=== PATIENT | female | born 1990 | race Caucasian/White ===

== ENCOUNTER → 2018-06-25 09:37 | Outpatient (CLI) | payer OTHER, SELFPAY ==
[2018-06-25 10:31] LABS: Bilirubin Urine UA NEGATIVE (NEGATIVE); Color Urine UA YELLOW; Glucose Urine UA NEGATIVE (Normal); Ketones Urine UA NEGATIVE (NEGATIVE); Leukocyte Esterase Urine UA TRACE (NEGATIVE); Nitrite Urine UA Negative (Negative); Occult Blood Urine UA 2+ (Negative); Protein Urine UA NEGATIVE (Negative); Specific Gravity Urine UA 1.015 (1.000-1.035); Urobilinogen Urine UA 0.2 E.U./dL (0.2)
[2018-06-25 10:55] LABS: Appearance Urine UA Slightly Cloudy; RBC Urine 30-100/HPF (0-5/HPF); WBC Urine 30-100/HPF (0-5/HPF)
[2018-06-25 10:56] LABS: Bacteria Urine Few (2-10); Culture Indicated Urine Specimen Cultured; Mucus Urine 1+ (Negative); Squamous Epithelial Cell Urine 0-1 /HPF
== END ==
PROVIDERS: PCP Family Medicine; Visit Provider Specialist
DX: R31.9 Hematuria, unspecified (principal)
CPT/HCPCS: 81001; 87077; 87086; 87186

== ENCOUNTER → 2019-10-26 13:15 | Outpatient (CLI) | payer OTHER, SELFPAY ==
[2019-10-26 14:48] LABS: HCG Quantitative /Beta subunit 20639 mIU/mL
== END ==
PROVIDERS: PCP Family Medicine; Visit Provider Specialist
DX: O20.9 Hemorrhage in early pregnancy, unspecified (principal)
CPT/HCPCS: 36415; 84702

== ENCOUNTER → 2019-10-28 08:21 | Outpatient (CLI) | payer OTHER, SELFPAY ==
[2019-10-28 10:00] LABS: HCG Quantitative /Beta subunit 29881 mIU/mL
== END ==
PROVIDERS: PCP Family Medicine; Visit Provider Specialist
DX: O20.9 Hemorrhage in early pregnancy, unspecified (principal)
CPT/HCPCS: 36415; 84702

== ENCOUNTER → 2019-11-16 10:44 | Outpatient (CLI) | payer OTHER, SELFPAY ==
[2019-11-16 11:40] LABS: Add Manual Diff / Slide Review NO; Basophils Absolute Auto 0 /uL (0-100); Basophils Percent Auto 0.4 % (0-2); Eosinophils Absolute Auto 100 /uL (0-450); Hematocrit 37.3 % (36-46); Hemoglobin 12.9 g/dL (12.0-16.0); Lymphocytes Absolute Auto 1600 /uL (1100-4500); Lymphocytes Percent Auto 27.6 % (25-40); Mean Corpuscular HGB Conc 34.5 % (30-36); Mean Corpuscular Hemoglobin 31.5 PG (26-34); Mean Corpuscular Volume 91.4 fL (80-100); Monocytes Absolute Auto 400 /uL (0-900); Monocytes Percent Auto 7.1 % (3-14); Neutrophils Absolute Auto 3700 /uL (1500-7000); Neutrophils Percent Auto 63.9 % (50-75); Platelet Count 186 X10^3/uL (150-400); Red Blood Cell Count 4.08 X10^6/uL (4.0-5.2); Red Cell Distribution Width 12.3 % (11.6-14.8); White Blood Cell Count 5.9 X10^3/uL (4.5-11.0)
[2019-11-16 11:45] LABS: Appearance Urine UA CLEAR; Bilirubin Urine UA NEGATIVE (NEGATIVE); Color Urine UA YELLOW; Glucose Urine UA NEGATIVE (Negative); Ketones Urine UA NEGATIVE (NEGATIVE); Leukocyte Esterase Urine UA NEGATIVE (NEGATIVE); Nitrite Urine UA NEGATIVE (Negative); Occult Blood Urine UA NEGATIVE (Negative); Protein Urine UA NEGATIVE (Negative); Urobilinogen Urine UA 0.2 E.U./dL (0.2)
[2019-11-16 16:52] LABS: Hepatitis B Surface Antigen NEGATIVE s/c (NEGATIVE); Rubella Antibody IgG 60.8 IU/mL (>15)
[2019-11-16 17:02] LABS: HIV 1 & 2 Ab/Ag 4th Gen Combo NEGATIVE (NEGATIVE); Hep C Virus Ab w/Reflex Quant NEGATIVE s/c (NEGATIVE)
[2019-11-18 08:02] LABS: Varicella IgG Antibody < 135.00 Index (< 135.00)
[2019-11-18 20:38] LABS: RPR Screen Nonreactive (Nonreactive)
== END ==
PROVIDERS: PCP Family Medicine; Referring Provider Specialist; Visit Provider Specialist
DX: Z34.01 Encounter for supervision of normal first pregnancy, first trimester (principal)
CPT/HCPCS: 36415; 80055; 81003; 86787; 86803; 86850; 86900; 86901; 87086; 87389

== ENCOUNTER → 2020-01-11 15:19 | Outpatient (CLI) | payer OTHER, SELFPAY ==
[2020-01-13 22:13] LABS: AFP, Serum 28.4 ng/mL (.); Calc Gestational Age Ultrasound (.); Estriol, Free 0.69 ng/mL (.); Inhibin A, Dimeric 118.47 pg/mL (.); Inhibin A, MoM 0.68 (.); Maternal Ethnicity Caucasian (.); Maternal Weight 136 lbs (.); Number of Fetuses No (.); OSBR Risk 1 IN 10000 (.); Results Report (.); Test Results *Screen Negative* (.); hCG, MoM 0.55 (.); hCG, Serum 20810 mIU/mL (.)
== END ==
PROVIDERS: PCP Family Medicine; Referring Provider Specialist; Visit Provider Specialist
DX: Z34.82 Encounter for supervision of other normal pregnancy, second trimester (principal)
CPT/HCPCS: 36415; 82105; 82677; 84702; 86336

== ENCOUNTER → 2020-02-07 12:47 | Outpatient (CLI) | payer OTHER, SELFPAY ==
--- NOTE | 2020-02-07 12:48 | DI.US.S_ITS ---
PROCEDURE: US OB >= 14 WEEKS FETUS INDICATIONS: 20 WEEK ANATOMY SCAN OUTSIDE/PRIOR DATING DATA: Last menstrual period (LMP): 09/11/19. LMP-based estimated date of delivery (CARLOS ENRIQUE): 06/17/20. First dating scan (date and location): 11/16/19, Dr. Blackman's office. Estimated date of delivery (CARLOS ENRIQUE) from first dating scan: 06/22/20. TECHNIQUE: Real-time scanning was performed of the fetus, with image documentation and biometric measurements. COMPARISON: [facility], , OB >= 14 WEEKS FETUS, 01/11/2020, 14:58. [facility], , OB <= 14 WEEKS FETUS, 11/16/2019, 9:53. FINDINGS: General: A single live intrauterine gestation is present. Presentation: Vertex. Placenta: Placental position is anterior, without previa. Amniotic fluid index: 18.6 cm, normal range is 5-24 cm. heart rate: 145 beats per minute. Maternal cervical canal: 4 cm long. Normal lower limit is 2.5 cm. biometrics: Biparietal diameter: 4.9 cm equals 20 weeks 6 days Head circumference: 18.5 cm equals 20 weeks 6 days Abdominal circumference: 17.8 cm equals 20 weeks 6 days Femur length: 3.4 cm equals 20 weeks 5 days Estimated gestational age from initial scan: 20 weeks 4 days Composite gestational age from present scan: 20 weeks 6 days Estimated weight and percentile: 377 g, 57th percentile Measurement variability for biometric dating: +/- 7 days from 14 weeks to 15 weeks 6 days gestation, +/- 10 days from 16 weeks to 21 weeks 6 days gestation, +/- 2 weeks from 22 weeks to 27 weeks 6 days gestation, +/- 3 weeks for 28 weeks gestation or later. weight reference: 4500 g or EFW >90/95% is considered macrosomia or large for gestational age. EFW <10% is small for gestational age. EFW 5% or less is considered intra-uterine growth restriction. Anatomic survey: Neuro: Ventricles are non-dilated at less than 10 mm. Cisterna magna is normal at 3-11 mm. Cerebellum is normal in size and morphology. Nuchal skin fold: Normal at less than 6 mm between 14-21 weeks gestational age. Face: Nose and lips, facial profile are normal. Spine: No evidence for spina bifida. Heart: 4-chambered heart is present, with normal ventricular outflow tracts. Diaphragm: Diaphragm is intact. Stomach: Left-sided stomach is present. Kidneys: No hydronephrosis. Normal is less than 5 mm in 2nd trimester, less than 7 mm in 3rd trimester. Cord: 3-vessel cord has orthotopic insertion. Bladder: Normal in size. Extremities: All 4 extremities identified. IMPRESSION: A single live intrauterine is seen. No anatomic abnormalities are identified. No significant discrepancy is found between the estimated gestational age based on these images and the estimated gestational age based upon the given outside dating. Dictated by: Giancarlo Dc M.D. on 02/07/2020 at 14:33 Approved by: Giancarlo Dc M.D. on 02/07/2020 at 14:35
== END ==
PROVIDERS: PCP Family Medicine; Referring Provider Family Medicine; Visit Provider Specialist
DX: Z34.02 Encounter for supervision of normal first pregnancy, second trimester (principal); Z3A.20 20 weeks gestation of pregnancy
CPT/HCPCS: 76811

== ENCOUNTER → 2020-03-15 09:32 | Outpatient (CLI) | payer OTHER, SELFPAY ==
[2020-03-15 11:22] LABS: Hematocrit 32.8 % (36-46); Hemoglobin 11.5 g/dL (12.0-16.0)
[2020-03-15 11:46] LABS: GTT (PREG) 1 Hour PP 50gm Dose 127 mg/dL (76-139)
== END ==
PROVIDERS: PCP Family Medicine; Referring Provider Specialist; Visit Provider Specialist
DX: Z34.82 Encounter for supervision of other normal pregnancy, second trimester (principal)
CPT/HCPCS: 36415; 82950; 85014; 85018

== ENCOUNTER 2020-04-09 20:08 | Outpatient (CLI) | payer OTHER, SELFPAY ==
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
== END 2020-04-09 20:45 | disposition home or self-care (01) ==
LOC: OB 04-11 14:46
PROVIDERS: PCP Family Medicine; Referring Provider Specialist; Visit Provider Specialist
DX: O26.893 Other specified pregnancy related conditions, third trimester (principal); V49.60XA Unspecified car occupant injured in collision with unspecified motor vehicles in traffic accident, initial encounter; Z3A.29 29 weeks gestation of pregnancy
CPT/HCPCS: 59025; G0378; G0379

== ENCOUNTER → 2020-05-28 09:08 | Outpatient (CLI) | payer OTHER, SELFPAY ==
[2020-05-29 08:19] LABS: Strep Grp B PCR NEG for Grp B Strep
== END ==
PROVIDERS: PCP Specialist; Visit Provider Specialist
DX: Z34.03 Encounter for supervision of normal first pregnancy, third trimester (principal); Z3A.36 36 weeks gestation of pregnancy
CPT/HCPCS: 87653

== ENCOUNTER 2020-06-25 09:16 | Outpatient (CLI) | payer OTHER, SELFPAY ==
--- NOTE | 2020-06-25 10:21 | P.TNLD_ITS ---
Visit Information Visit Information Date of evaluation: 06/25/20 Primary OB Provider: Gloria Blackman Reason for Evaluation: Yes non-stress test non-stress test reason: other (Postdates) [facility] Medical History (Updated 06/25/20 @ 10:22 by Gloria Blackman MD) Abnormal Pap smear of cervix (Chronic ~2017) Acne (Acute) Anxiety (Acute) Hayfever (Acute) Irregular heartbeat (Acute) UTI (urinary tract infection) (Acute) Surgical History (Updated 11/10/19 @ 09:53 by Kelsey Topete, RN) Anesthesia (Resolved) History of hernia surgery (Resolved ~1997) [place] teeth extracted (Acute) Family History (Updated 11/10/19 @ 09:40 by Kelsey Topete, RONDA) Grandfather Cardiac failure Grandfather Rheumatoid arthritis Mother Anxiety Father No problems noted. 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 Follow-up in 4 days. OB Disposition: home
== END 2020-06-25 10:26 | disposition home or self-care (01) ==
LOC: LABOR 10:03 → OB 06-26 15:03
PROVIDERS: PCP Specialist; Referring Provider Obstetrics & Gynecology; Visit Provider Obstetrics & Gynecology
DX: O48.0 Post-term pregnancy (principal)
CPT/HCPCS: 59025; G0378; G0379

== ENCOUNTER 2020-06-28 07:19 | Inpatient (IN) | payer OTHER, SELFPAY ==
[2020-06-28] MEDS: LACTATED RINGERS 1,000 ML 100 ML IV (08:35)
[2020-06-28] MEDS: OXYTOCIN PREMIX 30 UNIT/500 ML PLAST..BAG IV (09:10)
[2020-06-28 09:16] VITALS: BP 116/70
[2020-06-28 09:42] LABS: Add Manual Diff / Slide Review NO; Basophils Absolute Auto 0 /uL (0-100); Basophils Percent Auto 0.3 % (0-2); Eosinophils Absolute Auto 100 /uL (0-450); Eosinophils Percent Auto 0.8 % (2-4); Hemoglobin 12.6 g/dL (12.0-16.0); Lymphocytes Absolute Auto 1800 /uL (1100-4500); Lymphocytes Percent Auto 19.3 % (25-40); Mean Corpuscular HGB Conc 34.9 % (30-36); Mean Corpuscular Hemoglobin 32.9 PG (26-34); Mean Corpuscular Volume 94.3 fL (80-100); Monocytes Absolute Auto 900 /uL (0-900); Monocytes Percent Auto 9.9 % (3-14); Neutrophils Absolute Auto 6500 /uL (1500-7000); Neutrophils Percent Auto 69.7 % (50-75); Platelet Count 157 X10^3/uL (150-400); Red Blood Cell Count 3.82 X10^6/uL (4.0-5.2); Red Cell Distribution Width 13.4 % (11.6-14.8); White Blood Cell Count 9.4 X10^3/uL (4.5-11.0)
[2020-06-28 10:30] LABS: COVID19 -Nasal RAPID Negative (Negative)
--- NOTE | 2020-06-28 17:01 | P.HPOB_ITS ---
OB HPI Date/Time Date of admission: 06/28/20 Date Patient Seen: 06/28/20 Time Patient Seen: 09:00 History of Present Condition Chief complaint: Induction : 1 Para: 0 Estimated Date of Delivery: 06/22/20 Estimated Gestational Age (weeks): 40 Narrative: Natalee Cuello is a 30 year old female admitted for postdates induction Indications Indication for induction OB: post dates History of Present care: good care, initiated at week # (8), number of visits (13) and pounds weight gain (48) Dating criteria: based on 1st trimester US only Ultrasounds: normal mid trimester US Obstetrical complications: none Medical complications: none Preadmission Labs Blood type: A (+) positive -: Antibody screen: negative, GBS status: negative, HBsAG: negative, HIV: negative and RPR/VDLR: negative -: Chlamydia screen: not detected and Gonorrhea screen: not detected -: Rubella: immune and Varicella: immune HCAB: negative Quad screen: Normal 1 hr GTT: 127 Evaluation Evaluation Baseline heart rate: 140 Variability: Moderate (11-25) monitor accelerations: Present monitor decelerations: Absent Contraction Frequency (minutes): 5 Uterine Contraction Intensity: Mild Category of Tracing: Reactive Cervical dilation (cm): 1 Cervical effacement (%): 80 station: -1 Laboratory results: Laboratory Tests 06/28/20 06/28/20 06/28/20 07:34 09:00 09:00 WBC 9.4 RBC 3.82 L Hgb 12.6 Hct 36.0 MCV 94.3 MCH 32.9 MCHC 34.9 RDW 13.4 Plt Count 157 Neut % (Auto) 69.7 Lymph % (Auto) 19.3 L [place] % (Auto) 9.9 Eos % (Auto) 0.8 L Baso % (Auto) 0.3 Neut # (Auto) 6500 Lymph # (Auto) 1800 [place] # (Auto) 900 Eos # (Auto) 100 Baso # (Auto) 0 COVID-19 PCR Negative Blood Type A Positive Antibody Screen Negative [facility] Medical History (Updated 06/25/20 @ 10:22 by Gloria Blackman MD) Abnormal Pap smear of cervix (Chronic ~2018) Acne (Acute) Anxiety (Acute) Hayfever (Acute) Irregular heartbeat (Acute) UTI (urinary tract infection) (Acute) Surgical History (Updated 11/10/19 @ 09:53 by Kelsey Topete, RONDA) Anesthesia (Resolved) History of hernia surgery (Resolved ~1997) [place] teeth extracted (Acute) Family History (Updated 11/10/19 @ 09:40 by Kelsey Toepte, RONDA) Grandfather Cardiac failure Grandfather Rheumatoid arthritis Mother Anxiety Father No problems noted. 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) current occupational exposures/hazards: No special melita needs: No Smoking Status: Never smoker alcohol intake: former (pre- : social) substance use type: does not use Meds Home Medications and Allergies Home Medications Medication Instructions Recorded Confirmed Type ipratropium bromide 42 mcg (0.06 2 spray NASAL TID #15 ml 05/10/19 06/28/20 Rx %) nasal spray prenat.vits,nicolas,[id number] 1 tab PO DAILY 10/28/19 06/28/20 History ferrous gluconate 324 mg (38 mg 324 mg PO DAILY 05/02/20 06/28/20 History iron) tablet Double Electric Breast Pump and #1 each 06/14/20 06/18/20 Rx Supplies Allergies Allergy/AdvReac Type Severity Reaction Status Date / Time No Known Drug Allergies Allergy Verified 06/18/20 10:16 Review of Systems Review of Systems Narrative: Patient denies headaches, scotomata, epigastric pain. Good movement. No leakage of fluid. No contractions ROS: Yes All systems reviewed with the patient and are negative except as otherwise documented Exam Vital Signs (past 8 hours): - 06/28/20 09:16 Blood Pressure 116/70 Narrative Exam Narrative: HEENT exam within normal limits. Lungs are clear to auscultation percussion. Heart is regular rate and rhythm no S3-S4 or murmurs. Abdomen is gravid. Fetus is vertex. Extremities without edema and nontender. Objective Labs Result Diagrams: 06/28/20 09:00 Labs: Laboratory Results - last 24 hr 06/28/20 06/28/20 06/28/20 07:34 09:00 09:00 WBC 9.4 RBC 3.82 L Hgb 12.6 Hct 36.0 MCV 94.3 MCH 32.9 MCHC 34.9 RDW 13.4 Plt Count 157 Neut % (Auto) 69.7 Lymph % (Auto) 19.3 L [place] % (Auto) 9.9 Eos % (Auto) 0.8 L Baso % (Auto) 0.3 Neut # (Auto) 6500 Lymph # (Auto) 1800 [place] # (Auto) 900 Eos # (Auto) 100 Baso # (Auto) 0 COVID-19 PCR Negative Blood Type A Positive Antibody Screen Negative Assessment and Plan Assessment and Plan Assessment and Plan narrative: Primigravida at 40 and 6 7 weeks by dates admitted for induction for postdates. Pitocin was started. Anticipated vaginal delivery.
[2020-06-29] MEDS: LACTATED RINGERS 1,000 ML 100 ML IV (07:24)
--- NOTE | 2020-06-29 08:36 | PM.OBPRVD ---
Events: Labor Induction (Postdates) Labor & Delivery Delivery date: 06/29/20 Cervical ripening method: per Rodriguez bulb protocol Induction method: per pitocin protocol Delivery monitor: external FHT and external uterine Route of delivery: L&D Laceration Description: Perineal - 3rd Degree Delivery repair: vicryl (2 0) and chromic (3 0) Estimated blood loss (mL): 450 Anesthesia type: Epidural Narrative: Patient arrived on Labor and delivery for induction. She has region started on Pitocin but had no change in her cervix so was switched to a Rodriguez bulb induction. The Rodriguez was extruded from the cervix and she was restarted on Pitocin. Patient received an epidural catheter for pain control. She had spontaneous rupture membranes clear fluid. heart tones category 1 to category 2 throughout labor. She did have a slight rise in heart rate to the 170s with pushing. She had no fevers. She had a spontaneous vaginal delivery over an intact perineum. The viable male infant was placed on the maternal abdomen. After the cord stopped pulsating the cord was clamped, cut, and cord bloods obtained. The placenta delivered spontaneously, intact, with 3 vessels. There were no cervical or vaginal tears. Patient had a partial third-degree perineal tear. The rectal sphincter was repaired with 2 0 Vicryl suture reattaching the capsule on 3 sides. The perineum was built up with deep 2 0 Vicryl sutures. The rest of the tear was repaired with 3 0 chromic suture in the usual 2 layer fashion. Estimated blood loss 450 cc. Both mother doing well. Baby 1: gender: Male Presentation: vertex position: Right Occiput Anterior Placenta delivery description: Spontaneous cord vessel description: 3 Vessels score (1 min): 8 score (5 min): 9
[2020-06-29] MEDS: IBUPROFEN 600 MG TABLET PO ×2 (12:07→18:28)
[2020-06-30] MEDS: LANOLIN OINT 7 GM 1 APPLIC TOP (03:03)
[2020-06-30] MEDS: IBUPROFEN 600 MG TABLET PO ×2 (03:03→08:45)
[2020-06-30 06:09] LABS: Add Manual Diff / Slide Review NO; Basophils Absolute Auto 100 /uL (0-100); Basophils Percent Auto 0.4 % (0-2); Eosinophils Absolute Auto 200 /uL (0-450); Eosinophils Percent Auto 1.2 % (2-4); Hematocrit 32.1 % (36-46); Hemoglobin 10.7 g/dL (12.0-16.0); Lymphocytes Absolute Auto 2100 /uL (1100-4500); Lymphocytes Percent Auto 15.3 % (25-40); Mean Corpuscular HGB Conc 33.5 % (30-36); Mean Corpuscular Volume 95.6 fL (80-100); Monocytes Absolute Auto 1000 /uL (0-900); Monocytes Percent Auto 7.7 % (3-14); Neutrophils Absolute Auto 10200 /uL (1500-7000); Neutrophils Percent Auto 75.4 % (50-75); Platelet Count 131 X10^3/uL (150-400); Red Blood Cell Count 3.36 X10^6/uL (4.0-5.2); Red Cell Distribution Width 13.3 % (11.6-14.8); White Blood Cell Count 13.5 X10^3/uL (4.5-11.0)
[2020-06-30] MEDS: DOCUSATE 100 MG CAPSULE PO (08:45)
--- NOTE | 2020-06-30 10:30 | P.DS_ITS ---
Discharge Providers Provider Date of admission: 06/28/20 07:19 Discharge Date: 06/30/20 Primary care physician: Gloria Blackman MD Consults: 06/28/20 07:28 Consult to Anesthesiology Urgent Comment: Consulting Provider: Anesthesiologist Reason for consultation: epidural Has provider been notified: No 06/30/20 08:34 Consult to Manager Secondary Routine Comment: Discharge provider: Gloria Blackman MD Summary Hospital Course Date Patient Seen: 06/30/20 Time Patient Seen: 10:30 Procedures: induction, epidural catheter, vaginal delivery, repair third degree repair Hospital Course: pt was induced with leyva bulb and pitocin. She had an epidural for pain control. She had a spontaneous vaginal delivery with a repair of a third degree tear. She is ambulatory, tolerating a regular diet, minimal pain, passing gas. She is breast feeding without difficulty. Peripartum Data Delivery Method: Natural Vaginal Laceration Description: Perineal - 3rd Degree complications: none 1: Gender: Male Disposition of : home Discharge Diagnosis (1) Vaginal delivery: Status: Acute Status at Discharge Cognitive/behavioral status at discharge: oriented Functional status at discharge: independent ambulation Overall status at discharge: patient is progressing back to baseline Time Spent with Patient Time attestation: Total time spent providing and/or coordinating discharge services: Time spent: Less than 30 minutes Objective Labs Result Diagrams: 06/30/20 05:40 Labs: Laboratory Results - last 24 hr 06/30/20 05:40 WBC 13.5 H RBC 3.36 L Hgb 10.7 L Hct 32.1 L MCV 95.6 MCH 32.0 MCHC 33.5 RDW 13.3 Plt Count 131 L Neut % (Auto) 75.4 H Lymph % (Auto) 15.[address] [facility] % (Auto) 7.7 Eos % (Auto) 1.2 L Baso % (Auto) 0.4 Neut # (Auto) 60328 H Lymph # (Auto) 2100 [facility] # (Auto) 1000 H Eos # (Auto) 200 Baso # (Auto) 100 Exam Vital Signs (past 8 hours): BP 115/67, P 110, T 97.4 Narrative Exam Narrative: Abdomen is soft, non tender. Uterus is firm, at U, non tender. Mild lochia. Third degree repair intact. Extremities without edema, NT. Pt is Rh +, Rubella Immune, she received the Tdap in the third trimester Discharge Plan Discharge Plan Patient Disposition: Home Discharge orders & Medications Prescriptions: Continued ipratropium bromide 42 mcg (0.06 %) spray,non-aerosol 2 spray NASAL TID Qty: 15 RF: 0 (DME) Double Electric Breast Pump and Supplies See Rx Instructions .ROUTE .MEDSUPPLY Qty: 1 RF: 0 prenat.vits,nicolas,[id number] Tablet 1 tab PO DAILY RF: 0 ferrous gluconate 324 mg (38 mg iron) tablet 324 mg PO DAILY RF: 0 Follow up/Referrals: Gloria Blackman MD [Primary Care Provider] - (please follow up w/ Dr. Blackman on Thursday, @ 3pm) Diet/Activity/Treatments Diet: Regular Activity: nothing in vagina for 6 weeks Skin/Wound/Dressing Care Report to your healthcare provider any signs of infection, such as:: chills, fever and increased pain Visit Report/Discharge Packet Stand Alone Forms: Discharge: Care Visit Report Forms: Patient Portal/API, Stroke Signs & Symptoms Discharge Data Primary Care Provider: Gloria Blackman Attending Provider: Rajni Grey Admrody Date/Time: 06/28/20 07:19
[2020-06-30 12:31] VITALS: BP 112/65; PULSE 98; RESP 15; TEMP 36.7
== END 2020-06-30 14:15 | disposition home or self-care (01) | DRG 768 ==
PROVIDERS: Admitting Provider Obstetrics & Gynecology; PCP Specialist; Referring Provider Obstetrics & Gynecology; Visit Provider Obstetrics & Gynecology
DX: O48.0 Post-term pregnancy (principal); Z37.0 Single live birth; O70.20 Third degree perineal laceration during delivery, unspecified; Z3A.40 40 weeks gestation of pregnancy
CPT/HCPCS: 01967; 36415; 59050; 59400; 85025; 86850; 86900; 86901; 87635; G0378; G0379; J2590

== ENCOUNTER → 2020-12-19 09:33 | Outpatient (CLI) | payer OTHER, SELFPAY ==
[2020-12-19] MEDS: COVID-19 VACC #1, MRNA(MOD) 100 MCG/0.5 ML VIAL IM (09:49)
== END ==
PROVIDERS: PCP Specialist; Visit Provider Internal Medicine
DX: Z23 Encounter for immunization (principal)
CPT/HCPCS: 0011A; 91301

== ENCOUNTER → 2021-01-10 16:07 | Outpatient (CLI) | payer OTHER, SELFPAY ==
[2021-01-10 16:34] LABS: Add Manual Diff / Slide Review NO; Basophils Absolute Auto 0 /uL (0-100); Basophils Percent Auto 0.4 % (0-2); Eosinophils Absolute Auto 100 /uL (0-450); Eosinophils Percent Auto 1.4 % (2-4); Hematocrit 38.7 % (36-46); Hemoglobin 12.9 g/dL (12.0-16.0); Lymphocytes Absolute Auto 2700 /uL (1100-4500); Lymphocytes Percent Auto 37.9 % (25-40); Mean Corpuscular HGB Conc 33.3 % (30-36); Mean Corpuscular Hemoglobin 29.9 PG (26-34); Mean Corpuscular Volume 89.6 fL (80-100); Monocytes Absolute Auto 500 /uL (0-900); Monocytes Percent Auto 7.6 % (3-14); Neutrophils Absolute Auto 3800 /uL (1500-7000); Neutrophils Percent Auto 52.7 % (50-75); Platelet Count 194 X10^3/uL (150-400); Red Blood Cell Count 4.32 X10^6/uL (4.0-5.2); Red Cell Distribution Width 12.7 % (11.6-14.8); White Blood Cell Count 7.1 X10^3/uL (4.5-11.0)
[2021-01-10 17:21] LABS: Alanine Aminotransferase 13 IU/L (<35); Albumin 4.4 g/dL (3.5-5.0); Albumin Globulin Ratio 1.4 (1.0-2.8); Alkaline Phosphatase 62 U/L (38-126); Aspartate Aminotransferase 26 IU/L (14-36); BUN Creatinine Ratio 23.1 (6-22); Bilirubin Total 0.2 mg/dL (0.2-1.3); Blood Urea Nitrogen 12 mg/dL (7-17); Calcium 9.3 mg/dL (8.4-10.2); Carbon Dioxide 28 mmol/L (22-32); Chloride 104 mmol/L (98-107); Estimated Glomerular Filt Rate > 60.0 mL/min (>60); Globulin 3.2 g/dL (1.7-4.1); Glucose 83 mg/dL (70-100); HEMOLYSIS < 15 (0-50); Sodium 139 mmol/L (137-145); Total Protein 7.6 g/dL (6.3-8.2)
[2021-01-10 17:51] LABS: TSH w/ Reflex to FT4 0.32 uIU/mL (0.47-4.68)
[2021-01-10 18:50] LABS: Free T4, Direct Thyroxine 1.01 ng/dL (0.78-2.19)
== END ==
PROVIDERS: PCP Family Medicine; Referring Provider Family Medicine; Visit Provider Family Medicine
DX: F41.9 Anxiety disorder, unspecified (principal); R00.2 Palpitations
CPT/HCPCS: 36415; 80053; 84439; 84443; 85025

== ENCOUNTER → 2021-01-17 07:42 | Outpatient (CLI) | payer OTHER, SELFPAY ==
[2021-01-17] MEDS: COVID-19 VACC #2, MRNA(MOD) 100 MCG/0.5 ML VIAL IM (07:49)
== END ==
PROVIDERS: PCP Family Medicine; Visit Provider Internal Medicine
DX: Z23 Encounter for immunization (principal)
CPT/HCPCS: 0012A; 91301

== ENCOUNTER → 2021-01-29 14:12 | Outpatient (CLI) | payer OTHER, SELFPAY ==
[2021-01-29 17:39] LABS: Free T3, Triiodothyronine Free 3.32 pg/mL (2.77-5.27)
[2021-01-29 17:53] LABS: TSH w/ Reflex to FT4 0.65 uIU/mL (0.47-4.68)
[2021-01-30 19:11] LABS: Anti Thyroglobulin Antibody <1.0 IU/mL (0.0-0.9); Thyroid Peroxidase Antibodies <9 IU/mL (0-34)
== END ==
PROVIDERS: PCP Family Medicine; Referring Provider Family Medicine; Visit Provider Family Medicine
DX: F41.9 Anxiety disorder, unspecified (principal); R00.2 Palpitations; R79.89 Other specified abnormal findings of blood chemistry
CPT/HCPCS: 36415; 84443; 84481; 86376; 86800

== ENCOUNTER → 2021-01-30 14:56 | Outpatient (CLI) | payer OTHER, SELFPAY ==
--- NOTE | 2021-02-27 08:47 | PM.CARDMON.1 ---
Family Law Specialist Report Referral & Results Date Patient Seen: 01/30/21 Requesting provider: Sushant Jones Indication: Palpitations Duration of monitoring (days): 7 Diary information: There are no patient triggered events or diary entries to review Data: Minimum heart rate was 47 beats per minute at 22:03 on 02/03/2021 Maximum heart rate was 157 beats per minute at 10:34 on 02/04/2021 Less than 1% of identified beats were ventricular or supraventricular ectopic in origin, which would classify them as rare. 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 No etiology for sense of palpitations identified on this study
== END ==
PROVIDERS: PCP Family Medicine; Referring Provider Family Medicine; Visit Provider Family Medicine
DX: R00.2 Palpitations (principal)
CPT/HCPCS: 93242; 93244

== ENCOUNTER → 2021-07-01 14:02 | Outpatient (CLI) | payer OTHER, SELFPAY ==
[2021-07-01 18:32] LABS: COVID19 -Nasal RAPID Negative (Negative)
== END ==
PROVIDERS: PCP Family Medicine; Visit Provider Nurse Practitioner Family
DX: Z20.822 Contact with and (suspected) exposure to COVID-19 (principal)
CPT/HCPCS: 87635

== ENCOUNTER → 2021-08-09 17:03 | Outpatient (CLI) | payer OTHER, SELFPAY ==
[2021-08-09 17:52] LABS: Add Manual Diff / Slide Review NO; Basophils Absolute Auto 0 /uL (0-100); Basophils Percent Auto 0.4 % (0-2); Eosinophils Absolute Auto 100 /uL (0-450); Eosinophils Percent Auto 1.6 % (2-4); Hematocrit 36.4 % (36-46); Hemoglobin 12.5 g/dL (12.0-16.0); Lymphocytes Absolute Auto 2400 /uL (1100-4500); Lymphocytes Percent Auto 31.3 % (25-40); Mean Corpuscular HGB Conc 34.4 % (30-36); Mean Corpuscular Hemoglobin 30.4 PG (26-34); Mean Corpuscular Volume 88.6 fL (80-100); Monocytes Absolute Auto 500 /uL (0-900); Monocytes Percent Auto 6.9 % (3-14); Neutrophils Absolute Auto 4600 /uL (1500-7000); Neutrophils Percent Auto 59.8 % (50-75); Platelet Count 218 X10^3/uL (150-400); Red Blood Cell Count 4.12 X10^6/uL (4.0-5.2); Red Cell Distribution Width 12.5 % (11.6-14.8); White Blood Cell Count 7.6 X10^3/uL (4.5-11.0)
[2021-08-09 18:00] LABS: Appearance Urine UA CLEAR; Bilirubin Urine UA NEGATIVE (NEGATIVE); Color Urine UA YELLOW; Glucose Urine UA NEGATIVE (Negative); Ketones Urine UA NEGATIVE (NEGATIVE); Leukocyte Esterase Urine UA NEGATIVE (NEGATIVE); Nitrite Urine UA NEGATIVE (Negative); Occult Blood Urine UA NEGATIVE (Negative); Protein Urine UA NEGATIVE (Negative); Specific Gravity Urine UA <=1.005 (1.000-1.035); Urobilinogen Urine UA 0.2 E.U./dL (0.2)
[2021-08-09 18:35] LABS: pH Urine UA 5.5 (4.5-8.0)
[2021-08-10 03:45] LABS: Hepatitis B Surface Antigen NEGATIVE s/c (NEGATIVE)
[2021-08-10 03:51] LABS: HIV 1 & 2 Ab/Ag 4th Gen Combo NEGATIVE (NEGATIVE); Hep C Virus Ab w/Reflex Quant NEGATIVE s/c (NEGATIVE)
[2021-08-10 08:13] LABS: RPR Screen Non Reactive (Non Reactive); Varicella IgG Antibody <135 index (Immune >165)
[2021-08-17 13:42] LABS: Rubella Antibody IgG 34.4 IU/mL (>15)
== END ==
PROVIDERS: PCP Family Medicine; Referring Provider Specialist; Visit Provider Specialist
DX: Z36.89 Encounter for other specified antenatal screening (principal); O98.311 Other infections with a predominantly sexual mode of transmission complicating pregnancy, first trimester; Z3A.10 10 weeks gestation of pregnancy
CPT/HCPCS: 36415; 80055; 81003; 86787; 86803; 86850; 86900; 86901; 87086; 87389; 87491; 87591

== ENCOUNTER → 2021-08-09 17:04 | Outpatient (CLI) | payer OTHER, SELFPAY ==
[2021-08-09 20:44] LABS: Urine N gonorrhoeae NOT DETECTED
[2021-08-09 20:45] LABS: Urine Chlamydia NOT DETECTED
== END ==
PROVIDERS: PCP Family Medicine; Visit Provider Specialist
DX: Z36.89 Encounter for other specified antenatal screening (principal); O98.311 Other infections with a predominantly sexual mode of transmission complicating pregnancy, first trimester; Z3A.10 10 weeks gestation of pregnancy
CPT/HCPCS: 87491; 87591

== ENCOUNTER → 2021-10-01 08:22 | Outpatient (CLI) | payer OTHER, SELFPAY ==
[2021-10-05 20:22] LABS: AFP, Serum 27.6 ng/mL (.); Calc Gestational Age Ultrasound (.); Inhibin A, Dimeric 93.32 pg/mL (.); Inhibin A, MoM 0.59 (.); Maternal Ethnicity Caucasian (.); Maternal Weight 148 lbs (.); Number of Fetuses No (.); OSBR Risk 1 IN 10000 (.); Results Report (.); Test Results *Screen Negative* (.); hCG, MoM 0.68 (.); hCG, Serum 20449 mIU/mL (.)
== END ==
PROVIDERS: PCP Family Medicine; Referring Provider Specialist; Visit Provider Specialist
DX: Z34.82 Encounter for supervision of other normal pregnancy, second trimester (principal); Z3A.17 17 weeks gestation of pregnancy
CPT/HCPCS: 36415; 82105; 82677; 84702; 86336

== ENCOUNTER → 2021-10-16 07:06 | Outpatient (CLI) | payer OTHER, SELFPAY ==
--- NOTE | 2021-10-16 07:06 | DI.US.S_ITS ---
PROCEDURE: US OB >= 14 WEEKS FETUS INDICATIONS: ANATOMY OUTSIDE/PRIOR DATING DATA: Last menstrual period (LMP): 05/29/2021 LMP-based estimated date of delivery (CARLOS ENRIQUE): 03/05/2022 First dating scan (date and location): 08/19/2021. Estimated date of delivery (CARLOS ENRIQUE) from first dating scan: 03/17/2022. TECHNIQUE: Real-time scanning was performed of the fetus, with image documentation and biometric measurements. COMPARISON: [facility], , OB >= 14 WEEKS FETUS, 10/01/2021, 8:20. FINDINGS: General: A single living intrauterine gestation is present. Presentation: Breech to transverse. Placenta: Placental position is anterior, without previa. Amniotic fluid index: 13.4 cm, normal range is 5-24 cm. Single deepest vertical pocket is 4.6 cm. heart rate: 140 beats per minute. Maternal cervical canal: 4.8 cm long. Normal lower limit is 2.5 cm. biometrics: Biparietal diameter: 4.5 cm, 19 weeks, 4 days Head circumference: 16.9 cm, 19 weeks, 4 days Abdominal circumference: 14.7 cm, 20 weeks, 0 day Femur length: 3.1 cm, 19 weeks, 4 days Clinically estimated gestational age: 19 weeks, 5 days Composite gestational age from present scan: 19 weeks, 5 days. Estimated weight and percentile: 312 grams, 49 percent Anatomic survey: Neuro: Ventricles are non-dilated at less than 10 mm. Cisterna magna is normal at 3-11 mm. Cerebellum is normal in size and morphology. Nuchal skin fold: Normal at less than 6 mm between 14-21 weeks gestational age. Face: Nose and lips, facial profile are normal. Spine: No evidence for spina bifida. Heart: 4-chambered heart is present, with normal ventricular outflow tracts. Diaphragm: Diaphragm is intact. Stomach: Left-sided stomach is present. Kidneys: No hydronephrosis. Normal is less than 5 mm in 2nd trimester, less than 7 mm in 3rd trimester. Cord: 3-vessel cord has orthotopic insertion. Bladder: Normal in size. Extremities: All 4 extremities identified. IMPRESSION: 1. Single live intrauterine with fetus in breech to transverse lie. heart rate is 140 beats per minute. Normal amount of amniotic fluid. Normal growth. Estimated weight is at 49th percentile. 2. Normal anatomic survey. We strive to produce accurate, complete, and clear reports of imaging services. To assist us in improving patient care, this report was composed using standard report templates and voice recognition software. Therefore, it may contain abnormal punctuation, insertions and/or omissions. Occasional wrong-word or sound-alike substitutions may occur. Though we review the report and make efforts to correct it, we do recommend that the report be read carefully in proper context to recognize any text inaccuracies. Dictated by: Gage Schmid M.D. on 10/16/2021 at 9:02 Approved by: Gage Schmid M.D. on 10/16/2021 at 9:05
== END ==
PROVIDERS: PCP Family Medicine; Referring Provider Specialist; Visit Provider Specialist
DX: Z34.82 Encounter for supervision of other normal pregnancy, second trimester (principal); Z3A.19 19 weeks gestation of pregnancy
CPT/HCPCS: 76811

== ENCOUNTER → 2021-11-28 07:16 | Outpatient (CLI) | payer OTHER, SELFPAY ==
[2021-11-28 09:26] LABS: Hematocrit 34.4 % (36-46); Hemoglobin 11.5 g/dL (12.0-16.0)
[2021-11-28 09:51] LABS: GTT (PREG) 1 Hour PP 50gm Dose 154 mg/dL (76-139)
== END ==
PROVIDERS: PCP Family Medicine; Referring Provider Specialist; Visit Provider Specialist
DX: Z34.82 Encounter for supervision of other normal pregnancy, second trimester (principal); Z3A.25 25 weeks gestation of pregnancy
CPT/HCPCS: 36415; 82950; 85014; 85018

== ENCOUNTER → 2021-12-11 07:14 | Outpatient (CLI) | payer OTHER, SELFPAY ==
[2021-12-11 08:39] LABS: Glucose Fasting Gestational 85 mg/dL (76-95)
[2021-12-11 09:52] LABS: Glucose 2 Hour Gest 126 mg/dL (76-155)
[2021-12-11 09:54] LABS: Glucose 1 Hour Gest 141 mg/dL (76-180)
[2021-12-11 10:28] LABS: Glucose Tol Interp,Gestational INTERPRETATION
[2021-12-11 10:54] LABS: Glucose 3 Hour Gest 93 mg/dL (76-140)
== END ==
PROVIDERS: PCP Family Medicine; Referring Provider Specialist; Visit Provider Specialist
DX: O99.810 Abnormal glucose complicating pregnancy (principal)
CPT/HCPCS: 36415; 82951; 82952

== ENCOUNTER → 2022-02-10 08:49 | Outpatient (CLI) | payer OTHER, SELFPAY ==
[2022-02-11 13:42] LABS: Strep Grp B PCR NEG for Grp B Strep
== END ==
PROVIDERS: PCP Family Medicine; Visit Provider Obstetrics & Gynecology
DX: Z34.83 Encounter for supervision of other normal pregnancy, third trimester (principal); Z3A.36 36 weeks gestation of pregnancy
CPT/HCPCS: 87653

== ENCOUNTER 2022-03-05 11:01 | Observation (INO) | payer OTHER, SELFPAY ==
--- NOTE | 2022-03-05 11:53 | PM.OBTRLD ---
Visit Information Visit Information Date of evaluation: 03/05/22 Primary OB Provider: Gloria Blackman Reason for Evaluation: Yes non-stress test non-stress test reason: other (LGA, post dates) [facility] Medical History (Updated 03/05/22 @ 11:54 by Gloria Blackman MD) 40 weeks gestation of Abnormal Pap smear of cervix (~2017) Acne Anemia affecting first (~2019) Anxiety (~2014) Diastasis recti (~01/2020) Hayfever (~1997) Irregular heartbeat Palpitations (~01/2021) anxiety (~07/2020) Umbilical hernia (~12/2019) UTI (urinary tract infection) Vaginal delivery (~06/29/20) Surgical History Anesthesia History of hernia surgery (~1997) [place] teeth extracted Family History (Updated 08/07/21 @ 10:41 by Marissa Smith RN) Grandfather Cardiac failure CAD (coronary artery disease) Hypertension Alcoholic Grandfather Rheumatoid arthritis Cardiac failure CAD (coronary artery disease) Mother Anxiety Father Hyperlipidemia Grandmother No known health problems Grandmother Parkinson disease Depression Lupus Family/Other Pancreatic cancer Cancer Social History marital status: number of children: 1 household members: spouse and children lives independently: Yes caregiver/support person: No housing: house pets and animals: Yes (1 dog: safe. 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 ) current occupational exposures/hazards: No melita/protestant: [employer] special melita needs: No seatbelt use: always do you feel safe at home: Yes Smoking Status: Never smoker second hand exposure: No alcohol intake: former (Pre- : socially.) substance use type: does not use during the past year weight has: remained stable well-balanced diet: daily or most days daily servings fruits/ve-4 caffeine: Yes (1 cup/day. ) Type(s) of exercise: walking and normal ROM and activity frequency: does not exercise (in last month, not feeling well. ) Evaluation Evaluation Baseline heart rate: 130 Variability: Moderate (11-25) monitor accelerations: Present Monitor Decelerations: Absent Contraction Frequency (minutes): 2 Uterine Contraction Intensity: Mild Status: Category l Diagnosis, Plan/Disposition Final Diagnosis (1) 40 weeks gestation of : Status: Acute Plan/Disposition Plan: Patient is waiting for slot for induction she has an appointment in 2 days if not induced prior OB Disposition: home
== END 2022-03-05 12:00 | disposition home or self-care (01) ==
PROVIDERS: Admitting Provider Specialist; PCP Family Medicine; Referring Provider Specialist; Visit Provider Specialist
DX: O36.63X0 Maternal care for excessive fetal growth, third trimester, not applicable or unspecified (principal); O48.0 Post-term pregnancy; Z3A.40 40 weeks gestation of pregnancy
CPT/HCPCS: 59025; G0378; G0379

== ENCOUNTER 2022-03-05 19:10 | Observation (INO) | payer OTHER, SELFPAY | END 2022-03-05 20:55 | disposition home or self-care (01) | PROVIDERS: Admitting Provider Specialist; PCP Family Medicine; Referring Provider Specialist; Visit Provider Specialist | DX: O48.0 Post-term pregnancy (principal); Z3A.40 40 weeks gestation of pregnancy | CPT/HCPCS: 59025; G0378; G0379 ==

== ENCOUNTER 2022-03-06 08:56 | Inpatient (IN) | payer OTHER, SELFPAY ==
[2022-03-06] MEDS: LACTATED RINGERS 1,000 ML 100 ML IV (10:13)
[2022-03-06] MEDS: OXYTOCIN PREMIX 30 UNIT/500 ML PLAST..BAG IV (10:13)
[2022-03-06 10:36] LABS: Add Manual Diff / Slide Review NO; Basophils Absolute Auto 0 /uL (0-100); Basophils Percent Auto 0.5 % (0-2); Eosinophils Absolute Auto 100 /uL (0-450); Eosinophils Percent Auto 0.6 % (2-4); Hematocrit 33.8 % (36-46); Hemoglobin 11.8 g/dL (12.0-16.0); Lymphocytes Absolute Auto 1600 /uL (1100-4500); Lymphocytes Percent Auto 20.4 % (25-40); Mean Corpuscular HGB Conc 34.8 % (30-36); Mean Corpuscular Hemoglobin 31.7 PG (26-34); Monocytes Absolute Auto 600 /uL (0-900); Monocytes Percent Auto 7.8 % (3-14); Neutrophils Absolute Auto 5600 /uL (1500-7000); Neutrophils Percent Auto 70.7 % (50-75); Platelet Count 167 X10^3/uL (150-400); Red Blood Cell Count 3.72 X10^6/uL (4.0-5.2); Red Cell Distribution Width 13.3 % (11.6-14.8)
[2022-03-06 11:19] LABS: COVID19 -Nasal RAPID Negative (Negative)
--- NOTE | 2022-03-06 11:46 | PM.OBHP.1 ---
OB HPI Date/Time Date of admission: 03/06/22 Date Patient Seen: 03/06/22 Time Patient Seen: 09:00 History of Present Condition Chief complaint: : 2 Para: 1 Estimated Date of Delivery: 03/05/22 Estimated Gestational Age (weeks): 40 Narrative: Natalee Cuello is a 31 year old female admitted for induction at term with LGA infant Indications Indication for induction OB: other (LGA) History of Present care: good care, initiated at week # (10), number of visits (13) and pounds weight gain (61) Dating criteria: LMP confirmed by 1st trimester US Ultrasounds: normal mid trimester US Obstetrical complications: none Medical complications: none Preadmission Labs Blood type: A (+) positive -: Antibody screen: negative, GBS status: negative, HBsAG: negative, HIV: negative and RPR/VDLR: negative -: Chlamydia screen: not detected and Gonorrhea screen: not detected -: Rubella: immune and Varicella: not immune HCAB: negative Quad screen: Normal 1 hr GTT: 154 3 hr GTT: 1 hr (141), 2 hr (126) and 3 hr (93) Fasting blood glucose: 85 Prior (ies) History: 06/29/2020 41 week gestation induction with Rodriguez bulb and Pitocin vaginal delivery with epidural 8 lb 11 oz Evaluation Evaluation Baseline heart rate: 130 Variability: Moderate (11-25) monitor accelerations: Present Monitor Decelerations: Absent Contraction Frequency (minutes): 7 Uterine Contraction Intensity: Mild Category of Tracing: Reactive Status: Category l Dilation (cm): 3 Effacement (%): 60 station: -3 Position of cervix: mid [facility] Medical History (Updated 03/05/22 @ 11:54 by Gloria Blackman MD) 40 weeks gestation of Abnormal Pap smear of cervix (~2017) Acne Anemia affecting first (~2019) Anxiety (~2014) Diastasis recti (~01/2020) Hayfever (~1997) Irregular heartbeat Palpitations (~01/2021) anxiety (~07/2020) Umbilical hernia (~12/2019) UTI (urinary tract infection) Vaginal delivery (~06/29/20) Surgical History Anesthesia History of hernia surgery (~1997) [place] teeth extracted Family History (Updated 08/07/21 @ 10:41 by Marissa Smith RN) Grandfather Cardiac failure CAD (coronary artery disease) Hypertension Alcoholic Grandfather Rheumatoid arthritis Cardiac failure CAD (coronary artery disease) Mother Anxiety Father Hyperlipidemia Grandmother No known health problems Grandmother Parkinson disease Depression Lupus Family/Other Pancreatic cancer Cancer Social History marital status: number of children: 1 household members: spouse and children lives independently: Yes caregiver/support person: No housing: house pets and animals: Yes (1 dog: safe. 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 ) current occupational exposures/hazards: No melita/presybeterian: Mandaeism special melita needs: No seatbelt use: always do you feel safe at home: Yes Smoking Status: Never smoker second hand exposure: No alcohol intake: former (Pre- : socially.) substance use type: does not use during the past year weight has: remained stable well-balanced diet: daily or most days daily servings fruits/ve-4 caffeine: Yes (1 cup/day. ) Type(s) of exercise: walking and normal ROM and activity frequency: does not exercise (in last month, not feeling well. ) Meds Home Medications and Allergies Home Medications Medication Instructions Recorded Confirmed Type prenat.vits,nicolas,[id number] 1 tab PO DAILY 10/28/19 02/17/22 History Allergies Allergy/AdvReac Type Severity Reaction Status Date / Time No Known Drug Allergies Allergy Verified 02/17/22 09:39 Review of Systems Review of Systems Narrative: Good movement. No leakage of fluid. No headaches, scotomata, epigastric pain. No regular contractions. OB Exam Narrative Exam Narrative: HEENT exam within normal limits. Lungs are clear to auscultation percussion. Heart is regular rate and rhythm no S3-S4 murmurs. Abdomen is gravid. Fetus is vertex. Extremities without edema and nontender Objective Labs Result Diagrams: 03/06/22 09:53 Labs: Laboratory Results - last 24 hr 03/06/22 03/06/22 03/06/22 09:53 09:53 10:35 WBC 8.0 RBC 3.72 L Hgb 11.8 L Hct 33.8 L MCV 91.0 MCH 31.7 MCHC 34.8 RDW 13.3 Plt Count 167 Neut % (Auto) 70.7 Lymph % (Auto) 20.4 L [place] % (Auto) 7.8 Eos % (Auto) 0.6 L Baso % (Auto) 0.5 Neut # (Auto) 5600 Lymph # (Auto) 1600 [place] # (Auto) 600 Eos # (Auto) 100 Baso # (Auto) 0 SARS-CoV-2 (PCR) Negative Blood Type A Positive Antibody Screen Negative Assessment and Plan Assessment and Plan Assessment and Plan narrative: 40 week gestation with earlier ultrasound measurements of fetus 9 lb 11 oz for induction at term for LGA . Will start Pitocin. Time Spent with Patient Total time spent with greater than 50% in coordination of care (as documented) at patient's floor/unit and/or counseling patient:: less than 15 minutes
--- NOTE | 2022-03-06 13:27 | PM.OBPNLAB ---
Date/Time Date Patient Seen: 03/06/22 Time Patient Seen: 13:26 Pain Control Pain control: tolerating well Pelvic Exam Dilation (cm): 3 Effacement (%): 60 station: -3 Amniotic membrane status: Ruptured (AROM) Contractions Contractions on admission: regular Monitor mode: External Pitocin rate (mU/min): 7 Contraction frequency (min): 4 Contraction duration (min): 1 Contraction pattern: Regular Contraction intensity: Moderate Status status: Category l Heart Rate Baseline: 130 Monitor Accelerations: Present Monitor Decelerations: Absent Monitor Variability: Moderate Assessment and Plan Assessment: induction ongoing Plan: continuous present management
--- NOTE | 2022-03-06 18:24 | PM.AN.REGBLK ---
Regional Block Pre-procedure Procedure: Continuous Lumbar Epidural for L&D Attending OB provider: Gloria Blackman PMH/ROS narrative: term uncomplicated gestation, elective induction, FHT reassuring. s/p AROM now very uncomfortable ASA Class: II Labs: Hct 33.8 % (36-46) L 03/06/22 09:53 Plt Count 167 X10^3/uL (150-400) 03/06/22 09:53 Medications: Current Medications Generic Name Dose Route Start Last Admin Trade Name Freq PRN Reason Stop Dose Admin Acetaminophen 650 mg 03/06/22 09:53 Acetaminophen 325 Mg Tablet PO Q4HR PRN Fever/Mild Pain (1-3) Calcium Carbonate 1,000 mg 03/06/22 09:53 Calcium Carbonate 500 Mg Tab PO Q2H PRN Dyspepsia Carboprost Tromethamine 250 mcg 03/06/22 09:53 Carboprost 250 Mcg/Ml Ampul IM Q90M PRN Bleeding Diphenhydramine HCl 25 mg 03/06/22 17:00 Diphenhydramine 50 Mg/Ml Vial IV Q10M PRN Pruritis Lactated Ringer's 1,000 mls @ 100 mls/hr 03/06/22 10:00 03/06/22 10:13 Lactated Ringers IV 100 mls/hr CONT PERLITA Administration Lactated Ringer's 1,000 mls @ 100 mls/hr 03/06/22 10:00 Lactated Ringers IV CONT PERLITA Oxytocin/Lactated Ringer's 30 unit in 500 mls @ 200 mls/hr 03/06/22 09:53 Oxytocin Premix IV CONT PRN Bleeding Protocol Tranexamic Acid 1,000 mg/ 100 mls @ 200 mls/hr 03/06/22 09:53 Sodium Chloride IV NOW PRN Bleeding Oxytocin/Lactated Ringer's 30 unit in 500 mls @ 3 mls/hr 03/06/22 10:00 03/06/22 10:13 Oxytocin Premix IV 3 milliunit/min TITRATE PERLITA 3 mls/hr Administration Protocol 3 MILLIUNIT/MIN FENT 2MCG/ML BUPIV 0.125% EPI 200 mcg in 100 mls @ 6 mls/hr 03/06/22 17:00 Fentanyl/Bupiv/Ns 2mcg/Ml - 0.125% EPIDURAL CONT PERLITA Methylergonovine Maleate 0.2 mg 03/06/22 09:53 Methylergonovine 0.2 Mg/Ml Vial IM NOW PRN Bleeding Methylergonovine Maleate 0.2 mg 03/06/22 09:53 Methylergonovine 0.2 Mg Tablet PO Q6HR PRN Heavy Bleeding Misoprostol 1,000 mcg 03/06/22 09:53 Misoprostol 200 Mcg Tablet [place] NOW PRN Bleeding Misoprostol 400 mcg 03/06/22 09:53 Misoprostol 200 Mcg Tablet SL NOW PRN Bleeding Misoprostol 800 mcg 03/06/22 09:53 Misoprostol 200 Mcg Tablet [place] NOW PRN Bleeding Misoprostol 25 mcg 03/06/22 09:53 Misoprostol 25 Mcg Tablet VAG Q4HR PRN Cervical Ripening Morphine Sulfate 2 mg 03/06/22 09:53 Morphine 2 Mg/Ml Inj IV Q4HR PRN Pain, Moderate (4-6) Nalbuphine HCl 2.5 mg 03/06/22 17:00 Nalbuphine 20 Mg/Ml Ampul IV Q10M PRN Pruritis Ondansetron HCl 4 mg 03/06/22 09:53 Ondansetron 4 Mg/2 Ml Inj IV Q4HR PRN Nausea And Vomiting Oxytocin 10 unit 03/06/22 09:53 Oxytocin 10 Unit/Ml Vial IM NOW PRN Bleeding Zolpidem Tartrate 5 mg 03/06/22 09:53 Zolpidem 5 Mg Tablet PO BEDTIME PRN Sleep Allergies: Allergies Allergy/AdvReac Type Severity Reaction Status Date / Time No Known Drug Allergies Allergy Verified 02/17/22 09:39 Procedure Insertion date: 03/06/22 Insertion time: 17:15 Prep/Local: betadine x3 and 1% lidocaine Interspace: l 3-4 Patient position: sitting Needle: 18 gauge John Loss of resistance with: saline MICHI at (cm): 6 Catheter placed at SKIN (cm): 11 Insertion: No CSF, No Blood, No Paresthesia with insertion, No Paresthesia with injection and No Test dose reaction Initial Medications TEST DOSE time: 17:35 BOLUS DOSE time: 18:29 BOLUS DOSE med: other (fentanyl 100 mcg) Infusion INFUSION: with fentanyl 2 mcg/mL Initial rate (mL/hr): 10 Post-procedure Anesthesia time START: 17:15 Anesthesia time END: 22:31 Post-procedure Anesthesia Assessment: Yes CV function: HR/BP stable, Yes Resp function: RR/sat/airway adequate, Yes Post-op hydration adequate, Yes Pain control adequate, Yes Nausea & vomiting absent, Yes Temperature > 36 C and Yes Mental status appropriate
--- NOTE | 2022-03-06 23:19 | PM.OBPRVD ---
Labor & Delivery Delivery date: 03/06/22 Intrapartal Events: None Induction method: per pitocin protocol Delivery augmentation: rupture of membranes Delivery monitor: external FHT and external uterine Route of delivery: L&D Laceration Description: Perineal - 2nd Degree Delivery repair: chromic (3 0) Estimated blood loss (mL): 450 Anesthesia Type: Epidural Narrative: Patient arrived on Labor and delivery for induction for term with LGA . She was started on Pitocin. She was AROM for clear fluid. She received an epidural catheter for pain control. heart tones category 1 to category 2 throughout labor. The patient had good progress with pushing. There were variables and slow return to heart rate baseline at the very end of pushing. She delivered spontaneously, over an intact perineum. She had a 2 minute shoulder dystocia that was resolved with corkscrew maneuver. A tight nuchal cord was released. Viable male infant was placed on maternal abdomen but due to the slow response to resuscitation the cord was clamped and cut and baby taken to the warmer. The baby responded fairly quickly to resuscitation. Placenta delivered spontaneously, intact, with 3 vessels. There were no cervical or vaginal tears. A second-degree perineal tear was repaired with 3 0 chromic suture in the usual 2 layer fashion. Both and mother doing well. [place] Baby 1: gender: Male Presentation: vertex Position: Right Occiput Anterior Placenta delivery description: Spontaneous Cord Vessel Description: 3 Vessels and Nuchal Cord score (1 min): 6 score (5 min): 8 Plan for aftercare: Routine care
[2022-03-07 02:06] VITALS: TEMP 36.2
[2022-03-07] MEDS: IBUPROFEN 600 MG TABLET PO ×3 (02:06→15:00)
[2022-03-07] MEDS: DERMOPLAST SPRAY 20% 60 ML 1 SPRAY TOP (02:18)
[2022-03-07 06:35] LABS: Add Manual Diff / Slide Review NO; Basophils Absolute Auto 0 /uL (0-100); Basophils Percent Auto 0.3 % (0-2); Eosinophils Absolute Auto 0 /uL (0-450); Eosinophils Percent Auto 0.4 % (2-4); Hematocrit 32.2 % (36-46); Hemoglobin 11.3 g/dL (12.0-16.0); Lymphocytes Absolute Auto 1400 /uL (1100-4500); Lymphocytes Percent Auto 10.6 % (25-40); Mean Corpuscular Hemoglobin 31.8 PG (26-34); Mean Corpuscular Volume 90.8 fL (80-100); Monocytes Absolute Auto 1000 /uL (0-900); Monocytes Percent Auto 7.2 % (3-14); Neutrophils Absolute Auto 11000 /uL (1500-7000); Neutrophils Percent Auto 81.5 % (50-75); Platelet Count 141 X10^3/uL (150-400); Red Blood Cell Count 3.54 X10^6/uL (4.0-5.2); Red Cell Distribution Width 13.7 % (11.6-14.8); White Blood Cell Count 13.4 X10^3/uL (4.5-11.0)
--- NOTE | 2022-03-07 18:09 | PM.OBDS.1 ---
Discharge Providers Provider Date of admission: 03/06/22 08:56 Discharge Date: 03/07/22 Primary care physician: Sushant Jones MD Consults: 03/06/22 09:53 Consult to Anesthesiology Urgent Comment: Consulting Provider: Anesthesiologist Reason for consultation: Epidural Has provider been notified: No 03/07/22 23:17 Consult to Fire And Explosion Investigator Routine Comment: Discharge provider: Gloria Blackman MD Summary Hospital Course Date Patient Seen: 03/07/22 Time Patient Seen: 18:09 Diagnoses: 40 week gestation with vaginal delivery and repair of second-degree tear Hospital Course: Patient was admitted for induction for term with LGA . She was started on Pitocin and had an epidural for pain control. She had a spontaneous vaginal delivery with a 2 minute shoulder dystocia for a 10 lb 11 oz male . Patient is well. Her bleeding is appropriate. She denies any problems with headaches, scotomata, epigastric pain. She is urinating and ambulating well. She is requesting early discharge. Peripartum Data Delivery Method: Natural Vaginal Laceration Description: Perineal - 2nd Degree Procedures: Pitocin induction, epidural catheter, spontaneous vaginal delivery, repair of second-degree tear. complications: none 1: Gender: Male Disposition of : home Discharge Diagnosis (1) Vaginal delivery: Status: Acute Status at Discharge Cognitive/behavioral status at discharge: oriented Functional status at discharge: independent ambulation Time Spent with Patient Time attestation: Total time spent providing and/or coordinating discharge services: Time spent: Less than 30 minutes Objective Labs Result Diagrams: 03/07/22 06:14 Labs: Laboratory Results - last 24 hr 03/07/22 06:14 WBC 13.4 H D RBC 3.54 L Hgb 11.3 L Hct 32.2 L MCV 90.8 MCH 31.8 MCHC 35.0 RDW 13.7 Plt Count 141 L Neut % (Auto) 81.5 H Lymph % (Auto) 10.6 L [place] % (Auto) 7.2 Eos % (Auto) 0.4 L Baso % (Auto) 0.3 Neut # (Auto) 33951 H Lymph # (Auto) 1400 [place] # (Auto) 1000 H Eos # (Auto) 0 Baso # (Auto) 0 Exam Vital Signs (past 8 hours): Blood pressure 115/70, pulse of 80, temperature 36? Narrative Exam Narrative: Abdomen is soft, Nontender. Uterus is firm, at U, minimally tender. Mild lochia. Extremities without edema and nontender. Patient is Rh positive, rubella immune, she received Tdap in the 3rd trimester. Discharge Plan Discharge Plan Patient Disposition: Home Discharge orders & Medications Prescriptions: Continued prenat.vits,nicolas,[id number] Tablet 1 tab PO DAILY 0RF Follow up/Referrals: Gloria Blackman MD [Physician] - (please call the office on Thursday am for your 4 week appt.) Diet/Activity/Treatments Diet: Regular Activity: nothing in vagina for 6 weeks. No other restrictions Skin/Wound/Dressing Care Report to your healthcare provider any signs of infection, such as:: chills, fever and increased pain Visit Report/Discharge Packet Instructions: DI for Labor and Delivery, Vaginal Stand Alone Forms: Discharge: Care Discharge Data Primary Care Provider: Sushant Jones
== END 2022-03-07 18:40 | disposition home or self-care (01) | DRG 807 ==
PROVIDERS: Admitting Provider Specialist; PCP Family Medicine; Referring Provider Specialist; Visit Provider Specialist
DX: O48.0 Post-term pregnancy (principal); Z37.0 Single live birth; Z3A.40 40 weeks gestation of pregnancy; O36.63X0 Maternal care for excessive fetal growth, third trimester, not applicable or unspecified; O70.1 Second degree perineal laceration during delivery; O76 Abnormality in fetal heart rate and rhythm complicating labor and delivery; O66.0 Obstructed labor due to shoulder dystocia; O69.81X0 Labor and delivery complicated by cord around neck, without compression, not applicable or unspecified; Z20.822 Contact with and (suspected) exposure to COVID-19
CPT/HCPCS: 01967; 36415; 59025; 59050; 59400; 85025; 86850; 86900; 86901; 87635; C9803; G0378; G0379; J2590

== ENCOUNTER 2023-01-26 08:15 | Outpatient (RCR) | payer OTHER, SELFPAY ==
--- NOTE | 2022-05-26 18:29 | PT.OIE ---
Current Diagnoses Separation of muscle (nontraumatic), other site (05/26/22) Past Medical History (Last Updated 04/03/22 @ 09:26 by Gloria Blackman MD) Abnormal Pap smear of cervix (~2017) Acne Anemia affecting first (~2019) Anxiety (~2014) Diastasis recti (~01/2020) Hayfever (~1997) Irregular heartbeat Palpitations (~01/2021) anxiety (~07/2020) Umbilical hernia (~12/2019) UTI (urinary tract infection) Vaginal delivery (~06/29/20) Past Surgical History (Last Reviewed 01/10/21 @ 16:07 by Sushant Jones MD) Anesthesia History of hernia surgery (~1997) [place] teeth extracted Visit Care Team Role Provider Type Sushant Jones MD Family Provider Physician Primary Care Provider Specialty: Family Practice Address: [address] [place] [address] Email: [email or web address] Gloria Blackman MD Attending Provider Physician Referring Provider Specialty: POINTER HELPER Address: [address] [place] [address] Email: [email or web address] Physical Therapy Initial Evaluation PT-OP-A Visit Information Start: 05/23/22 17:25 Freq: Status: Active Protocol: Document 05/26/22 14:42 LRN (Rec: 05/26/22 18:23 LRN [id number]) Out-Patient Physical Therapy Visit Information Visit Information Visit Type Initial Evaluation Visit Start Time 14:42 Visit Stop Time 15:35 Total Visit Minutes 53 Visit Number 1 Evaluation Information Evaluation Date 05/26/22 Precautions Precautions Umbilical hernia, hx of inguinal hernia repairs bilateral 1997 (age 8) PT-OP-B Current Condition Start: 05/23/22 17:25 Freq: Status: Active Protocol: Document 05/26/22 14:42 LRN (Rec: 05/26/22 18:23 LRN [id number]) Current Condition History of Current Condition Onset Date 03/06/22 Current Complaints Concern Diastasis Rectus worsening, umbilical hernia pain, R MB>LB pain. History of Current Condition States after the 1st baby had coning of abdomen, and with 2nd baby has had more coning. Baby was 10#20oz, and his shoulder caught with childbearing and had to manipulate baby inside to get baby delivered. Baby in distress with cord around neck . Since childbirth, the pt is having core instability with abdominal weakness. She has had numbness in the R mid/low back that appears situational in nature, frequently, when getting up/down from sitting and with movement. She is experiencing a bolt of numbness/tingling in the R mid >low back that goes away within a few seconds. Prior Treatments and Tests None Developmental History Developmental History 2, Parity 2. Births on 03/06/22 and 06/29/20. Children ages 23 months and 2. 5 months old. No dx of DR with 1st baby. Generalized LBP Treatment Goals Patient/Caregiver Goals Find out the severity of her DR. Pt education on protecting DR/umbilical hernia. Resolution of R back tingling/ numbness with positional changes (ex-sit<>stand and getting out of bed) and with lifting. Prior Functional Status Baseline Function- ADL's Independent Baseline Function- Mobility Independent Baseline Function- Recreation/Hobbies Exercises: Boxing, swimming weekly, and video cardio workouts daily. Current Functional Impairments (Reported) Functional Limitations- ADL's Not exercising. Personal Factors Other Personal Factors That May Effect Pt is mother of a 23 month yr Therapy/Recovery old and 2.5 month old. She is on maternity leave until 09/04/22. 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 PT-OP-C Subjective Start: 05/23/22 17:25 Freq: Status: Active Protocol: Document 05/26/22 14:42 LRN (Rec: 05/26/22 18:23 LRN [id number]) OP-PT Pain Assessment Pain Assessment Grid Paper Pain Assessment Grid Completed Yes Location Lower thoracic>Upper lumbar region Pain Location Details Mid back Intensity 3 Scale Used Numeric (0 - 10) Description Tingling Frequency Intermittent Pain Duration 1-2 seconds Pain Aggravating Factors Changing Position Lower Abdomen Pain Location Details Umbilicus Intensity 0 Scale Used Numeric (0 - 10) Description Tender Description- Other Hot. Frequency Intermittent Abdomen Pain Location Details R mid upper quad, L umbilicus upper Quad, Intensity 0 Scale Used Numeric (0 - 10) Description Tender Description- Other Feels like organs ar moving around. Frequency Intermittent PT-OP-F Manual Assessment Start: 05/23/22 17:25 Freq: Status: Active Protocol: Document 05/26/22 14:42 LRN (Rec: 05/26/22 18:23 LR [id number]) Manual Assessments Soft Tissue Assessment Soft Tissue Mobility Assessment Pubic symphysis increased separation at caudal half of joint. Finger widths: 3 Above umbilicus Shallow 2. 25 finger widths 2 Above umbilicus shallow 2. 5 finger widths 1 Above umbilicus 2.5 finger widths 1 Below umbilicus 3.0 finger widths 2 Below umbilicus 2.5 finger widths 3 Below umbilicus shallow 2. 5 finger widths 4 Below umbilicus shallow 2. 5 finger widths 5 Below umbilicus shallow 2. 5 finger widths PT-OP-J Posture/Palpation/Skin Start: 05/26/22 18:23 Freq: Status: Active Protocol: Document 05/26/22 14:42 LRN (Rec: 05/26/22 18:27 LR [id number]) Posture Evaluation Position Standing Head/C-Spine Posture Forward Head T-Spine Posture Flattened L-Spine Posture Increased Lordosis Shoulder Posture (L) Rounded,(R) Rounded,(L) Forward,(R) Forward,(L) Elevated Pelvis Posture Anteriorly Tilted,(L) Iliac Crest Inferior,(R) PSIS Posterior,(L) PSIS Inferior Weight Distribution Weight Shifted Right PT-OP-K Range of Motion Start: 05/23/22 17:25 Freq: Status: Active Protocol: Document 05/26/22 14:42 LRN (Rec: 05/26/22 18:23 LR [id number]) Lumbar Spine Range of Motion Lumbar Spine Active Degrees Testing Position Standing Flexion 85 Extension 15 Rotation Left 20 Rotation Right 25 Lateral Flexion Left 10 Lateral Flexion Right 15 Comments FB 85 with 38 deg's hip flexion BB 5 with 15 deg's hip extension (sacral position to start is with 20 deg's flexion ) Hip Goniometric Range of Motion Hip Right Passive Testing Position Supine Internal Rotation 60 External Rotation 75 Left Passive Internal Rotation 45 External Rotation 75 PT-OP-M Strength Start: 05/23/22 17:25 Freq: Status: Active Protocol: Document 05/26/22 14:42 LRN (Rec: 05/26/22 18:23 LRN [id number]) Trunk Strength Trunk Manual Muscle Testing Core Stabilization Pt is not able to tolerate resistance of leg lifting due to onset of LE ms spasms. Obvious doming of abdomen is present. Hip Strength Hip Manual Muscle Testing Right Flexion (L2) 3- Fair- Extension (S1) 5 Normal Abduction 5 Normal Adduction 2+ Poor+ External Rotation 3- Fair- Internal Rotation 3+ Fair+ Comments Ms cramp in Quads with leg lift Left Flexion (L2) 3- Fair- Extension (S1) 4 Good External Rotation 3- Fair- Internal Rotation 3+ Fair+ Comments Ms cramp in Quads with leg lift PT-OP-Q Treatments Start: 05/23/22 17:25 Freq: Status: Active Protocol: Document 05/26/22 14:42 LRN (Rec: 05/26/22 18:23 [facility] [id number]) Therapeutic Exercises Supine Exercises TA tightening Supine Exercise Name TA tightening and with head lift Reps/Minutes 2' Comments Pt is able to perform a proper TA but not able to hold with a head lift. Therapeutic Activity Therapeutic Activity Sit<>Supine training Name Transfer training with sheet to protect DR Reps/Minutes 3' Comments Pt needed phys and v cuing to perform correctly. Self-Care/Home Management Treatment Education Patient Education Body Mechanics,Home Exercise Program Other Education Discussed results of evaluation, DR implications, specifics of plan of care, and goals. Activities Self-Care/Home Management Activities Educated pt in sit<>supine transfer using a sheet for protection of her DR. I/S pt to perform TA with positional changes and throughout her day. PT-OP-T Assessment and Plan Start: 05/23/22 17:25 Freq: Status: Active Protocol: Document 05/26/22 14:42 LRN (Rec: 05/26/22 18:23 [facility] [id number]) Physical Therapy Assessment Rehab Potential Rehabilitation Potential Excellent Evaluation Complexity Number of Personal Factors/Comorbidities 1-2 Number of Body Systems Impaired 4 or More Clinical Presentation at Evaluation Evolving Impairments Impairments Activity Tolerance,Pain, Posture,ROM,Soft Tissue Mobility,Strength,Transfers Goals Four Impairment Poor posture with umbilical hernia Short Term Goal (STG) Pt will be educated in proper standing/sitting posture. STG Duration 06/06/22 Intermediate Goal (LTG) Pt will be able to perform a head lift in supine without doming of abdomen and decreased discomfort at umbilicus. LTG Duration 08/24/22 Three Impairment R mid to low back tingling/ numbness Impairment Pt has R tingling/numbness with positional changes, pain rated 3/10. Short Term Goal (STG) Pt will demonstrate improved posture and awareness in sitting and with changes of positions. STG Duration 07/12/22 Derrick Follower Goal (LTG) Resolution of R back tingling/ numbness with positional changes (ex-sit<>stand and getting out of bed) and with lifting. 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 25 finger widths 2 Above umbilicus shallow 2. 5 finger widths 1 Above umbilicus 2.5 finger widths 1 Below umbilicus 3.0 finger widths 2 Below umbilicus 2.5 finger widths 3 Below umbilicus shallow 2. 5 finger widths 4 Below umbilicus shallow 2. 5 finger widths 5 Below umbilicus shallow 2. 5 finger widths Pubic symphysis increased separation at caudal half of joint Short Term Goal (STG) Pt will be educated in the severity and education of her DR/umbilical hernia. STG Duration 06/06/22 Intermediate Goal (LTG) Pt will be educated in self K- tape and a TA strengthening program to minimize her DR/ symphysis pubic separation, and pelvic stabilization for symphysis pubic dysfunction. LTG Duration 08/24/22 One Impairment Lacks appropriate self care HEP Impairment Poor body mechanics with transfer sit<>supine, sit<> stand. Short Term Goal (STG) Pt will be educated in proper body mechanics appropriate for post- DR. STG Duration 06/06/22 Intermediate Goal (LTG) Pt will be educated in a self care HEP to include core/ pelvic/hip strengthening. LTG Duration 08/24/22 Assessment Summary Assessment Pt is 2.5 months post- with a 2.5 and less finger width diastasis rectus extending from sternum to pubic bone. She is currently and is obviously experiencing hormonal changes to her soft tissue. 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 Her core and hip strength is decreased due to DR and pubic symphysis discomfort and dysfunction. The pt will benefit from skilled physical therapy to achieve the above stated goals . Rehab time might be extended due to her and having a busy lifestyle at home with a 23 month old child and 2.5 month old . Physical Therapy Plan Frequency and Duration Frequency of Treatment 2x/Week Plan of Care Start Date 05/26/22 Plan of Care End Date 08/24/22 Therapeutic Interventions Therapeutic Interventions Home Exercise Program,Joint Mobilizations,Manual Therapy, Neuromuscular Re-education, Patient/Caregiver Education, Self-Care/Home Management,Soft Tissue Mobilization,Taping, Therapeutic Activities, Therapeutic Exercises Modalities Cold Pack/Ice Massage,Electric Stimulation,Hot Packs Next Visit Focus/Plan Next Note Type Treatment Note Next Visit Plan Check hip AB PROM. Pt education: proper body mechanics appropriate for post - DR & ADL's. Pt will be educated in proper standing/sitting posture and transfers and bed mobiity. Pt will be educated in self K- tape for DR. Pt education in bowel management. Manual for DR, umbilical hernia, pelvic balancing, HEP: Deep breathing, self K- tape and a TA strengthening program, and pelvic stabilization for symphysis pubic dysfunction, & hip strengthening.
--- NOTE | 2022-05-26 18:29 | PT.OPPOC ---
Physical, Occupational & Speech Therapy At [facility] Current Diagnoses Separation of muscle (nontraumatic), other site (05/26/22) Visit Care Team Role Provider Type Sushant Jones MD Family Provider Physician Primary Care Provider Specialty: Family Practice Address: [address] [place] [address] Email: [email or web address] Gloria Blackman MD Attending Provider Physician Referring Provider Specialty: OREMAN Address: [address] [place] [address], [id number] Email: [email or web address] Plan Of Care PT-OP-T Assessment and Plan Start: 05/23/22 17:25 Freq: Status: Active Protocol: Document 05/26/22 14:42 LRN (Rec: 05/26/22 18:23 LRN [id number]) Physical Therapy Assessment Rehab Potential Rehabilitation Potential Excellent Evaluation Complexity Number of Personal Factors/Comorbidities 1-2 Number of Body Systems Impaired 4 or More Clinical Presentation at Evaluation Evolving Impairments Impairments Activity Tolerance,Pain, Posture,ROM,Soft Tissue Mobility,Strength,Transfers Goals Four Impairment Poor posture with umbilical hernia Short Term Goal (STG) Pt will be educated in proper standing/sitting posture. STG Duration 06/06/22 Shelter Goal (LTG) Pt will be able to perform a head lift in supine without doming of abdomen and decreased discomfort at umbilicus. LTG Duration 08/24/22 Three Impairment R mid to low back tingling/ numbness Impairment Pt has R tingling/numbness with positional changes, pain rated 3/10. Short Term Goal (STG) Pt will demonstrate improved posture and awareness in sitting and with changes of positions. STG Duration 07/12/22 Sales Forecast Analyst Goal (LTG) Resolution of R back tingling/ numbness with positional changes (ex-sit<>stand and getting out of bed) and with lifting. 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 25 finger widths 2 Above umbilicus shallow 2. 5 finger widths 1 Above umbilicus 2.5 finger widths 1 Below umbilicus 3.0 finger widths 2 Below umbilicus 2.5 finger widths 3 Below umbilicus shallow 2. 5 finger widths 4 Below umbilicus shallow 2. 5 finger widths 5 Below umbilicus shallow 2. 5 finger widths Pubic symphysis increased separation at caudal half of joint Short Term Goal (STG) Pt will be educated in the severity and education of her DR/umbilical hernia. STG Duration 06/06/22 Sales Forecast Analyst Goal (LTG) Pt will be educated in self K- tape and a TA strengthening program to minimize her DR/ symphysis pubic separation, and pelvic stabilization for symphysis pubic dysfunction. LTG Duration 08/24/22 One Impairment Lacks appropriate self care HEP Impairment Poor body mechanics with transfer sit<>supine, sit<> stand. Short Term Goal (STG) Pt will be educated in proper body mechanics appropriate for post- DR. STG Duration 06/06/22 Shelter Goal (LTG) Pt will be educated in a self care HEP to include core/ pelvic/hip strengthening. LTG Duration 08/24/22 Assessment Summary Assessment Pt is 2.5 months post- with a 2.5 and less finger width diastasis rectus extending from sternum to pubic bone. She is currently and is obviously experiencing hormonal changes to her soft tissue. 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 Her core and hip strength is decreased due to DR and pubic symphysis discomfort and dysfunction. The pt will benefit from skilled physical therapy to achieve the above stated goals . Rehab time might be extended due to her and having a busy lifestyle at home with a 23 month old child and 2.5 month old infant. Physical Therapy Plan Frequency and Duration Frequency of Treatment 2x/Week Plan of Care Start Date 05/26/22 Plan of Care End Date 08/24/22 Therapeutic Interventions Therapeutic Interventions Home Exercise Program,Joint Mobilizations,Manual Therapy, Neuromuscular Re-education, Patient/Caregiver Education, Self-Care/Home Management,Soft Tissue Mobilization,Taping, Therapeutic Activities, Therapeutic Exercises Modalities Cold Pack/Ice Massage,Electric Stimulation,Hot Packs Next Visit Focus/Plan Next Note Type Treatment Note Next Visit Plan Check hip AB PROM. Pt education: proper body mechanics appropriate for post - DR & ADL's. Pt will be educated in proper standing/sitting posture and transfers and bed mobiity. Pt will be educated in self K- tape for DR. Pt education in bowel management. Manual for DR, umbilical hernia, pelvic balancing, HEP: Deep breathing, self K- tape and a TA strengthening program, and pelvic stabilization for symphysis pubic dysfunction, & hip strengthening. Plan of Care Dates Plan of Care Start Date 05/26/22 Plan of Care End Date 08/24/22 Electronically Signed by: Jessi Villatoro, PT 05/26/22 3325 If you are in agreement with this Plan of Care, please return a signed and dated copy. I have reviewed this Plan of Care and certify that the skilled therapy services above are required to meet the patient?s needs. Physician Signature Date Printed Name and Credentials Clinical Instructor Signature Printed Name and Credentials
--- NOTE | 2022-06-10 17:24 | PT.OTN ---
Current Diagnoses Separation of muscle (nontraumatic), other site (06/10/22) Physical Therapy Treatment Note PT-OP-A Visit Information Start: 05/23/22 17:25 Freq: Status: Active Protocol: Document 06/10/22 08:17 LRN (Rec: 06/10/22 09:06 LRN [id number]) Out-Patient Physical Therapy Visit Information Visit Information Visit Type Treatment Note Visit Start Time 08:17 Visit Stop Time 08:57 Total Visit Minutes 40 Visit Number 2 Evaluation Information Evaluation Date 05/26/22 Precautions Precautions Umbilical hernia, hx of inguinal hernia repairs bilateral 1997 (age 8) PT-OP-B Current Condition Start: 05/23/22 17:25 Freq: Status: Active Protocol: Document 05/26/22 14:42 LRN (Rec: 05/26/22 18:23 LRN [id number]) Current Condition History of Current Condition Onset Date 03/06/22 Current Complaints Concern Diastasis Rectus worsening, umbilical hernia pain, R MB>LB pain. History of Current Condition States after the 1st baby had coning of abdomen, and with 2nd baby has had more coning. Baby was 10#20oz, and his shoulder caught with childbearing and had to manipulate baby inside to get baby delivered. Baby in distress with cord around neck . Since childbirth, the pt is having core instability with abdominal weakness. She has had numbness in the R mid/low back that appears situational in nature, frequently, when getting up/down from sitting and with movement. She is experiencing a bolt of numbness/tingling in the R mid >low back that goes away within a few seconds. Prior Treatments and Tests None Developmental History Developmental History 2, Parity 2. Births on 03/06/22 and 06/29/20. Children ages 23 months and 2. 5 months old. No dx of DR with 1st baby. Generalized LBP Treatment Goals Patient/Caregiver Goals Find out the severity of her DR. Pt education on protecting DR/umbilical hernia. Resolution of R back tingling/ numbness with positional changes (ex-sit<>stand and getting out of bed) and with lifting. Prior Functional Status Baseline Function- ADL's Independent Baseline Function- Mobility Independent Baseline Function- Recreation/Hobbies Exercises: Boxing, swimming weekly, and video cardio workouts daily. Current Functional Impairments (Reported) Functional Limitations- ADL's Not exercising. Personal Factors Other Personal Factors That May Effect Pt is mother of a 23 month yr Therapy/Recovery old and 2.5 month old. She is on maternity leave until 09/04/22. 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 PT-OP-C Subjective Start: 05/23/22 17:25 Freq: Status: Active Protocol: Document 06/10/22 08:17 LRN (Rec: 06/10/22 09:06 LRN [id number]) OP-PT Subjective Patient Comments Patient Comments Wgt is 150#. Didn't track fluids with bladder diary. PT-OP-F Manual Assessment Start: 05/23/22 17:25 Freq: Status: Active Protocol: Document 05/26/22 14:42 LRN (Rec: 05/26/22 18:23 LRN [id number]) Manual Assessments Soft Tissue Assessment Soft Tissue Mobility Assessment Pubic symphysis increased separation at caudal half of joint. Finger widths: 3 Above umbilicus Shallow 2. 25 finger widths 2 Above umbilicus shallow 2. 5 finger widths 1 Above umbilicus 2.5 finger widths 1 Below umbilicus 3.0 finger widths 2 Below umbilicus 2.5 finger widths 3 Below umbilicus shallow 2. 5 finger widths 4 Below umbilicus shallow 2. 5 finger widths 5 Below umbilicus shallow 2. 5 finger widths PT-OP-J Posture/Palpation/Skin Start: 05/26/22 18:23 Freq: Status: Active Protocol: Document 05/26/22 14:42 LRN (Rec: 05/26/22 18:27 LRN [id number]) Posture Evaluation Position Standing Head/C-Spine Posture Forward Head T-Spine Posture Flattened L-Spine Posture Increased Lordosis Shoulder Posture (L) Rounded,(R) Rounded,(L) Forward,(R) Forward,(L) Elevated Pelvis Posture Anteriorly Tilted,(L) Iliac Crest Inferior,(R) PSIS Posterior,(L) PSIS Inferior Weight Distribution Weight Shifted Right PT-OP-K Range of Motion Start: 05/23/22 17:25 Freq: Status: Active Protocol: Document 05/26/22 14:42 LRN (Rec: 05/26/22 18:23 LRN [id number]) Lumbar Spine Range of Motion Lumbar Spine Active Degrees Testing Position Standing Flexion 85 Extension 15 Rotation Left 20 Rotation Right 25 Lateral Flexion Left 10 Lateral Flexion Right 15 Comments FB 85 with 38 deg's hip flexion BB 5 with 15 deg's hip extension (sacral position to start is with 20 deg's flexion ) Hip Goniometric Range of Motion Hip Right Passive Testing Position Supine Internal Rotation 60 External Rotation 75 Left Passive Internal Rotation 45 External Rotation 75 PT-OP-M Strength Start: 05/23/22 17:25 Freq: Status: Active Protocol: Document 05/26/22 14:42 LRN (Rec: 05/26/22 18:23 LRN [id number]) Trunk Strength Trunk Manual Muscle Testing Core Stabilization Pt is not able to tolerate resistance of leg lifting due to onset of LE ms spasms. Obvious doming of abdomen is present. Hip Strength Hip Manual Muscle Testing Right Flexion (L2) 3- Fair- Extension (S1) 5 Normal Abduction 5 Normal Adduction 2+ Poor+ External Rotation 3- Fair- Internal Rotation 3+ Fair+ Comments Ms cramp in Quads with leg lift Left Flexion (L2) 3- Fair- Extension (S1) 4 Good External Rotation 3- Fair- Internal Rotation 3+ Fair+ Comments Ms cramp in Quads with leg lift PT-OP-Q Treatments Start: 05/23/22 17:25 Freq: Status: Active Protocol: Document 06/10/22 08:17 LRN (Rec: 06/10/22 09:06 LRN [id number]) Therapeutic Exercises Supine Exercises ILU massage Supine Exercise Name ILU massage w/discussion Reps/Minutes 3' TA tightening Supine Exercise Name TA tightening Side bilateral Reps/Minutes 5' Comments Pt needed cuing to exhale as tightening to engage lower TA Sidelying Exercises TA tightening Sidelying Exercise Name TA tightening Side bilateral Reps/Minutes 6' Comments Cuing to exhale on tightening to engage lower TA Sitting Exercises Posture training Sitting Exercise Name Posture training w/review of proper posturing Reps/Minutes 5' Comments Cuing to low back and upper chest. Standing Exercises Posture training Standing Exercise Name Proper posture training w/ review of handout and discussion Reps/Minutes 3' Self-Care/Home Management Treatment Education Patient Education Posture Other Education Pt education in proper Transfer training for protecting DR with sit<> suopine using towel for support. Discussed & educated pt in bowel management. Activities Self-Care/Home Management Activities Issued & reviewed handouts for proper sitting posture, bowel massage & bowel program. PT-OP-T Assessment and Plan Start: 05/23/22 17:25 Freq: Status: Active Protocol: Document 06/10/22 08:17 LRN (Rec: 06/10/22 09:06 LRN [id number]) Physical Therapy Assessment Goals Four Impairment Poor posture with umbilical hernia Short Term Goal (STG) Pt will be educated in proper standing/sitting posture. STG Duration 06/06/22 (06/06/22: MET GOAL) Care Home Goal (LTG) Pt will be able to perform a head lift in supine without doming of abdomen and decreased discomfort at umbilicus. LTG Duration 08/24/22 Three Impairment R mid to low back tingling/ numbness Impairment Pt has R tingling/numbness with positional changes, pain rated 3/10. Short Term Goal (STG) Pt will demonstrate improved posture and awareness in sitting and with changes of positions. STG Duration 07/12/22 Care Home Goal (LTG) Resolution of R back tingling/ numbness with positional changes (ex-sit<>stand and getting out of bed) and with lifting. 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 25 finger widths 2 Above umbilicus shallow 2. 5 finger widths 1 Above umbilicus 2.5 finger widths 1 Below umbilicus 3.0 finger widths 2 Below umbilicus 2.5 finger widths 3 Below umbilicus shallow 2. 5 finger widths 4 Below umbilicus shallow 2. 5 finger widths 5 Below umbilicus shallow 2. 5 finger widths Pubic symphysis increased separation at caudal half of joint Short Term Goal (STG) Pt will be educated in the severity and education of her DR/umbilical hernia. STG Duration 06/06/22 Care Home Goal (LTG) Pt will be educated in self K- tape and a TA strengthening program to minimize her DR/ symphysis pubic separation, and pelvic stabilization for symphysis pubic dysfunction. LTG Duration 08/24/22 One Impairment Lacks appropriate self care HEP Impairment Poor body mechanics with transfer sit<>supine, sit<> stand. Short Term Goal (STG) Pt will be educated in proper body mechanics appropriate for post- DRKarl (06/06/22: Pt educated in sit<> sup transfer with use of support to abdomen/DR). STG Duration 06/06/22 (06/06/22: Partially met goal) Care Home Goal (LTG) Pt will be educated in a self care HEP to include core/ pelvic/hip strengthening. (06/06/22: Pt I/S in TA tightening in sup, and sidelie ). LTG Duration 08/24/22 (06/06/22: Progressed ) Assessment Summary Assessment Pt receptive to education on posture, bowel program and bowel massage. She is aware of bowel massage as she was taught to do for baby. Pt appears to have poor posture sitting habits, she needs cuing for proper posturing in sitting. Physical Therapy Plan Frequency and Duration Frequency of Treatment 2x/Week Plan of Care Start Date 05/26/22 Plan of Care End Date 08/24/22 Next Visit Focus/Plan Next Note Type Treatment Note Next Visit Plan Check hip AB PROM. Pt education: bed mobility (DR protection). Pt will be educated in proper body mechanics appropriate for post- DR & ADL's. Pt will be educated in self K- tape for DR. Manual for DR (QL rotators), umbilical hernia, pelvic balancing, HEP: Deep breathing, self K- tape and a TA strengthening program, and pelvic stabilization for symphysis pubic dysfunction, & hip strengthening.
--- NOTE | 2022-06-24 16:01 | PT.OTN ---
Current Diagnoses Separation of muscle (nontraumatic), other site (06/24/22) Physical Therapy Treatment Note PT-OP-A Visit Information Start: 05/23/22 17:25 Freq: Status: Active Protocol: Document 06/24/22 08:20 LRN (Rec: 06/24/22 09:03 LRN [id number]) Out-Patient Physical Therapy Visit Information Visit Information Visit Type Treatment Note Visit Start Time 08:20 Visit Stop Time 09:00 Total Visit Minutes 40 Visit Number 3 Evaluation Information Evaluation Date 05/26/22 Precautions Precautions Umbilical hernia, hx of inguinal hernia repairs bilateral 1997 (age 8) PT-OP-B Current Condition Start: 05/23/22 17:25 Freq: Status: Active Protocol: Document 05/26/22 14:42 LRN (Rec: 05/26/22 18:23 LRN [id number]) Current Condition History of Current Condition Onset Date 03/06/22 Current Complaints Concern Diastasis Rectus worsening, umbilical hernia pain, R MB>LB pain. History of Current Condition States after the 1st baby had coning of abdomen, and with 2nd baby has had more coning. Baby was 10#20oz, and his shoulder caught with childbearing and had to manipulate baby inside to get baby delivered. Baby in distress with cord around neck . Since childbirth, the pt is having core instability with abdominal weakness. She has had numbness in the R mid/low back that appears situational in nature, frequently, when getting up/down from sitting and with movement. She is experiencing a bolt of numbness/tingling in the R mid >low back that goes away within a few seconds. Prior Treatments and Tests None Developmental History Developmental History 2, Parity 2. Births on 03/06/[birth year] and 06/29/20. Children ages 23 months and 2. 5 months old. No dx of DR with 1st baby. Generalized LBP Treatment Goals Patient/Caregiver Goals Find out the severity of her DR. Pt education on protecting DR/umbilical hernia. Resolution of R back tingling/ numbness with positional changes (ex-sit<>stand and getting out of bed) and with lifting. Prior Functional Status Baseline Function- ADL's Independent Baseline Function- Mobility Independent Baseline Function- Recreation/Hobbies Exercises: Boxing, swimming weekly, and video cardio workouts daily. Current Functional Impairments (Reported) Functional Limitations- ADL's Not exercising. Personal Factors Other Personal Factors That May Effect Pt is mother of a 23 month yr Therapy/Recovery old and 2.5 month old. She is on maternity leave until 09/04/22. 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 PT-OP-C Subjective Start: 05/23/22 17:25 Freq: Status: Active Protocol: Document 06/24/22 08:20 LRN (Rec: 06/24/22 09:03 LRN [id number]) OP-PT Subjective Patient Comments Patient Comments Did bladder diary. Having less constipation due to more fiber intake. PT-OP-F Manual Assessment Start: 05/23/22 17:25 Freq: Status: Active Protocol: Document 05/26/22 14:42 LRN (Rec: 05/26/22 18:23 LRN [id number]) Manual Assessments Soft Tissue Assessment Soft Tissue Mobility Assessment Pubic symphysis increased separation at caudal half of joint. Finger widths: 3 Above umbilicus Shallow 2. 25 finger widths 2 Above umbilicus shallow 2. 5 finger widths 1 Above umbilicus 2.5 finger widths 1 Below umbilicus 3.0 finger widths 2 Below umbilicus 2.5 finger widths 3 Below umbilicus shallow 2. 5 finger widths 4 Below umbilicus shallow 2. 5 finger widths 5 Below umbilicus shallow 2. 5 finger widths PT-OP-J Posture/Palpation/Skin Start: 05/26/22 18:23 Freq: Status: Active Protocol: Document 05/26/22 14:42 LRN (Rec: 05/26/22 18:27 LRN [id number]) Posture Evaluation Position Standing Head/C-Spine Posture Forward Head T-Spine Posture Flattened L-Spine Posture Increased Lordosis Shoulder Posture (L) Rounded,(R) Rounded,(L) Forward,(R) Forward,(L) Elevated Pelvis Posture Anteriorly Tilted,(L) Iliac Crest Inferior,(R) PSIS Posterior,(L) PSIS Inferior Weight Distribution Weight Shifted Right PT-OP-K Range of Motion Start: 05/23/22 17:25 Freq: Status: Active Protocol: Document 06/24/22 08:20 LRN (Rec: 06/24/22 09:03 LRN [id number]) Hip Goniometric Range of Motion Hip Right Passive Testing Position Supine Abduction 40 Internal Rotation 60 External Rotation 75 Left Passive Testing Position Supine Abduction 33 Internal Rotation 45 External Rotation 75 PT-OP-M Strength Start: 05/23/22 17:25 Freq: Status: Active Protocol: Document 05/26/22 14:42 LRN (Rec: 05/26/22 18:23 LRN [id number]) Trunk Strength Trunk Manual Muscle Testing Core Stabilization Pt is not able to tolerate resistance of leg lifting due to onset of LE ms spasms. Obvious doming of abdomen is present. Hip Strength Hip Manual Muscle Testing Right Flexion (L2) 3- Fair- Extension (S1) 5 Normal Abduction 5 Normal Adduction 2+ Poor+ External Rotation 3- Fair- Internal Rotation 3+ Fair+ Comments Ms cramp in Quads with leg lift Left Flexion (L2) 3- Fair- Extension (S1) 4 Good External Rotation 3- Fair- Internal Rotation 3+ Fair+ Comments Ms cramp in Quads with leg lift PT-OP-Q Treatments Start: 05/23/22 17:25 Freq: Status: Active Protocol: Document 06/24/22 08:20 LRN (Rec: 06/24/22 09:03 LRN [id number]) Therapeutic Exercises Supine Exercises Hip AB stretch Supine Exercise Name Passive Stretch into Hip AB Side bilateral Reps/Minutes 2' Sidelying Exercises TA tightening Sidelying Exercise Name TA tightening Side bilateral Reps/Minutes 10 SH x 10 each Comments Cuing to exhale on tightening to engage lower TA Manual Therapy Treatment Taping K-tape abdomen Body Location ABdomen Treatment Focus DR support Type of Tape Kinesio Tape Skin Inspection Good Comments Pt educated in safe and proper removal of K-tape within 5 days. Self-Care/Home Management Treatment Education Patient Education Posture Other Education Discussed bladder/bowel diary and recommended fiber at every meal and to monitor fluid intake, along with different fiber sources to consider. Discussed and educated pt in DR/umbilical hernia relation. Discussed and educated pt in proper sitting. Educated pt at length in proper standing posturing, using negative heel concept to adjust body posture. Educated pt in bed mobility movement, side to side scooting, discussed up/down. Discussed soft tissue changes with and bumpiness of adipose tissue of the abdomen. PT-OP-T Assessment and Plan Start: 05/23/22 17:25 Freq: Status: Active Protocol: Document 06/24/22 08:20 LRN (Rec: 06/24/22 09:03 [facility] [id number]) Physical Therapy Assessment Goals Four Impairment Poor posture with umbilical hernia Short Term Goal (STG) Pt will be educated in proper standing/sitting posture. 06/24/22: Educated pt in proper sitting and standing posture. Used lift under toes for standing correction. STG Duration 06/06/22 (06/06/22: MET GOAL) Caregiver Services Home Goal (LTG) Pt will be able to perform a head lift in supine without doming of abdomen and decreased discomfort at umbilicus. LTG Duration 08/24/22 Three Impairment R mid to low back tingling/ numbness Impairment Pt has R mid to LB tingling/ numbness with positional changes, pain rated 3/10. Short Term Goal (STG) Pt will demonstrate improved posture and awareness in sitting and with changes of positions. STG Duration 07/12/22 Caregiver Services Home Goal (LTG) Resolution of R back tingling/ numbness with positional changes (ex-sit<>stand and getting out of bed) and with lifting. 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 25 finger widths 2 Above umbilicus shallow 2. 5 finger widths 1 Above umbilicus 2.5 finger widths 1 Below umbilicus 3.0 finger widths 2 Below umbilicus 2.5 finger widths 3 Below umbilicus shallow 2. 5 finger widths 4 Below umbilicus shallow 2. 5 finger widths 5 Below umbilicus shallow 2. 5 finger widths Pubic symphysis increased separation at caudal half of joint Short Term Goal (STG) Pt will be educated in the severity and education of her DR/umbilical hernia. 06/24/22: DR/Umbilical Hernia education. STG Duration 06/06/22 (06/24/22: Partially met goal) Prison Goal (LTG) Pt will be educated in self K- tape and a TA strengthening program to minimize her DR/ symphysis pubic separation, and pelvic stabilization for symphysis pubic dysfunction. 06/24/22: Pt introduced to K- taping. LTG Duration 08/24/22 (06/24/22: Progressed) One Impairment Lacks appropriate self care HEP Impairment Poor body mechanics with transfer sit<>supine, sit<> stand. Short Term Goal (STG) Pt will be educated in proper body mechanics appropriate for post- DR. (06/06/22: Pt educated in sit<> sup transfer with use of support to abdomen/DR). STG Duration 06/06/22 (06/06/22: Partially met goal) Prison Goal (LTG) Pt will be educated in a self care HEP to include core/ pelvic/hip strengthening. (06/06/22: Pt I/S in TA tightening in sup, and sidelie ). LTG Duration 08/24/22 (06/06/22: Progressed ) Assessment Summary Assessment Pt is 2.5 months post- with a 2.5 and less finger width diastasis rectus extending from sternum to pubic bone and pubic symphysis dysfunction along with her DR . Her BM's are becoming more regular and consistent in bowel type with an increase in dietary fiber. Pt demonstrates improved control of her abdomen with ability to contract her TA in supine/ sidelie, and less in standing. L hip AB & IR mobility is decreased. Pt has poor postural awareness; therefore further training is needed. She does not have K-tape at home but may be interested if beneficial to keeping TA tight for home use. Pt more aware of protective DR transfers after training. Her sacrum is in R rotation. Physical Therapy Plan Frequency and Duration Frequency of Treatment 2x/Week Plan of Care Start Date 05/26/22 Plan of Care End Date 08/24/22 Next Visit Focus/Plan Next Note Type Treatment Note Next Visit Plan Pt will be educated in proper body mechanics appropriate for post- DR (sit<>stand/ breathing coordination) & ADL' s. Educate pt in norm for DR, and prevention of abd doming with head lift, and self K-tape for DR. Manual for DR (QL rotators), umbilical hernia, pelvic balancing. Core & hip strengthening. HEP: Deep breathing, self K- tape and a TA strengthening program, Hip AB & IR stretches , and pelvic stabilization for symphysis pubic dysfunction, & hip strengthening.
--- NOTE | 2022-07-03 17:00 | PT.OTN ---
Current Diagnoses Separation of muscle (nontraumatic), other site (07/03/22) Physical Therapy Treatment Note PT-OP-A Visit Information Start: 05/23/22 17:25 Freq: Status: Active Protocol: Document 07/03/22 08:08 LRN (Rec: 07/03/22 09:03 LRN [id number]) Out-Patient Physical Therapy Visit Information Visit Information Visit Type Treatment Note Visit Start Time 08:08 Visit Stop Time 08:54 Total Visit Minutes 46 Visit Number 4 Evaluation Information Evaluation Date 05/26/22 Precautions Precautions Umbilical hernia, hx of inguinal hernia repairs bilateral 1997 (age 8) PT-OP-B Current Condition Start: 05/23/22 17:25 Freq: Status: Active Protocol: Document 05/26/22 14:42 LRN (Rec: 05/26/22 18:23 LRN [id number]) Current Condition History of Current Condition Onset Date 03/06/22 Current Complaints Concern Diastasis Rectus worsening, umbilical hernia pain, R MB>LB pain. History of Current Condition States after the 1st baby had coning of abdomen, and with 2nd baby has had more coning. Baby was 10#20oz, and his shoulder caught with childbearing and had to manipulate baby inside to get baby delivered. Baby in distress with cord around neck . Since childbirth, the pt is having core instability with abdominal weakness. She has had numbness in the R mid/low back that appears situational in nature, frequently, when getting up/down from sitting and with movement. She is experiencing a bolt of numbness/tingling in the R mid >low back that goes away within a few seconds. Prior Treatments and Tests None Developmental History Developmental History 2, Parity 2. Births on 03/06/22 and 06/29/20. Children ages 23 months and 2. 5 months old. No dx of DR with 1st baby. Generalized LBP Treatment Goals Patient/Caregiver Goals Find out the severity of her DR. Pt education on protecting DR/umbilical hernia. Resolution of R back tingling/ numbness with positional changes (ex-sit<>stand and getting out of bed) and with lifting. Prior Functional Status Baseline Function- ADL's Independent Baseline Function- Mobility Independent Baseline Function- Recreation/Hobbies Exercises: Boxing, swimming weekly, and video cardio workouts daily. Current Functional Impairments (Reported) Functional Limitations- ADL's Not exercising. Personal Factors Other Personal Factors That May Effect Pt is mother of a 23 month yr Therapy/Recovery old and 2.5 month old. She is on maternity leave until 09/04/22. 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 PT-OP-C Subjective Start: 05/23/22 17:25 Freq: Status: Active Protocol: Document 07/03/22 08:08 LRN (Rec: 07/03/22 09:03 LRN [id number]) OP-PT Subjective Patient Comments Patient Comments Has 2 small babies and deployed. Was leaning over with baby on chest rubbing toddler 45', when finished, felt dull pain in stomach nad nausea , nesxt morning gradualy got btter. States the K-tape was removed in 5 days and didn't notice any assist with tape. Still has weird nerve sensation sit<> stand. PT-OP-F Manual Assessment Start: 05/23/22 17:25 Freq: Status: Active Protocol: Document 05/26/22 14:42 LRN (Rec: 05/26/22 18:23 LRN [id number]) Manual Assessments Soft Tissue Assessment Soft Tissue Mobility Assessment Pubic symphysis increased separation at caudal half of joint. Finger widths: 3 Above umbilicus Shallow 2. 25 finger widths 2 Above umbilicus shallow 2. 5 finger widths 1 Above umbilicus 2.5 finger widths 1 Below umbilicus 3.0 finger widths 2 Below umbilicus 2.5 finger widths 3 Below umbilicus shallow 2. 5 finger widths 4 Below umbilicus shallow 2. 5 finger widths 5 Below umbilicus shallow 2. 5 finger widths PT-OP-J Posture/Palpation/Skin Start: 05/26/22 18:23 Freq: Status: Active Protocol: Document 05/26/22 14:42 LRN (Rec: 05/26/22 18:27 LRN [id number]) Posture Evaluation Position Standing Head/C-Spine Posture Forward Head T-Spine Posture Flattened L-Spine Posture Increased Lordosis Shoulder Posture (L) Rounded,(R) Rounded,(L) Forward,(R) Forward,(L) Elevated Pelvis Posture Anteriorly Tilted,(L) Iliac Crest Inferior,(R) PSIS Posterior,(L) PSIS Inferior Weight Distribution Weight Shifted Right PT-OP-K Range of Motion Start: 05/23/22 17:25 Freq: Status: Active Protocol: Document 06/24/22 08:20 LRN (Rec: 06/24/22 09:03 LRN [id number]) Hip Goniometric Range of Motion Hip Right Passive Testing Position Supine Abduction 40 Internal Rotation 60 External Rotation 75 Left Passive Testing Position Supine Abduction 33 Internal Rotation 45 External Rotation 75 PT-OP-M Strength Start: 05/23/22 17:25 Freq: Status: Active Protocol: Document 05/26/22 14:42 LRN (Rec: 05/26/22 18:23 LRN [id number]) Trunk Strength Trunk Manual Muscle Testing Core Stabilization Pt is not able to tolerate resistance of leg lifting due to onset of LE ms spasms. Obvious doming of abdomen is present. Hip Strength Hip Manual Muscle Testing Right Flexion (L2) 3- Fair- Extension (S1) 5 Normal Abduction 5 Normal Adduction 2+ Poor+ External Rotation 3- Fair- Internal Rotation 3+ Fair+ Comments Ms cramp in Quads with leg lift Left Flexion (L2) 3- Fair- Extension (S1) 4 Good External Rotation 3- Fair- Internal Rotation 3+ Fair+ Comments Ms cramp in Quads with leg lift PT-OP-Q Treatments Start: 05/23/22 17:25 Freq: Status: Active Protocol: Document 07/03/22 08:08 LRN (Rec: 07/03/22 09:03 LRN [id number]) Therapeutic Exercises Supine Exercises Sit<>Supine Supine Exercise Name Sit<>Supine w/coordinated breathing/TA/PF tightening Reps/Minutes 3' TA tightening Supine Exercise Name TA tightening Side bilateral Reps/Minutes 5' Comments Pt needed cuing to exhale as tightening to engage lower TA Sitting Exercises SIt<>stand Sitting Exercise Name Sit<>stand w/coordinated breathing/TA/PF tightening Side right Reps/Minutes 4' Posture training Sitting Exercise Name Posture training Reps/Minutes 2' Comments Phys & v cuing needed Other Exercises 4pt TA tightening Other Exercise Name 4 pt TA tightening Reps/Minutes 2' Manual Therapy Treatment Soft Tissue Mobilization External/Internal Obliques Body Location Ext/Int Obliques Mobilization Type Strumming Intensity/Depth Moderate Body Position Supine Taping K-tape abdomen Body Location ABdomen 1 vertical, 4 Horiz I- strips Treatment Focus DR support Type of Tape Kinesio Tape Skin Inspection Good Comments Pt educated in safe and proper removal of K-tape within 5 days. Pt in slight trunk flex w/TA tight to apply. Self-Care/Home Management Treatment Education Patient Education Body Mechanics,Home Exercise Program Other Education Discussed posturing difficulties taking care of toddler while wearing her 2.5 yr old, and made suggestions for change in posturing. Discussed shoe wear for supporting posture and arches. Pt will be educated in proper body mechanics appropriate for post- DR and for daily activities. Educated pt in transfer with coordination of breathing/PF/ TA. Activities Self-Care/Home Management Activities HEP: Issued for hands/knees TA tightening strengthening. Handouts issued for: Body mechanics for ADLs. Use of towel for DR management with transfers. PT-OP-T Assessment and Plan Start: 05/23/22 17:25 Freq: Status: Active Protocol: Document 07/03/22 08:08 LRN (Rec: 07/03/22 09:03 LRN [id number]) Physical Therapy Assessment Goals Four Impairment Poor posture with umbilical hernia Short Term Goal (STG) Pt will be educated in proper standing/sitting posture. 06/24/22: Educated pt in proper sitting and standing posture. Used lift under toes for standing correction. STG Duration 06/06/22 (06/06/22: MET GOAL) Bed Laster Goal (LTG) Pt will be able to perform a head lift in supine without doming of abdomen and decreased discomfort at umbilicus. LTG Duration 08/24/22 Three Impairment R mid to low back tingling/ numbness Impairment Pt has R mid to LB tingling/ numbness with positional changes, pain rated 3/10. Short Term Goal (STG) Pt will demonstrate improved posture and awareness in sitting and with changes of positions. (07/03/22: Pt sitting more upright in L/S, demonstrates upper thoracic increased kyphosis) STG Duration 07/12/22 (07/03/22: Improving) Mcfp Goal (LTG) Resolution of R back tingling/ numbness with positional changes (ex-sit<>stand and getting out of bed) and with lifting. 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 25 finger widths 2 Above umbilicus shallow 2. 5 finger widths 1 Above umbilicus 2.5 finger widths 1 Below umbilicus 3.0 finger widths 2 Below umbilicus 2.5 finger widths 3 Below umbilicus shallow 2. 5 finger widths 4 Below umbilicus shallow 2. 5 finger widths 5 Below umbilicus shallow 2. 5 finger widths Pubic symphysis increased separation at caudal half of joint Short Term Goal (STG) Pt will be educated in the severity and education of her DR/umbilical hernia. 06/24/22: DR/Umbilical Hernia education. STG Duration 06/06/22 (06/24/22: Partially met goal) Mcfp Goal (LTG) Pt will be educated in self K- tape and a TA strengthening program to minimize her DR/ symphysis pubic separation, and pelvic stabilization for symphysis pubic dysfunction. 06/24/22: Pt introduced to K- taping. LTG Duration 08/24/22 (06/24/22: Progressed) One Impairment Lacks appropriate self care HEP Impairment Poor body mechanics with transfer sit<>supine, sit<> stand. Short Term Goal (STG) Pt will be educated in proper body mechanics appropriate for post- DR. (06/06/22: Pt educated in sit<> sup transfer with use of support to abdomen/DR). (07/03/22: Pt educated in proper body mechanics for post - DR). STG Duration 06/06/22 (07/03/22: MET GOAL) Mcfp Goal (LTG) Pt will be educated in a self care HEP to include core/ pelvic/hip strengthening. (06/06/22: Pt I/S in TA tightening in sup, and sidelie ). LTG Duration 08/24/22 (06/06/22: Progressed ) Assessment Summary Assessment Pt is post- with a 2.5 and less finger width diastasis rectus extending from sternum to pubic bone and pubic symphsis dysfunction. Pt is demonstrating improved sitting posture 50% of the time. K-tape last session was helpful today to give pt cuing to tighten TA. Pt was receptive to education in proper body mechanics appropriate for post- DR . She notes she still has tingling in her back with sit< >stand and it appears to be coming more from her mid thoracic region. Further assessment is needed. Physical Therapy Plan Frequency and Duration Frequency of Treatment 2x/Week Plan of Care Start Date 05/26/22 Plan of Care End Date 08/24/22 Next Visit Focus/Plan Next Note Type Treatment Note Next Visit Plan Assess response to K-tape. Assess mid thoracic for instability causing tinging of spine with sit<>stand. Educate pt in norm for DR, and prevention of abd doming with head lift, and self K-tape for DR. Manual for DR (QL rotators), umbilical hernia, pelvic balancing. Core & hip strengthening. HEP: Deep breathing, self K- tape and a TA strengthening program, Hip AB & IR stretches , and pelvic stabilization for symphysis pubic dysfunction, & hip strengthening.
--- NOTE | 2022-07-10 12:37 | PT.OTN ---
Current Diagnoses Separation of muscle (nontraumatic), other site (07/10/22) Physical Therapy Treatment Note PT-OP-A Visit Information Start: 05/23/22 17:25 Freq: Status: Active Protocol: Document 07/10/22 08:16 LRN (Rec: 07/10/22 09:03 LRN [id number]) Out-Patient Physical Therapy Visit Information Visit Information Visit Type Treatment Note Visit Start Time 08:16 Visit Stop Time 08:58 Total Visit Minutes 42 Visit Number 5 Evaluation Information Evaluation Date 05/26/22 Precautions Precautions Umbilical hernia, hx of inguinal hernia repairs bilateral 1997 (age 8) PT-OP-B Current Condition Start: 05/23/22 17:25 Freq: Status: Active Protocol: Document 05/26/22 14:42 LRN (Rec: 05/26/22 18:23 LRN [id number]) Current Condition History of Current Condition Onset Date 03/06/22 Current Complaints Concern Diastasis Rectus worsening, umbilical hernia pain, R MB>LB pain. History of Current Condition States after the 1st baby had coning of abdomen, and with 2nd baby has had more coning. Baby was 10#20oz, and his shoulder caught with childbearing and had to manipulate baby inside to get baby delivered. Baby in distress with cord around neck . Since childbirth, the pt is having core instability with abdominal weakness. She has had numbness in the R mid/low back that appears situational in nature, frequently, when getting up/down from sitting and with movement. She is experiencing a bolt of numbness/tingling in the R mid >low back that goes away within a few seconds. Prior Treatments and Tests None Developmental History Developmental History 2, Parity 2. Births on 03/06/[birth year] and 06/29/20. Children ages 23 months and 2. 5 months old. No dx of DR with 1st baby. Generalized LBP Treatment Goals Patient/Caregiver Goals Find out the severity of her DR. Pt education on protecting DR/umbilical hernia. Resolution of R back tingling/ numbness with positional changes (ex-sit<>stand and getting out of bed) and with lifting. Prior Functional Status Baseline Function- ADL's Independent Baseline Function- Mobility Independent Baseline Function- Recreation/Hobbies Exercises: Boxing, swimming weekly, and video cardio workouts daily. Current Functional Impairments (Reported) Functional Limitations- ADL's Not exercising. Personal Factors Other Personal Factors That May Effect Pt is mother of a 23 month yr Therapy/Recovery old and 2.5 month old. She is on maternity leave until 09/04/22. 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 PT-OP-C Subjective Start: 05/23/22 17:25 Freq: Status: Active Protocol: Document 07/10/22 08:16 LRN (Rec: 07/10/22 09:03 LRN [id number]) OP-PT Subjective Patient Comments Patient Comments Has new [employer] shoes. Pt reports less tingling in back if she doesn't lean fwd as much with sit<>stands. PT-OP-F Manual Assessment Start: 05/23/22 17:25 Freq: Status: Active Protocol: Document 05/26/22 14:42 LRN (Rec: 05/26/22 18:23 LRN [id number]) Manual Assessments Soft Tissue Assessment Soft Tissue Mobility Assessment Pubic symphysis increased separation at caudal half of joint. Finger widths: 3 Above umbilicus Shallow 2. 25 finger widths 2 Above umbilicus shallow 2. 5 finger widths 1 Above umbilicus 2.5 finger widths 1 Below umbilicus 3.0 finger widths 2 Below umbilicus 2.5 finger widths 3 Below umbilicus shallow 2. 5 finger widths 4 Below umbilicus shallow 2. 5 finger widths 5 Below umbilicus shallow 2. 5 finger widths PT-OP-J Posture/Palpation/Skin Start: 05/26/22 18:23 Freq: Status: Active Protocol: Document 07/10/22 08:16 LRN (Rec: 07/10/22 09:03 LRN [id number]) Palpation Assessment Location Abdomen Palpation Details 3 Above umbilicus Shallow 2. 25 finger widths 2 Above umbilicus shallow 2. 0 finger widths 1 Above umbilicus 2.5 finger widths 1 Below umbilicus 3.0 finger widths 2 Below umbilicus shallow 2. 5 finger widths 3 Below umbilicus shallow 2. 5 finger widths 4 Below umbilicus very shallow 2.5 finger widths 5 Below umbilicus very shallow 1.5 finger widths Pubic symphysis increased separation at caudal half of joint PT-OP-K Range of Motion Start: 05/23/22 17:25 Freq: Status: Active Protocol: Document 06/24/22 08:20 LRN (Rec: 06/24/22 09:03 LRN [id number]) Hip Goniometric Range of Motion Hip Right Passive Testing Position Supine Abduction 40 Internal Rotation 60 External Rotation 75 Left Passive Testing Position Supine Abduction 33 Internal Rotation 45 External Rotation 75 PT-OP-M Strength Start: 05/23/22 17:25 Freq: Status: Active Protocol: Document 05/26/22 14:42 LRN (Rec: 05/26/22 18:23 LRN [id number]) Trunk Strength Trunk Manual Muscle Testing Core Stabilization Pt is not able to tolerate resistance of leg lifting due to onset of LE ms spasms. Obvious doming of abdomen is present. Hip Strength Hip Manual Muscle Testing Right Flexion (L2) 3- Fair- Extension (S1) 5 Normal Abduction 5 Normal Adduction 2+ Poor+ External Rotation 3- Fair- Internal Rotation 3+ Fair+ Comments Ms cramp in Quads with leg lift Left Flexion (L2) 3- Fair- Extension (S1) 4 Good External Rotation 3- Fair- Internal Rotation 3+ Fair+ Comments Ms cramp in Quads with leg lift PT-OP-Q Treatments Start: 05/23/22 17:25 Freq: Status: Active Protocol: Document 07/10/22 08:16 LRN (Rec: 07/10/22 09:03 LRN [id number]) Therapeutic Exercises Supine Exercises TA tightening Supine Exercise Name TA tightening Side bilateral Reps/Minutes 2' Comments Pt needed cuing to exhale as tightening to engage lower TA Standing Exercises Posture training Standing Exercise Name Posture training with shoes and w/o new shoes Reps/Minutes 3' Other Exercises 4pt TA tightening Other Exercise Name 4 pt TA tightening Reps/Minutes 3' Manual Therapy Treatment Soft Tissue Mobilization External/Internal Obliques Body Location Ext/Int Obliques Mobilization Type Strumming Intensity/Depth Moderate Body Position Supine Comments 26' Taping K-tape abdomen Body Location Abdomen 1 vertical, 4 Horiz I- strips Treatment Focus DR support Type of Tape Kinesio Tape Skin Inspection Good Comments Pt educated in safe and proper removal of K-tape within 5 days. Pt in slight trunk flex w/TA tight to apply. Self-Care/Home Management Treatment Education Other Education Pt Educated in self Trunk rotator stretching. Activities Self-Care/Home Management Activities I/S pt in HEP: self trunk rotator stretching. PT-OP-T Assessment and Plan Start: 05/23/22 17:25 Freq: Status: Active Protocol: Document 07/10/22 08:16 LRN (Rec: 07/10/22 09:03 LRN [id number]) Physical Therapy Assessment Goals Four Impairment Poor posture with umbilical hernia Short Term Goal (STG) Pt will be educated in proper standing/sitting posture. 06/24/22: Educated pt in proper sitting and standing posture. Used lift under toes for standing correction. STG Duration 06/06/22 (06/06/22: MET GOAL) Mixing And Molding Machine Operator Goal (LTG) Pt will be able to perform a head lift in supine without doming of abdomen and decreased discomfort at umbilicus. 07/10/22: Pt able to head lift without doming of abdomen. LTG Duration 08/24/22 (07/10/22: Progressing) Three Impairment R mid to low back tingling/ numbness Impairment Pt has R mid to LB tingling/ numbness with positional changes, pain rated 3/10. Short Term Goal (STG) Pt will demonstrate improved posture and awareness in sitting and with changes of positions. (07/03/22: Pt sitting more upright in L/S, demonstrates upper thoracic increased kyphosis) STG Duration 07/12/22 (07/03/22: Improving) Mixing And Molding Machine Operator Goal (LTG) Resolution of R back tingling/ numbness with positional changes (ex-sit<>stand and getting out of bed) and with lifting. 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 25 finger widths 2 Above umbilicus shallow 2. 5 finger widths 1 Above umbilicus 2.5 finger widths 1 Below umbilicus 3.0 finger widths 2 Below umbilicus 2.5 finger widths 3 Below umbilicus shallow 2. 5 finger widths 4 Below umbilicus shallow 2. 5 finger widths 5 Below umbilicus shallow 2. 5 finger widths Pubic symphysis increased separation at caudal half of joint Short Term Goal (STG) Pt will be educated in the severity and education of her DR/umbilical hernia. 06/24/22: DR/Umbilical Hernia education. STG Duration 06/06/22 (06/24/22: Partially met goal) Detention Goal (LTG) Pt will be educated in self K- tape and a TA strengthening program to minimize her DR/ symphysis pubic separation, and pelvic stabilization for symphysis pubic dysfunction. 06/24/22: Pt introduced to K- taping. LTG Duration 08/24/22 (06/24/22: Progressed) One Impairment Lacks appropriate self care HEP Impairment Poor body mechanics with transfer sit<>supine, sit<> stand. Short Term Goal (STG) Pt will be educated in proper body mechanics appropriate for post- DR. (06/06/22: Pt educated in sit<> sup transfer with use of support to abdomen/DR). (07/03/22: Pt educated in proper body mechanics for post - DR). STG Duration 06/06/22 (07/03/22: MET GOAL) Mixing And Molding Machine Operator Goal (LTG) Pt will be educated in a self care HEP to include core/ pelvic/hip strengthening. (06/06/22: Pt I/S in TA tightening in sup, and sidelie ). LTG Duration 08/24/22 (06/06/22: Progressed ) Assessment Summary Assessment K-tape was helpful to pt, but pt felt uncomfortable with the tape on after a few days; therefore pt to wear K-tape for 2-[address]'s [address] decreasing in depth at proximal and distal ends. Physical Therapy Plan Frequency and Duration Frequency of Treatment 2x/Week Plan of Care Start Date 05/26/22 Plan of Care End Date 08/24/22 Next Visit Focus/Plan Next Note Type Treatment Note Next Visit Plan Assess response to K-tape. Assess mid thoracic for instability causing tinging of spine with sit<>stand. Educate pt in norm for DR, and self K-tape for DR. Manual for DR (QL rotators), umbilical hernia, pelvic balancing. Core & hip strengthening. HEP: Deep breathing, self K- tape and a TA strengthening program, Hip AB & IR stretches , and pelvic stabilization for symphysis pubic dysfunction, & hip strengthening.
--- NOTE | 2022-07-17 17:40 | PT.OTN ---
Current Diagnoses Separation of muscle (nontraumatic), other site (07/17/22) Physical Therapy Treatment Note PT-OP-A Visit Information Start: 05/23/22 17:25 Freq: Status: Active Protocol: Document 07/17/22 08:19 LRN (Rec: 07/17/22 09:03 LRN [id number]) Out-Patient Physical Therapy Visit Information Visit Information Visit Type Treatment Note Visit Start Time 08:19 Visit Stop Time 08:58 Total Visit Minutes 39 Visit Number 6 Evaluation Information Evaluation Date 05/26/22 Precautions Precautions Umbilical hernia, hx of inguinal hernia repairs bilateral 1997 (age 8) PT-OP-B Current Condition Start: 05/23/22 17:25 Freq: Status: Active Protocol: Document 05/26/22 14:42 LRN (Rec: 05/26/22 18:23 LRN [id number]) Current Condition History of Current Condition Onset Date 03/06/22 Current Complaints Concern Diastasis Rectus worsening, umbilical hernia pain, R MB>LB pain. History of Current Condition States after the 1st baby had coning of abdomen, and with 2nd baby has had more coning. Baby was 10#20oz, and his shoulder caught with childbearing and had to manipulate baby inside to get baby delivered. Baby in distress with cord around neck . Since childbirth, the pt is having core instability with abdominal weakness. She has had numbness in the R mid/low back that appears situational in nature, frequently, when getting up/down from sitting and with movement. She is experiencing a bolt of numbness/tingling in the R mid >low back that goes away within a few seconds. Prior Treatments and Tests None Developmental History Developmental History 2, Parity 2. Births on 03/06/22 and 06/29/20. Children ages 23 months and 2. 5 months old. No dx of DR with 1st baby. Generalized LBP Treatment Goals Patient/Caregiver Goals Find out the severity of her DR. Pt education on protecting DR/umbilical hernia. Resolution of R back tingling/ numbness with positional changes (ex-sit<>stand and getting out of bed) and with lifting. Prior Functional Status Baseline Function- ADL's Independent Baseline Function- Mobility Independent Baseline Function- Recreation/Hobbies Exercises: Boxing, swimming weekly, and video cardio workouts daily. Current Functional Impairments (Reported) Functional Limitations- ADL's Not exercising. Personal Factors Other Personal Factors That May Effect Pt is mother of a 23 month yr Therapy/Recovery old and 2.5 month old. She is on maternity leave until 09/04/22. 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 PT-OP-C Subjective Start: 05/23/22 17:25 Freq: Status: Active Protocol: Document 07/17/22 08:19 LRN (Rec: 07/17/22 09:03 LRN [id number]) OP-PT Subjective Patient Comments Patient Comments Both children are sick. Pt very tired. Being careful getting up; therefore tingling in back is not as bad. Requests no tape today due to being in wedding soon. PT-OP-F Manual Assessment Start: 05/23/22 17:25 Freq: Status: Active Protocol: Document 05/26/22 14:42 LRN (Rec: 05/26/22 18:23 LRN [id number]) Manual Assessments Soft Tissue Assessment Soft Tissue Mobility Assessment Pubic symphysis increased separation at caudal half of joint. Finger widths: 3 Above umbilicus Shallow 2. 25 finger widths 2 Above umbilicus shallow 2. 5 finger widths 1 Above umbilicus 2.5 finger widths 1 Below umbilicus 3.0 finger widths 2 Below umbilicus 2.5 finger widths 3 Below umbilicus shallow 2. 5 finger widths 4 Below umbilicus shallow 2. 5 finger widths 5 Below umbilicus shallow 2. 5 finger widths PT-OP-J Posture/Palpation/Skin Start: 05/26/22 18:23 Freq: Status: Active Protocol: Document 07/10/22 08:16 LRN (Rec: 07/10/22 09:03 LRN [id number]) Palpation Assessment Location Abdomen Palpation Details 3 Above umbilicus Shallow 2. 25 finger widths 2 Above umbilicus shallow 2. 0 finger widths 1 Above umbilicus 2.5 finger widths 1 Below umbilicus 3.0 finger widths 2 Below umbilicus shallow 2. 5 finger widths 3 Below umbilicus shallow 2. 5 finger widths 4 Below umbilicus very shallow 2.5 finger widths 5 Below umbilicus very shallow 1.5 finger widths Pubic symphysis increased separation at caudal half of joint PT-OP-K Range of Motion Start: 05/23/22 17:25 Freq: Status: Active Protocol: Document 06/24/22 08:20 LRN (Rec: 06/24/22 09:03 LRN [id number]) Hip Goniometric Range of Motion Hip Right Passive Testing Position Supine Abduction 40 Internal Rotation 60 External Rotation 75 Left Passive Testing Position Supine Abduction 33 Internal Rotation 45 External Rotation 75 PT-OP-M Strength Start: 05/23/22 17:25 Freq: Status: Active Protocol: Document 05/26/22 14:42 LRN (Rec: 05/26/22 18:23 LRN [id number]) Trunk Strength Trunk Manual Muscle Testing Core Stabilization Pt is not able to tolerate resistance of leg lifting due to onset of LE ms spasms. Obvious doming of abdomen is present. Hip Strength Hip Manual Muscle Testing Right Flexion (L2) 3- Fair- Extension (S1) 5 Normal Abduction 5 Normal Adduction 2+ Poor+ External Rotation 3- Fair- Internal Rotation 3+ Fair+ Comments Ms cramp in Quads with leg lift Left Flexion (L2) 3- Fair- Extension (S1) 4 Good External Rotation 3- Fair- Internal Rotation 3+ Fair+ Comments Ms cramp in Quads with leg lift PT-OP-Q Treatments Start: 05/23/22 17:25 Freq: Status: Active Protocol: Document 07/17/22 08:19 LRN (Rec: 07/17/22 09:03 LRN [id number]) Therapeutic Exercises Supine Exercises Diagonal Core strengthening Supine Exercise Name Trunk Rot: Clasp hands, knee roll opp direction Side bilateral Reps/Minutes 6' Bridging Supine Exercise Name Roll up bridging Reps/Minutes 10x Comments Cuing to slowly, segmentally roll up Other Exercises 4 pt leg lifts Other Exercise Name 4 pt alternate leg lifts Equipment Used Dowel stick Reps/Minutes 5' Comments Cuing to keep TA tight and pelvis level 4 pt arm lifts Other Exercise Name 4 pt alternate arm lifts Reps/Minutes 5' Comments Cuing to keep TA tight and pelvis level 4pt TA tightening Other Exercise Name 4 pt TA tightening Reps/Minutes 3' Manual Therapy Treatment Soft Tissue Mobilization External/Internal Obliques Body Location Ext/Int Obliques Mobilization Type Strumming Intensity/Depth Moderate Body Position Supine Comments 17' PT-OP-T Assessment and Plan Start: 05/23/22 17:25 Freq: Status: Active Protocol: Document 07/17/22 08:19 LRN (Rec: 07/17/22 09:03 LRN [id number]) Physical Therapy Assessment Goals Four Impairment Poor posture with umbilical hernia Short Term Goal (STG) Pt will be educated in proper standing/sitting posture. 06/24/22: Educated pt in proper sitting and standing posture. Used lift under toes for standing correction. STG Duration 06/06/22 (06/06/22: MET GOAL) Skilled Nursing Goal (LTG) Pt will be able to perform a head lift in supine without doming of abdomen and decreased discomfort at umbilicus. 07/10/22: Pt able to head lift without doming of abdomen. LTG Duration 08/24/22 (07/10/22: Progressing) Three Impairment R mid to low back tingling/ numbness Impairment Pt has R mid to LB tingling/ numbness with positional changes, pain rated 3/10. Short Term Goal (STG) Pt will demonstrate improved posture and awareness in sitting and with changes of positions. (07/03/22: Pt sitting more upright in L/S, demonstrates upper thoracic increased kyphosis) (07/17/22: Pt demonstrated minimal postural slump in sitting, and immediately corrected with cuing). STG Duration 07/12/22 (07/17/22: MET GOAL) Adoption Social Worker Goal (LTG) Resolution of R back tingling/ numbness with positional changes (ex-sit<>stand and getting out of bed) and with lifting. 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 25 finger widths 2 Above umbilicus shallow 2. 5 finger widths 1 Above umbilicus 2.5 finger widths 1 Below umbilicus 3.0 finger widths 2 Below umbilicus 2.5 finger widths 3 Below umbilicus shallow 2. 5 finger widths 4 Below umbilicus shallow 2. 5 finger widths 5 Below umbilicus shallow 2. 5 finger widths Pubic symphysis increased separation at caudal half of joint Short Term Goal (STG) Pt will be educated in the severity and education of her DR/umbilical hernia. 06/24/22: DR/Umbilical Hernia education. STG Duration 06/06/22 (06/24/22: Partially met goal) Skilled Nursing Goal (LTG) Pt will be educated in self K- tape and a TA strengthening program to minimize her DR/ symphysis pubic separation, and pelvic stabilization for symphysis pubic dysfunction. 06/24/22: Pt introduced to K- taping. LTG Duration 08/24/22 (06/24/22: Progressed) One Impairment Lacks appropriate self care HEP Impairment Poor body mechanics with transfer sit<>supine, sit<> stand. Short Term Goal (STG) Pt will be educated in proper body mechanics appropriate for post- DR. (06/06/22: Pt educated in sit<> sup transfer with use of support to abdomen/DR). (07/03/22: Pt educated in proper body mechanics for post - DR). STG Duration 06/06/22 (07/03/22: MET GOAL) Skilled Nursing Goal (LTG) Pt will be educated in a self care HEP to include core/ pelvic/hip strengthening. (06/06/22: Pt I/S in TA tightening in sup, and sidelie ). (07/17/22: Pt I/S in core stab of 4pt leg lifts and UE lifts). LTG Duration 08/24/22 (07/17/22: Progressed) Assessment Summary Assessment Pt tingling in mid thoracic with sit<>stand appears primarily due to weakness from carrying baby in arms with transfer. Pt has no pain with sit<>stand without weight in arms. K-tape was helpful for TA tightening and pt reports skin was fine. She requests no tape today due to attending wedding. Pt's Ext Obliques are tighter on the Left. Pt has very weak lower abdominal TA's. With core stab: 4pt leg lifts were difficult on R side to maintain stability. Less mvmt of pelvis with UE lifts Physical Therapy Plan Frequency and Duration Frequency of Treatment 2x/Week Plan of Care Start Date 05/26/22 Plan of Care End Date 08/24/22 Next Visit Focus/Plan Next Note Type Treatment Note Next Visit Plan Educate pt in norm for , and self K-tape for DR. Manual for (QL rotators), umbilical hernia, pelvic balancing. Core & hip strengthening. HEP: Deep breathing, self K- tape and a TA strengthening program, Hip AB & IR stretches , and pelvic stabilization for symphysis pubic dysfunction, & hip strengthening.
--- NOTE | 2022-07-31 17:36 | PT.OTN ---
Current Diagnoses Separation of muscle (nontraumatic), other site (07/31/22) Physical Therapy Treatment Note PT-OP-A Visit Information Start: 05/23/22 17:25 Freq: Status: Active Protocol: Document 07/31/22 08:18 LRN (Rec: 07/31/22 09:03 LRN [id number]) Out-Patient Physical Therapy Visit Information Visit Information Visit Type Treatment Note Visit Start Time 08:17 Visit Stop Time 08:57 Total Visit Minutes 40 Visit Number 7 Evaluation Information Evaluation Date 05/26/22 Precautions Precautions Umbilical hernia, hx of inguinal hernia repairs bilateral 1997 (age 8) PT-OP-B Current Condition Start: 05/23/22 17:25 Freq: Status: Active Protocol: Document 05/26/22 14:42 LRN (Rec: 05/26/22 18:23 LRN [id number]) Current Condition History of Current Condition Onset Date 03/06/22 Current Complaints Concern Diastasis Rectus worsening, umbilical hernia pain, R MB>LB pain. History of Current Condition States after the 1st baby had coning of abdomen, and with 2nd baby has had more coning. Baby was 10#20oz, and his shoulder caught with childbearing and had to manipulate baby inside to get baby delivered. Baby in distress with cord around neck . Since childbirth, the pt is having core instability with abdominal weakness. She has had numbness in the R mid/low back that appears situational in nature, frequently, when getting up/down from sitting and with movement. She is experiencing a bolt of numbness/tingling in the R mid >low back that goes away within a few seconds. Prior Treatments and Tests None Developmental History Developmental History 2, Parity 2. Births on [birth year]/06/[birth year] and 06/29/20. Children ages 23 months and 2. 5 months old. No dx of DR with 1st baby. Generalized LBP Treatment Goals Patient/Caregiver Goals Find out the severity of her DR. Pt education on protecting DR/umbilical hernia. Resolution of R back tingling/ numbness with positional changes (ex-sit<>stand and getting out of bed) and with lifting. Prior Functional Status Baseline Function- ADL's Independent Baseline Function- Mobility Independent Baseline Function- Recreation/Hobbies Exercises: Boxing, swimming weekly, and video cardio workouts daily. Current Functional Impairments (Reported) Functional Limitations- ADL's Not exercising. Personal Factors Other Personal Factors That May Effect Pt is mother of a 23 month yr Therapy/Recovery old and 2.5 month old. She is on maternity leave until 09/04/22. 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 PT-OP-C Subjective Start: 05/23/22 17:25 Freq: Status: Active Protocol: Document 07/31/22 08:18 LRN (Rec: 07/31/22 09:03 LRN [id number]) OP-PT Subjective Patient Comments Patient Comments Things have been good. Has been using video on DR repair for the past week and has been nice to be consistent to doing the exercises. Has been trying to work on core. Hasn 't felt the back pain recently . PT-OP-F Manual Assessment Start: 05/23/22 17:25 Freq: Status: Active Protocol: Document 05/26/22 14:42 LRN (Rec: 05/26/22 18:23 LRN [id number]) Manual Assessments Soft Tissue Assessment Soft Tissue Mobility Assessment Pubic symphysis increased separation at caudal half of joint. Finger widths: 3 Above umbilicus Shallow 2. 25 finger widths 2 Above umbilicus shallow 2. 5 finger widths 1 Above umbilicus 2.5 finger widths 1 Below umbilicus 3.0 finger widths 2 Below umbilicus 2.5 finger widths 3 Below umbilicus shallow 2. 5 finger widths 4 Below umbilicus shallow 2. 5 finger widths 5 Below umbilicus shallow 2. 5 finger widths PT-OP-J Posture/Palpation/Skin Start: 05/26/22 18:23 Freq: Status: Active Protocol: Document 07/31/22 08:18 LRN (Rec: 07/31/22 17:36 LRN [id number]) Palpation Assessment Location Abdomen Palpation Details 3 Above umbilicus Shallow 2. 0 finger widths 2 Above umbilicus shallow 2. 25 finger widths 1 Above umbilicus 2.5 finger widths 1 Below umbilicus shallow 2. 5 finger widths 2 Below umbilicus shallow 2. 5 finger widths 3 Below umbilicus shallow 2. 5 finger widths 4 Below umbilicus very shallow 2.25 finger widths 5 Below umbilicus very shallow 1.5 finger widths Pubic symphysis increased separation at caudal half of joint PT-OP-K Range of Motion Start: 05/23/22 17:25 Freq: Status: Active Protocol: Document 06/24/22 08:20 LRN (Rec: 06/24/22 09:03 LRN [id number]) Hip Goniometric Range of Motion Hip Right Passive Testing Position Supine Abduction 40 Internal Rotation 60 External Rotation 75 Left Passive Testing Position Supine Abduction 33 Internal Rotation 45 External Rotation 75 PT-OP-M Strength Start: 05/23/22 17:25 Freq: Status: Active Protocol: Document 05/26/22 14:42 LRN (Rec: 05/26/22 18:23 LRN [id number]) Trunk Strength Trunk Manual Muscle Testing Core Stabilization Pt is not able to tolerate resistance of leg lifting due to onset of LE ms spasms. Obvious doming of abdomen is present. Hip Strength Hip Manual Muscle Testing Right Flexion (L2) 3- Fair- Extension (S1) 5 Normal Abduction 5 Normal Adduction 2+ Poor+ External Rotation 3- Fair- Internal Rotation 3+ Fair+ Comments Ms cramp in Quads with leg lift Left Flexion (L2) 3- Fair- Extension (S1) 4 Good External Rotation 3- Fair- Internal Rotation 3+ Fair+ Comments Ms cramp in Quads with leg lift PT-OP-Q Treatments Start: 05/23/22 17:25 Freq: Status: Active Protocol: Document 07/31/22 08:18 LRN (Rec: 07/31/22 09:03 LRN [id number]) Therapeutic Exercises Supine Exercises Toe taps Supine Exercise Name Hooklie-toe taps Side bilateral Reps/Minutes 10' Comments Loss core R due to weak hip flexors, L due to weak TA. Diagonal Core strengthening Supine Exercise Name Trunk Rot: Clasp hands, knee roll opp direction Side bilateral Reps/Minutes 6' TA tightening Supine Exercise Name TA tightening-w/breathing Side bilateral Reps/Minutes 3' Comments Pt needed cuing to exhale as tightening to engage lower TA Manual Therapy Treatment Soft Tissue Mobilization External/Internal Obliques Body Location Ext/Int Obliques Mobilization Type Strumming Intensity/Depth Moderate Body Position Supine Comments 8' Self-Care/Home Management Treatment Education Patient Education Home Exercise Program Other Education Discussed HEP and daily activities and exer video she has. Reviewed questions/concerns of the exercises on the video. Activities Self-Care/Home Management Activities Training for pt self DR assessment. Issued HEP for Lower ab strengthening: March-foot tap . Pt not able to maintain TA (doming occured) with step outs; therefore only progressed to first ex of marching foot taps. PT-OP-T Assessment and Plan Start: 05/23/22 17:25 Freq: Status: Active Protocol: Document 07/31/22 08:18 LRN (Rec: 07/31/22 09:03 LRN [id number]) Physical Therapy Assessment Goals Four Impairment Poor posture with umbilical hernia Short Term Goal (STG) Pt will be educated in proper standing/sitting posture. 06/24/22: Educated pt in proper sitting and standing posture. Used lift under toes for standing correction. STG Duration 06/06/22 (06/06/22: MET GOAL) Blade Grader Operator Goal (LTG) Pt will be able to perform a head lift in supine without doming of abdomen and decreased discomfort at umbilicus. 07/10/22: Pt able to head lift without doming of abdomen. LTG Duration 08/24/22 (07/10/22: Progressing) Three Impairment R mid to low back tingling/ numbness Impairment Pt has R mid to LB tingling/ numbness with positional changes, pain rated 3/10. Short Term Goal (STG) Pt will demonstrate improved posture and awareness in sitting and with changes of positions. (07/03/22: Pt sitting more upright in L/S, demonstrates upper thoracic increased kyphosis) (07/17/22: Pt demonstrated minimal postural slump in sitting, and immediately corrected with cuing). STG Duration 07/12/22 (07/17/22: MET GOAL) Mcc Goal (LTG) Resolution of R back tingling/ numbness with positional changes (ex-sit<>stand and getting out of bed) and with lifting. 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 25 finger widths 2 Above umbilicus shallow 2. 5 finger widths 1 Above umbilicus 2.5 finger widths 1 Below umbilicus 3.0 finger widths 2 Below umbilicus 2.5 finger widths 3 Below umbilicus shallow 2. 5 finger widths 4 Below umbilicus shallow 2. 5 finger widths 5 Below umbilicus shallow 2. 5 finger widths Pubic symphysis increased separation at caudal half of joint Short Term Goal (STG) Pt will be educated in the severity and education of her DR/umbilical hernia. 06/24/22: DR/Umbilical Hernia education. STG Duration 06/06/22 (06/24/22: Partially met goal) Blade Grader Operator Goal (LTG) Pt will be educated in self K- tape and a TA strengthening program to minimize her DR/ symphysis pubic separation, and pelvic stabilization for symphysis pubic dysfunction. 06/24/22: Pt introduced to K- taping. LTG Duration 08/24/22 (06/24/22: Progressed) One Impairment Lacks appropriate self care HEP Impairment Poor body mechanics with transfer sit<>supine, sit<> stand. Short Term Goal (STG) Pt will be educated in proper body mechanics appropriate for post- DR. (06/06/22: Pt educated in sit<> sup transfer with use of support to abdomen/DR). (07/03/22: Pt educated in proper body mechanics for post - DR). STG Duration 06/06/22 (07/03/22: MET GOAL) Blade Grader Operator Goal (LTG) Pt will be educated in a self care HEP to include core/ pelvic/hip strengthening. (06/06/22: Pt I/S in TA tightening in sup, and sidelie ). (07/17/22: Pt I/S in core stab of 4pt leg lifts and UE lifts). LTG Duration 08/24/22 (07/17/22: Progressed) Assessment Summary Assessment Pt Had a fairly good understanding of DR self assessment after education. Her DR is becoming more shallow in lower abdomen, but worsening above umbilicus due to pt wearing of youngest child in halter that encloses the lower ab but allows for movement of upper ab with breathing. Pt is not able to draw ribcage inward with breathing and is not able to maintain TA (lower or upper) during breathing. Physical Therapy Plan Frequency and Duration Frequency of Treatment 2x/Week Plan of Care Start Date 05/26/22 Plan of Care End Date 08/24/22 Next Visit Focus/Plan Next Note Type Progress Note Next Visit Plan PN next visit to extend POC date because pt losing insurance (I/S) 08/05/22, but getting new insurance 08/24/22 ; therefore will resume PT after pt approved for therapy with new insurance. Review pt self assess for DR and discuss norm for DR post and w/, discuss pt education in self K-tape for DR if wanted. Manual for DR (QL rotators), umbilical hernia, pelvic balancing. Core & hip strengthening. HEP: Deep breathing, self K- tape and a TA strengthening program, Hip AB & IR stretches , and pelvic stabilization for symphysis pubic dysfunction, & hip strengthening.
--- NOTE | 2022-08-04 18:39 | PT.OTN ---
Current Diagnoses Separation of muscle (nontraumatic), other site (08/04/22) Physical Therapy Treatment Note PT-OP-A Visit Information Start: 05/23/22 17:25 Freq: Status: Active Protocol: Document 08/04/22 09:47 LRN (Rec: 08/04/22 10:31 LRN [id number]) Out-Patient Physical Therapy Visit Information Visit Information Visit Type Treatment Note Visit Start Time 09:47 Visit Stop Time 10:30 Total Visit Minutes 43 Visit Number [id number] Evaluation Information Evaluation Date 05/26/22 Precautions Precautions Umbilical hernia, hx of inguinal hernia repairs bilateral 1997 (age 8) PT-OP-B Current Condition Start: 05/23/22 17:25 Freq: Status: Active Protocol: Document 05/26/22 14:42 LRN (Rec: 05/26/22 18:23 LRN [id number]) Current Condition History of Current Condition Onset Date 03/06/22 Current Complaints Concern Diastasis Rectus worsening, umbilical hernia pain, R MB>LB pain. History of Current Condition States after the 1st baby had coning of abdomen, and with 2nd baby has had more coning. Baby was 10#20oz, and his shoulder caught with childbearing and had to manipulate baby inside to get baby delivered. Baby in distress with cord around neck . Since childbirth, the pt is having core instability with abdominal weakness. She has had numbness in the R mid/low back that appears situational in nature, frequently, when getting up/down from sitting and with movement. She is experiencing a bolt of numbness/tingling in the R mid >low back that goes away within a few seconds. Prior Treatments and Tests None Developmental History Developmental History 2, Parity 2. Births on 03/06/22 and 06/29/20. Children ages 23 months and 2. 5 months old. No dx of DR with 1st baby. Generalized LBP Treatment Goals Patient/Caregiver Goals Find out the severity of her DR. Pt education on protecting DR/umbilical hernia. Resolution of R back tingling/ numbness with positional changes (ex-sit<>stand and getting out of bed) and with lifting. Prior Functional Status Baseline Function- ADL's Independent Baseline Function- Mobility Independent Baseline Function- Recreation/Hobbies Exercises: Boxing, swimming weekly, and video cardio workouts daily. Current Functional Impairments (Reported) Functional Limitations- ADL's Not exercising. Personal Factors Other Personal Factors That May Effect Pt is mother of a 23 month yr Therapy/Recovery old and 2.5 month old. She is on maternity leave until 09/04/22. 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 PT-OP-C Subjective Start: 05/23/22 17:25 Freq: Status: Active Protocol: Document 08/04/22 09:47 LRN (Rec: 08/04/22 10:31 LRN [id number]) OP-PT Subjective Patient Comments Patient Comments Having brief sharp shooting pain in R anterior hip into groin. Happens with regular walking with R WBing. Same sensation as when having sciatic nerve pain except this is in the front. Patient Questionnaires Pelvic Pain and Urgency/Frequency Patient Symptom Scale Pelvic Pain Score 2 OP-PT Pain Assessment Pain Assessment Grid Paper Pain Assessment Grid Completed Yes Location R PSIS/ASIS Pain Location Details R PSIS/ASIS Intensity 4 Scale Used Numeric (0 - 10) Description Sharp Frequency Intermittent Lower thoracic>Upper lumbar region Pain Location Details Mid back Intensity 0 Scale Used Numeric (0 - 10) Description- Other Numbness Frequency Occasional Other Pain Aggravating Factors Sit to stand with baby in front pack Lower Abdomen Intensity 0 Scale Used Numeric (0 - 10) Description Tender Abdomen Pain Location Details Anterior abdomen, Above Umbilicus to below Xyphoid process. Intensity 2 Scale Used Numeric (0 - 10) PT-OP-F Manual Assessment Start: 05/23/22 17:25 Freq: Status: Active Protocol: Document 05/26/22 14:42 LRN (Rec: 05/26/22 18:23 LRN [id number]) Manual Assessments Soft Tissue Assessment Soft Tissue Mobility Assessment Pubic symphysis increased separation at caudal half of joint. Finger widths: 3 Above umbilicus Shallow 2. 25 finger widths 2 Above umbilicus shallow 2. 5 finger widths 1 Above umbilicus 2.5 finger widths 1 Below umbilicus 3.0 finger widths 2 Below umbilicus 2.5 finger widths 3 Below umbilicus shallow 2. 5 finger widths 4 Below umbilicus shallow 2. 5 finger widths 5 Below umbilicus shallow 2. 5 finger widths PT-OP-J Posture/Palpation/Skin Start: 05/26/22 18:23 Freq: Status: Active Protocol: Document 07/31/22 08:18 LRN (Rec: 07/31/22 17:36 LRN [id number]) Palpation Assessment Location Abdomen Palpation Details 3 Above umbilicus Shallow 2. 0 finger widths 2 Above umbilicus shallow 2. 25 finger widths 1 Above umbilicus 2.5 finger widths 1 Below umbilicus shallow 2. 5 finger widths 2 Below umbilicus shallow 2. 5 finger widths 3 Below umbilicus shallow 2. 5 finger widths 4 Below umbilicus very shallow 2.25 finger widths 5 Below umbilicus very shallow 1.5 finger widths Pubic symphysis increased separation at caudal half of joint PT-OP-K Range of Motion Start: 05/23/22 17:25 Freq: Status: Active Protocol: Document 06/24/22 08:20 LRN (Rec: 06/24/22 09:03 LRN [id number]) Hip Goniometric Range of Motion Hip Right Passive Testing Position Supine Abduction 40 Internal Rotation 60 External Rotation 75 Left Passive Testing Position Supine Abduction 33 Internal Rotation 45 External Rotation 75 PT-OP-M Strength Start: 05/23/22 17:25 Freq: Status: Active Protocol: Document 05/26/22 14:42 LRN (Rec: 05/26/22 18:23 LRN [id number]) Trunk Strength Trunk Manual Muscle Testing Core Stabilization Pt is not able to tolerate resistance of leg lifting due to onset of LE ms spasms. Obvious doming of abdomen is present. Hip Strength Hip Manual Muscle Testing Right Flexion (L2) 3- Fair- Extension (S1) 5 Normal Abduction 5 Normal Adduction 2+ Poor+ External Rotation 3- Fair- Internal Rotation 3+ Fair+ Comments Ms cramp in Quads with leg lift Left Flexion (L2) 3- Fair- Extension (S1) 4 Good External Rotation 3- Fair- Internal Rotation 3+ Fair+ Comments Ms cramp in Quads with leg lift PT-OP-Q Treatments Start: 05/23/22 17:25 Freq: Status: Active Protocol: Document 08/04/22 09:47 LRN (Rec: 08/04/22 10:31 LRN [id number]) Therapeutic Exercises Supine Exercises TA tightening Supine Exercise Name Upper TA tightening and automatic TA tightening (w/o breath to start) Side bilateral Reps/Minutes 5' Comments Cuing to draw ribcage in and for auto TA tightening w/o holding breath. Sitting Exercises Cough TA tightening Sitting Exercise Name Cough TA tightening. Comments Pt able to pull TA in when coughing. Manual Therapy Treatment Soft Tissue Mobilization Abdomen Body Location Upper Abdomen Mobilization Type Myofascial Release,Sustained Pressure Body Position Supine Posterior Low Back Body Location Posterior Low back Mobilization Type Myofascial Release,Sustained Pressure Body Position Prone Comments MFR to abdomen and Posterior LB for rotation, SB Posterior Mid back Body Location Posterior Mid back Mobilization Type Myofascial Release,Sustained Pressure Body Position Prone Comments MFR to abdomen and Posterior LB for rotation, SB External/Internal Obliques Body Location Claude Ext/Int Obliques Mobilization Type Sustained Pressure Intensity/Depth Moderate Body Position Supine Self-Care/Home Management Treatment Education Other Education Pt educated and discusssed norm for DR post recovery, timeframe with , severity factors for DR (shallow vs deep and width). Educated and discussed with pt precautions for progressing exercise (ex-pain, doming, loss of pelvic/core stability) . Reviewed pt self assess for DR . PT-OP-T Assessment and Plan Start: 05/23/22 17:25 Freq: Status: Active Protocol: Document 08/04/22 09:47 LRN (Rec: 08/04/22 10:31 LRN [id number]) Physical Therapy Assessment Rehab Potential Rehabilitation Potential Excellent Evaluation Complexity Number of Personal Factors/Comorbidities 1-2 Number of Body Systems Impaired 4 or More Clinical Presentation at Evaluation Evolving Impairments Impairments Activity Tolerance,Pain, Posture,ROM,Soft Tissue Mobility,Strength,Transfers Goals Four Impairment Poor posture with umbilical hernia Short Term Goal (STG) Pt will be educated in proper standing/sitting posture. 06/24/22: Educated pt in proper sitting and standing posture. Used lift under toes for standing correction. STG Duration 06/06/22 (06/06/22: MET GOAL) Chemistry Associate Goal (LTG) Pt will be able to perform a head lift in supine without doming of abdomen and decreased discomfort at umbilicus. 07/10/22: Pt able to head lift without doming of abdomen. 08/04/22: No umbilical pain with head lift, but pt notes has discomfort when in sitting /standing - holding baby in front pack. LTG Duration 08/24/22 (08/04/22: MET GOAL ) Three Impairment R mid to low back tingling/ numbness Impairment Pt has R mid to LB tingling/ numbness with positional changes, pain rated 3/10. Short Term Goal (STG) Pt will demonstrate improved posture and awareness in sitting and with changes of positions. (07/03/22: Pt sitting more upright in L/S, demonstrates upper thoracic increased kyphosis) (07/17/22: Pt demonstrated minimal postural slump in sitting, and immediately corrected with cuing). STG Duration 07/12/22 (07/17/22: MET GOAL) Usp Goal (LTG) Resolution of R back tingling/ numbness with positional changes (ex-sit<>stand and getting out of bed) and with lifting. 08/04/22: Occurs occasionally . 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 25 finger widths 2 Above umbilicus shallow 2. 5 finger widths 1 Above umbilicus 2.5 finger widths 1 Below umbilicus 3.0 finger widths 2 Below umbilicus 2.5 finger widths 3 Below umbilicus shallow 2. 5 finger widths 4 Below umbilicus shallow 2. 5 finger widths 5 Below umbilicus shallow 2. 5 finger widths Pubic symphysis increased separation at caudal half of joint Short Term Goal (STG) Pt will be educated in the severity and education of her DR/umbilical hernia. 06/24/22: DR/Umbilical Hernia education. 08/04/22: Educated pt in severity factors for DR STG Duration 06/06/22 (08/04/22: MET GOAL ) Usp Goal (LTG) Pt will be independent in a TA strengthening program without doming of her abdomen (to minimize her DR/symphysis pubic separation), and a pelvic stabilization for symphysis pubic dysfunction. 06/24/22: Pt introduced to K- taping. 08/04/22: Pt choosing not to use K-tape at home. LTG Duration 08/24/22 (08/04/22: DC K- tape goal, not longer appropriate at pt request) One Impairment Lacks appropriate self care HEP Impairment Poor body mechanics with transfer sit<>supine, sit<> stand. Short Term Goal (STG) Pt will be educated in proper body mechanics appropriate for post- . (06/06/22: Pt educated in sit<> sup transfer with use of support to abdomen/DR). (07/03/22: Pt educated in proper body mechanics for post - DR). STG Duration 06/06/22 (07/03/22: MET GOAL) Chemistry Associate Goal (LTG) Pt will be educated in a self care HEP to include core/ pelvic/hip strengthening. (06/06/22: Pt I/S in TA tightening in sup, and sidelie ). (07/17/22: Pt I/S in core stab of 4pt leg lifts and UE lifts). LTG Duration 08/24/22 (07/17/22: Progressed) Progress Towards Goals Progress Towards Goals Progressing Toward Goals Progress Comments STG #2 MET. LTG #2 DC'd K- tape part of goal due to pt not interested in using at home. LTG #3 Progressed, Occasional tingling in midback with positional changes. STG 3 # MET. No umibilcal hernia pain with lifting of head in supine. Assessment Summary Assessment Pt indicates occasional pain with intercourse; therefore further assessment may be needed to assess for tightness of PF. Pt's Diastasis Rectus has lessened inferior to umbilicus, but has increased above umbilicus, probably due to pt wearing baby in front pack that stabilizes lower abdomen leaving upper abdomen open. The pt is not able to contract upper TA's with minimal drawing in of ribcage noted. The pt has fascial tightness in back/abdomen creating occasional back pain. The pt chooses not to use K- tape at home; therefore DC LTG #3. Physical Therapy Plan Frequency and Duration Frequency of Treatment 2x/Week Plan of Care Start Date 08/04/22 Plan of Care End Date 10/03/22 Therapeutic Interventions Therapeutic Interventions Home Exercise Program,Joint Mobilizations,Manual Therapy, Neuromuscular Re-education, Patient/Caregiver Education, Self-Care/Home Management,Soft Tissue Mobilization, Therapeutic Activities, Therapeutic Exercises Modalities Cold Pack/Ice Massage,Electric Stimulation,Hot Packs Next Visit Focus/Plan Next Note Type Progress Note Next Visit Plan Pt losing insurance (I/S) 08/05, but getting I/S on ; therefore will resume PT after pt approved for therapy with new insurance. Assess PF for pain with intercourse. Manual: for DR (QL rotators), umbilical hernia, pelvic balancing. Ther Ex: Core & hip strengthening. Progress to return to home ex program. HEP: Deep breathing, TA strengthening program, Hip AB & IR stretches, and pelvic stabilization for symphysis pubic dysfunction, & hip strengthening. Modalities for back pain.
--- NOTE | 2022-09-01 17:40 | PT.OTN ---
Current Diagnoses Separation of muscle (nontraumatic), other site (09/01/22) Physical Therapy Treatment Note PT-OP-A Visit Information Start: 05/23/22 17:25 Freq: Status: Active Protocol: Document 09/01/22 09:05 LRN (Rec: 09/01/22 09:52 LRN [id number]) Out-Patient Physical Therapy Visit Information Visit Information Visit Type Treatment Note Visit Start Time 09:05 Visit Stop Time 09:50 Total Visit Minutes 45 Visit Number Evaluation Information Evaluation Date 05/26/22 Precautions Precautions Umbilical hernia, hx of inguinal hernia repairs bilateral 1997 (age 8) PT-OP-B Current Condition Start: 05/23/22 17:25 Freq: Status: Active Protocol: Document 05/26/22 14:42 LRN (Rec: 05/26/22 18:23 LRN [id number]) Current Condition History of Current Condition Onset Date 03/06/22 Current Complaints Concern Diastasis Rectus worsening, umbilical hernia pain, R MB>LB pain. History of Current Condition States after the 1st baby had coning of abdomen, and with 2nd baby has had more coning. Baby was 10#20oz, and his shoulder caught with childbearing and had to manipulate baby inside to get baby delivered. Baby in distress with cord around neck . Since childbirth, the pt is having core instability with abdominal weakness. She has had numbness in the R mid/low back that appears situational in nature, frequently, when getting up/down from sitting and with movement. She is experiencing a bolt of numbness/tingling in the R mid >low back that goes away within a few seconds. Prior Treatments and Tests None Developmental History Developmental History 2, Parity 2. Births on 03/06/[birth year] and 06/29/20. Children ages 23 months and 2. 5 months old. No dx of DR with 1st baby. Generalized LBP Treatment Goals Patient/Caregiver Goals Find out the severity of her DR. Pt education on protecting DR/umbilical hernia. Resolution of R back tingling/ numbness with positional changes (ex-sit<>stand and getting out of bed) and with lifting. Prior Functional Status Baseline Function- ADL's Independent Baseline Function- Mobility Independent Baseline Function- Recreation/Hobbies Exercises: Boxing, swimming weekly, and video cardio workouts daily. Current Functional Impairments (Reported) Functional Limitations- ADL's Not exercising. Personal Factors Other Personal Factors That May Effect Pt is mother of a 23 month yr Therapy/Recovery old and 2.5 month old. She is on maternity leave until 09/04/22. 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 PT-OP-C Subjective Start: 05/23/22 17:25 Freq: Status: Active Protocol: Document 09/01/22 09:05 LRN (Rec: 09/01/22 09:52 LRN [id number]) OP-PT Subjective Patient Comments Patient Comments States she has been working on her ex's and hopes her abdomen is healing. PT-OP-F Manual Assessment Start: 05/23/22 17:25 Freq: Status: Active Protocol: Document 05/26/22 14:42 LRN (Rec: 05/26/22 18:23 LRN [id number]) Manual Assessments Soft Tissue Assessment Soft Tissue Mobility Assessment Pubic symphysis increased separation at caudal half of joint. Finger widths: 3 Above umbilicus Shallow 2. 25 finger widths 2 Above umbilicus shallow 2. 5 finger widths 1 Above umbilicus 2.5 finger widths 1 Below umbilicus 3.0 finger widths 2 Below umbilicus 2.5 finger widths 3 Below umbilicus shallow 2. 5 finger widths 4 Below umbilicus shallow 2. 5 finger widths 5 Below umbilicus shallow 2. 5 finger widths PT-OP-J Posture/Palpation/Skin Start: 05/26/22 18:23 Freq: Status: Active Protocol: Document 09/01/22 09:05 LRN (Rec: 09/01/22 09:52 LRN [id number]) Palpation Assessment Location Abdomen Palpation Location Abdomen Palpation Details 3 Above umbilicus Shallow 2. 0-2.5 finger widths 2 Above umbilicus shallow 2. 25 finger widths 1 Above umbilicus 2.5 finger widths 1 Below umbilicus shallow 2. 5 finger widths 2 Below umbilicus shallow 2. 35 finger widths 3 Below umbilicus very shallow 2.35 finger widths 4 Below umbilicus very shallow 2.25 finger widths 5 Below umbilicus very shallow 2.25 finger widths Pubic symphysis increased separation at caudal half of joint [ End ] PT-OP-K Range of Motion Start: 05/23/22 17:25 Freq: Status: Active Protocol: Document 06/24/22 08:20 LRN (Rec: 06/24/22 09:03 LRN [id number]) Hip Goniometric Range of Motion Hip Right Passive Testing Position Supine Abduction 40 Internal Rotation 60 External Rotation 75 Left Passive Testing Position Supine Abduction 33 Internal Rotation 45 External Rotation 75 PT-OP-M Strength Start: 05/23/22 17:25 Freq: Status: Active Protocol: Document 05/26/22 14:42 LRN (Rec: 05/26/22 18:23 LRN [id number]) Trunk Strength Trunk Manual Muscle Testing Core Stabilization Pt is not able to tolerate resistance of leg lifting due to onset of LE ms spasms. Obvious doming of abdomen is present. Hip Strength Hip Manual Muscle Testing Right Flexion (L2) 3- Fair- Extension (S1) 5 Normal Abduction 5 Normal Adduction 2+ Poor+ External Rotation 3- Fair- Internal Rotation 3+ Fair+ Comments Ms cramp in Quads with leg lift Left Flexion (L2) 3- Fair- Extension (S1) 4 Good External Rotation 3- Fair- Internal Rotation 3+ Fair+ Comments Ms cramp in Quads with leg lift PT-OP-Q Treatments Start: 05/23/22 17:25 Freq: Status: Active Protocol: Document 09/01/22 09:05 LRN (Rec: 09/01/22 09:52 LRN [id number]) Therapeutic Exercises Supine Exercises Piriformis Supine Exercise Name Piriformis Side right Reps/Minutes 2' Hip AB stretch Supine Exercise Name Passive Stretch into Hip AB Side bilateral Reps/Minutes 2' Manual Therapy Treatment Soft Tissue Mobilization Abdomen Body Location Abdomen Body Position Supine Comments 3 Above umbilicus Shallow 2. 0-2.5 finger widths 2 Above umbilicus shallow 2. 25 finger widths 1 Above umbilicus 2.5 finger widths 1 Below umbilicus shallow 2. 5 finger widths 2 Below umbilicus shallow 2. 35 finger widths 3 Below umbilicus very shallow 2.35 finger widths 4 Below umbilicus very shallow 2.25 finger widths 5 Below umbilicus very shallow 2.25 finger widths Pubic symphysis increased separation at caudal half of joint Posterior Low Back Body Location Posterior Low back Mobilization Type Myofascial Release,Sustained Pressure Body Position Prone Comments MFR to abdomen and Posterior LB for rotation, SB Posterior Mid back Body Location Posterior Mid back Mobilization Type Myofascial Release,Sustained Pressure Body Position Prone Comments MFR to abdomen and Posterior LB for rotation, SB External/Internal Obliques Body Location Claude Ext/Int Obliques Mobilization Type Sustained Pressure Intensity/Depth Moderate Body Position Supine PT-OP-T Assessment and Plan Start: 05/23/22 17:25 Freq: Status: Active Protocol: Document 09/01/22 09:05 LRN (Rec: 09/01/22 09:52 LRN [id number]) Physical Therapy Assessment Goals Four Impairment Poor posture with umbilical hernia Short Term Goal (STG) Pt will be educated in proper standing/sitting posture. 06/24/22: Educated pt in proper sitting and standing posture. Used lift under toes for standing correction. STG Duration 06/06/22 (06/06/22: MET GOAL) Field Marketing Manager Goal (LTG) Pt will be able to perform a head lift in supine without doming of abdomen and decreased discomfort at umbilicus. 07/10/22: Pt able to head lift without doming of abdomen. 08/04/22: No umbilical pain with head lift, but pt notes has discomfort when in sitting /standing - holding baby in front pack. LTG Duration 08/24/22 (08/04/22: MET GOAL ) Three Impairment R mid to low back tingling/ numbness Impairment Pt has R mid to LB tingling/ numbness with positional changes, pain rated 3/10. Short Term Goal (STG) Pt will demonstrate improved posture and awareness in sitting and with changes of positions. (07/03/22: Pt sitting more upright in L/S, demonstrates upper thoracic increased kyphosis) (07/17/22: Pt demonstrated minimal postural slump in sitting, and immediately corrected with cuing). STG Duration 07/12/22 (07/17/22: MET GOAL) Field Marketing Manager Goal (LTG) Resolution of R back tingling/ numbness with positional changes (ex-sit<>stand and getting out of bed) and with lifting. 07/25/22: Occurs occasionally . 09/01/22: Occurs with movement, Occasionally: sitting and reached out sit<> stand although less frequent. 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 25 finger widths 2 Above umbilicus shallow 2. 5 finger widths 1 Above umbilicus 2.5 finger widths 1 Below umbilicus 3.0 finger widths 2 Below umbilicus 2.5 finger widths 3 Below umbilicus shallow 2. 5 finger widths 4 Below umbilicus shallow 2. 5 finger widths 5 Below umbilicus shallow 2. 5 finger widths Pubic symphysis increased separation at caudal half of joint Short Term Goal (STG) Pt will be educated in the severity and education of her DR/umbilical hernia. 06/24/22: DR/Umbilical Hernia education. 08/04/22: Educated pt in severity factors for DR STG Duration 06/06/22 (08/04/22: MET GOAL ) Field Marketing Manager Goal (LTG) Pt will be independent in a TA strengthening program without doming of her abdomen (to minimize her DR/symphysis pubic separation), and a pelvic stabilization for symphysis pubic dysfunction. 06/24/22: Pt introduced to K- taping. 08/04/22: Pt choosing not to use K-tape at home. LTG Duration 08/24/22 (08/04/22: DC K- tape goal, not longer appropriate at pt request) One Impairment Lacks appropriate self care HEP Impairment Poor body mechanics with transfer sit<>supine, sit<> stand. Short Term Goal (STG) Pt will be educated in proper body mechanics appropriate for post- DR. (06/06/22: Pt educated in sit<> sup transfer with use of support to abdomen/DR). (07/03/22: Pt educated in proper body mechanics for post - DR). STG Duration 06/06/22 (07/03/22: MET GOAL) [facility] Goal (LTG) Pt will be educated in a self care HEP to include core/ pelvic/hip strengthening. (06/06/22: Pt I/S in TA tightening in sup, and sidelie ). (07/17/22: Pt I/S in core stab of 4pt leg lifts and UE lifts). LTG Duration 08/24/22 (07/17/22: Progressed) Assessment Summary Assessment No significant change to width of DR, but mild improvement in depth of DR. Pt still ; therefore expect progression to be slow. Pt is very tight in back, affecting abdomen and tingling in mid back with reaching and sit<>stand. Pt umbilical hernia is visible; therefore GI mobs may be helpful. Physical Therapy Plan Frequency and Duration Frequency of Treatment 2x/Week Plan of Care Start Date 08/04/22 Plan of Care End Date 10/03/22 Next Visit Focus/Plan Next Note Type Progress Note Next Visit Plan PT after pt approved for therapy with new insurance. Assess PF for pain with intercourse. Manual: (check for hypermobility) for Sacral/ pelvic balancing, DR (QL rotators), umbilical hernia/GI mobs. Ther Ex: Core & hip strengthening. Progress to return to home ex program. HEP: Deep breathing, TA strengthening program, Hip AB & IR stretches, and pelvic stabilization for symphysis pubic dysfunction, & hip strengthening. Modalities for back pain.
--- NOTE | 2022-09-12 17:44 | PT.OTN ---
Current Diagnoses Separation of muscle (nontraumatic), other site (09/12/22) Physical Therapy Treatment Note PT-OP-A Visit Information Start: 05/23/22 17:25 Freq: Status: Active Protocol: Document 09/12/22 09:01 LRN (Rec: 09/12/22 09:52 LRN [id number]) Out-Patient Physical Therapy Visit Information Visit Information Visit Type Progress Note Visit Start Time 09:01 Visit Stop Time 09:49 Total Visit Minutes 48 Visit Number 120 Evaluation Information Evaluation Date 05/26/22 Precautions Precautions Umbilical hernia, hx of inguinal hernia repairs bilateral 1999 (age 8) PT-OP-B Current Condition Start: 05/23/22 17:25 Freq: Status: Active Protocol: Document 05/26/22 14:42 LRN (Rec: 05/26/22 18:23 LRN [id number]) Current Condition History of Current Condition Onset Date 03/06/22 Current Complaints Concern Diastasis Rectus worsening, umbilical hernia pain, R MB>LB pain. History of Current Condition States after the 1st baby had coning of abdomen, and with 2nd baby has had more coning. Baby was 10#20oz, and his shoulder caught with childbearing and had to manipulate baby inside to get baby delivered. Baby in distress with cord around neck . Since childbirth, the pt is having core instability with abdominal weakness. She has had numbness in the R mid/low back that appears situational in nature, frequently, when getting up/down from sitting and with movement. She is experiencing a bolt of numbness/tingling in the R mid >low back that goes away within a few seconds. Prior Treatments and Tests None Developmental History Developmental History 2, Parity 2. Births on 03/06/22 and 06/29/20. Children ages 23 months and 2. 5 months old. No dx of DR with 1st baby. Generalized LBP Treatment Goals Patient/Caregiver Goals Find out the severity of her DR. Pt education on protecting DR/umbilical hernia. Resolution of R back tingling/ numbness with positional changes (ex-sit<>stand and getting out of bed) and with lifting. Prior Functional Status Baseline Function- ADL's Independent Baseline Function- Mobility Independent Baseline Function- Recreation/Hobbies Exercises: Boxing, swimming weekly, and video cardio workouts daily. Current Functional Impairments (Reported) Functional Limitations- ADL's Not exercising. Personal Factors Other Personal Factors That May Effect Pt is mother of a 23 month yr Therapy/Recovery old and 2.5 month old. She is on maternity leave until 09/04/22. 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 PT-OP-C Subjective Start: 05/23/22 17:25 Freq: Status: Active Protocol: Document 09/12/22 09:01 LRN (Rec: 09/12/22 09:52 LRN [id number]) OP-PT Subjective Patient Comments Patient Comments No big changes. Thinks the mid back tingling/numbness, but is more mindful of movement. It occurs time to time, infrequently, 2x/week, less than 1x/day. Pain is 3/10, quick electric shock feeling. Bowels are mostly okay, but bowels are sensitive. Occasionally constipated, usually tracked to lack of fluids and fiber in diet. PT-OP-F Manual Assessment Start: 05/23/22 17:25 Freq: Status: Active Protocol: Document 05/26/22 14:42 LRN (Rec: 05/26/22 18:23 LRN [id number]) Manual Assessments Soft Tissue Assessment Soft Tissue Mobility Assessment Pubic symphysis increased separation at caudal half of joint. Finger widths: 3 Above umbilicus Shallow 2. 25 finger widths 2 Above umbilicus shallow 2. 5 finger widths 1 Above umbilicus 2.5 finger widths 1 Below umbilicus 3.0 finger widths 2 Below umbilicus 2.5 finger widths 3 Below umbilicus shallow 2. 5 finger widths 4 Below umbilicus shallow 2. 5 finger widths 5 Below umbilicus shallow 2. 5 finger widths PT-OP-J Posture/Palpation/Skin Start: 05/26/22 18:23 Freq: Status: Active Protocol: Document 09/12/22 09:01 LRN (Rec: 09/12/22 09:52 LRN [id number]) Palpation Assessment Location Abdomen Palpation Location Abdomen Palpation Details 3 Above umbilicus Shallow 2. 0-2.5 finger widths 2 Above umbilicus shallow 2. 25 finger widths 1 Above umbilicus 2.5 finger widths 1 Below umbilicus shallow 2. 5 finger widths 2 Below umbilicus shallow 2. 35 finger widths 3 Below umbilicus very shallow 2.35 finger widths 4 Below umbilicus very shallow 2.25 finger widths 5 Below umbilicus very very shallow 2.25 finger widths Pubic symphysis mild increased separation at caudal half of joint [ End ] PT-OP-K Range of Motion Start: 05/23/22 17:25 Freq: Status: Active Protocol: Document 06/24/22 08:20 LRN (Rec: 06/24/22 09:03 LRN [id number]) Hip Goniometric Range of Motion Hip Right Passive Testing Position Supine Abduction 40 Internal Rotation 60 External Rotation 75 Left Passive Testing Position Supine Abduction 33 Internal Rotation 45 External Rotation 75 PT-OP-M Strength Start: 05/23/22 17:25 Freq: Status: Active Protocol: Document 05/26/22 14:42 LRN (Rec: 05/26/22 18:23 LRN [id number]) Trunk Strength Trunk Manual Muscle Testing Core Stabilization Pt is not able to tolerate resistance of leg lifting due to onset of LE ms spasms. Obvious doming of abdomen is present. Hip Strength Hip Manual Muscle Testing Right Flexion (L2) 3- Fair- Extension (S1) 5 Normal Abduction 5 Normal Adduction 2+ Poor+ External Rotation 3- Fair- Internal Rotation 3+ Fair+ Comments Ms cramp in Quads with leg lift Left Flexion (L2) 3- Fair- Extension (S1) 4 Good External Rotation 3- Fair- Internal Rotation 3+ Fair+ Comments Ms cramp in Quads with leg lift PT-OP-Q Treatments Start: 05/23/22 17:25 Freq: Status: Active Protocol: Document 09/12/22 09:01 LRN (Rec: 09/12/22 17:14 LRN [id number]) Manual Therapy Treatment Soft Tissue Mobilization Lower Ribs Body Location Lower Ribs Mobilization Type Myofascial Release Intensity/Depth Moderate Body Position Hooklying Comments Inflare/Outflare mob Mid Thoracic Body Location Mid Thoracic Mobilization Type Myofascial Release Intensity/Depth Superficial Body Position Hooklying Comments Flex/Ext Mob Upper Thoracic Body Location Upper Thoracic Mobilization Type Myofascial Release Intensity/Depth Superficial Body Position Hooklying Comments Flex/Ext Mob Abdomen Body Location Abdomen - center, umbilicus Body Position Supine Comments 3 Above umbilicus Very shallow 2.25 finger widths 2 Above umbilicus shallow 2. 25 finger widths 1 Above umbilicus 2.5 finger widths 1 Below umbilicus shallow 2. 5 finger widths 2 Below umbilicus shallow 2. 35 finger widths 3 Below umbilicus very shallow 2.35 finger widths 4 Below umbilicus very shallow 2.25 finger widths 5 Below umbilicus very, very shallow 2.25 finger widths Pubic symphysis palpable separation at caudal half of joint Self-Care/Home Management Treatment Education Other Education Discussed results of recheck, progress towards goals, and discussed new recommended plan of care (POC). Pt agreeable to new POC. Activities Self-Care/Home Management Activities Reviewed and I/S pt to cont core strengthening (TA, trunk rot, sup TA ex's - leg lifts and arm lifts), diet modifications to prevent constipation, proper posturing and body mechanics. PT-OP-T Assessment and Plan Start: 05/23/22 17:25 Freq: Status: Active Protocol: Document 09/12/22 09:01 LRN (Rec: 09/12/22 09:52 LRN [id number]) Physical Therapy Assessment Rehab Potential Rehabilitation Potential Good Evaluation Complexity Number of Personal Factors/Comorbidities 1-2 Number of Body Systems Impaired 4 or More Clinical Presentation at Evaluation Evolving Impairments Impairments Activity Tolerance,Pain, Posture,ROM,Soft Tissue Mobility,Strength Goals Four Impairment Poor posture with umbilical hernia Short Term Goal (STG) Pt will be educated in proper standing/sitting posture. 06/24/22: Educated pt in proper sitting and standing posture. Used lift under toes for standing correction. STG Duration 06/06/22 (06/06/22: MET GOAL) Group Home Goal (LTG) Pt will be able to perform a head lift in supine without doming of abdomen and decreased discomfort at umbilicus. 07/10/22: Pt able to head lift without doming of abdomen. 08/04/22: No umbilical pain with head lift, but pt notes has discomfort when in sitting /standing - holding baby in front pack. LTG Duration 08/24/22 (08/04/22: MET GOAL ) Three Impairment R mid to low back tingling/ numbness Impairment Pt has R mid to LB tingling/ numbness with positional changes, pain rated 3/10. Short Term Goal (STG) Pt will demonstrate improved posture and awareness in sitting and with changes of positions. (07/03/22: Pt sitting more upright in L/S, demonstrates upper thoracic increased kyphosis) (07/17/22: Pt demonstrated minimal postural slump in sitting, and immediately corrected with cuing). STG Duration 07/12/22 (07/17/22: MET GOAL) Molding Fitter Goal (LTG) Resolution of R back tingling/ numbness with positional changes (ex-sit<>stand and getting out of bed) and with lifting. 07/25/22: Occurs occasionally . 09/01/22: Occurs with movement, Occasionally: sitting and reached out sit<> stand although less frequent. 09/12/22: Occurs when getting up from sitting position or when arms are out (reaching or holding baby), when R posterolateral trunk ms are being used. 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 25 finger widths 2 Above umbilicus shallow 2. 5 finger widths 1 Above umbilicus 2.5 finger widths 1 Below umbilicus 3.0 finger widths 2 Below umbilicus 2.5 finger widths 3 Below umbilicus shallow 2. 5 finger widths 4 Below umbilicus shallow 2. 5 finger widths 5 Below umbilicus shallow 2. 5 finger widths Pubic symphysis increased separation at caudal half of joint Short Term Goal (STG) Pt will be educated in the severity and education of her DR/umbilical hernia. 06/24/22: DR/Umbilical Hernia education. 08/04/22: Educated pt in severity factors for DR STG Duration 06/06/22 (08/04/22: MET GOAL ) Group Home Goal (LTG) Pt will be independent in a TA strengthening program without doming of her abdomen (to minimize her DR/symphysis pubic separation), and a pelvic stabilization for symphysis pubic dysfunction. 06/24/22: Pt introduced to K- taping. 08/04/22: Pt choosing not to use K-tape at home. LTG Duration 12/11/22 (08/04/22: DC K- tape goal, not longer appropriate at pt request) One Impairment Lacks appropriate self care HEP Impairment Poor body mechanics with transfer sit<>supine, sit<> stand. Short Term Goal (STG) Pt will be educated in proper body mechanics appropriate for post- (06/06/22: Pt educated in sit<> sup transfer with use of support to abdomen/DR). (07/03/22: Pt educated in proper body mechanics for post - DR). STG Duration 06/06/22 (07/03/22: MET GOAL) Group Home Goal (LTG) Pt will be educated in a self care HEP to include core/ pelvic/hip strengthening. (06/06/22: Pt I/S in TA tightening in sup, and sidelie ). (07/17/22: Pt I/S in core stab of 4pt leg lifts and UE lifts). LTG Duration 12/11/22 (07/17/22: Progressed) Assessment Summary Assessment Pt is ~6 months post- with a 2.5 or less finger width diastasis rectus extending from 1 below sternum to 1 above pubic bone . Her DR is lessening in depth and slightly width. She is still ; therefore she has soft tissue related changes due to her hormonal changes. Her posture and transfer techniques has greatly improved; therefore she is experiencing less of her mid back pain, although when present is still quite alarming and painful to her. Her pubic symphysis pain is less but still present due to a mild separation and weakness of her core, specifically her transverse abdominus and trunk rotator muscles. She has recently been able to show control of her abdomen with no doming on head lift; therefore she is ready to be progressed with core strengthening. I believe she may be ready to also start hip strengthening ex's without onset of pubic symphysis discomfort and dysfunction. The pt will benefit from skilled physical therapy to continue working towards achieving the above stated goals. As expected her rehab program is extended due to her and severity of her Diastasis rectus, and having a busy lifestyle at home with her ~26 month old child and ~6 month old infant. Physical Therapy Plan Frequency and Duration Frequency of Treatment 2x/Week Plan of Care Start Date 09/12/22 Plan of Care End Date 12/11/22 Therapeutic Interventions Therapeutic Interventions Gait Training,Home Exercise Program,Joint Mobilizations, Manual Therapy,Neuromuscular Re-education,Patient/Caregiver Education,Self-Care/Home Management,Soft Tissue Mobilization,Therapeutic Exercises Modalities Cold Pack/Ice Massage,Electric Stimulation,Hot Packs Next Visit Focus/Plan Next Note Type Progress Note Next Visit Plan Continue PT after pt approved for therapy with new insurance . Assess PF for pain with intercourse. Manual: DR (QL rotators), umbilical hernia/GI mobs, as needed-sacral/pelvic balancing . Ther Ex: Core, pelvic & hip strengthening. HEP: Deep breathing, TA strengthening progression program, Hip AB & IR stretches , and pelvic stabilization for symphysis pubic dysfunction, & hip strengthening. Modalities for back pain.
--- NOTE | 2022-09-19 09:19 | PT.OTN ---
Current Diagnoses Separation of muscle (nontraumatic), other site (09/19/22) Physical Therapy Treatment Note PT-OP-A Visit Information Start: 05/23/22 17:25 Freq: Status: Active Protocol: Document 09/19/22 08:21 LRN (Rec: 09/19/22 09:13 LRN [id number]) Out-Patient Physical Therapy Visit Information Visit Information Visit Type Treatment Note Visit Start Time 08:21 Visit Stop Time 09:02 Total Visit Minutes 41 Visit Number 08/24 Evaluation Information Evaluation Date 05/26/22 Precautions Precautions Umbilical hernia, hx of inguinal hernia repairs bilateral 1997 (age 8) PT-OP-B Current Condition Start: 05/23/22 17:25 Freq: Status: Active Protocol: Document 05/26/22 14:42 LRN (Rec: 05/26/22 18:23 LRN [id number]) Current Condition History of Current Condition Onset Date 03/06/22 Current Complaints Concern Diastasis Rectus worsening, umbilical hernia pain, R MB>LB pain. History of Current Condition States after the 1st baby had coning of abdomen, and with 2nd baby has had more coning. Baby was 10#20oz, and his shoulder caught with childbearing and had to manipulate baby inside to get baby delivered. Baby in distress with cord around neck . Since childbirth, the pt is having core instability with abdominal weakness. She has had numbness in the R mid/low back that appears situational in nature, frequently, when getting up/down from sitting and with movement. She is experiencing a bolt of numbness/tingling in the R mid >low back that goes away within a few seconds. Prior Treatments and Tests None Developmental History Developmental History 2, Parity 2. Births on 03/06/22 and 06/29/20. Children ages 23 months and 2. 5 months old. No dx of DR with 1st baby. Generalized LBP Treatment Goals Patient/Caregiver Goals Find out the severity of her DR. Pt education on protecting DR/umbilical hernia. Resolution of R back tingling/ numbness with positional changes (ex-sit<>stand and getting out of bed) and with lifting. Prior Functional Status Baseline Function- ADL's Independent Baseline Function- Mobility Independent Baseline Function- Recreation/Hobbies Exercises: Boxing, swimming weekly, and video cardio workouts daily. Current Functional Impairments (Reported) Functional Limitations- ADL's Not exercising. Personal Factors Other Personal Factors That May Effect Pt is mother of a 23 month yr Therapy/Recovery old and 2.5 month old. She is on maternity leave until 09/04/22. 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 PT-OP-C Subjective Start: 05/23/22 17:25 Freq: Status: Active Protocol: Document 09/19/22 08:21 LRN (Rec: 09/19/22 09:13 LRN [id number]) OP-PT Subjective Patient Comments Patient Comments No change. [place] numbness/ tingling a few times this week . PT-OP-F Manual Assessment Start: 05/23/22 17:25 Freq: Status: Active Protocol: Document 05/26/22 14:42 LRN (Rec: 05/26/22 18:23 LRN [id number]) Manual Assessments Soft Tissue Assessment Soft Tissue Mobility Assessment Pubic symphysis increased separation at caudal half of joint. Finger widths: 3 Above umbilicus Shallow 2. 25 finger widths 2 Above umbilicus shallow 2. 5 finger widths 1 Above umbilicus 2.5 finger widths 1 Below umbilicus 3.0 finger widths 2 Below umbilicus 2.5 finger widths 3 Below umbilicus shallow 2. 5 finger widths 4 Below umbilicus shallow 2. 5 finger widths 5 Below umbilicus shallow 2. 5 finger widths PT-OP-J Posture/Palpation/Skin Start: 05/26/22 18:23 Freq: Status: Active Protocol: Document 09/12/22 09:01 LRN (Rec: 09/12/22 09:52 LRN [id number]) Palpation Assessment Location Abdomen Palpation Location Abdomen Palpation Details 3 Above umbilicus Shallow 2. 0-2.5 finger widths 2 Above umbilicus shallow 2. 25 finger widths 1 Above umbilicus 2.5 finger widths 1 Below umbilicus shallow 2. 5 finger widths 2 Below umbilicus shallow 2. 35 finger widths 3 Below umbilicus very shallow 2.35 finger widths 4 Below umbilicus very shallow 2.25 finger widths 5 Below umbilicus very very shallow 2.25 finger widths Pubic symphysis mild increased separation at caudal half of joint [ End ] PT-OP-K Range of Motion Start: 05/23/22 17:25 Freq: Status: Active Protocol: Document 06/24/22 08:20 LRN (Rec: 06/24/22 09:03 LRN [id number]) Hip Goniometric Range of Motion Hip Right Passive Testing Position Supine Abduction 40 Internal Rotation 60 External Rotation 75 Left Passive Testing Position Supine Abduction 33 Internal Rotation 45 External Rotation 75 PT-OP-M Strength Start: 05/23/22 17:25 Freq: Status: Active Protocol: Document 05/26/22 14:42 LRN (Rec: 05/26/22 18:23 LRN [id number]) Trunk Strength Trunk Manual Muscle Testing Core Stabilization Pt is not able to tolerate resistance of leg lifting due to onset of LE ms spasms. Obvious doming of abdomen is present. Hip Strength Hip Manual Muscle Testing Right Flexion (L2) 3- Fair- Extension (S1) 5 Normal Abduction 5 Normal Adduction 2+ Poor+ External Rotation 3- Fair- Internal Rotation 3+ Fair+ Comments Ms cramp in Quads with leg lift Left Flexion (L2) 3- Fair- Extension (S1) 4 Good External Rotation 3- Fair- Internal Rotation 3+ Fair+ Comments Ms cramp in Quads with leg lift PT-OP-Q Treatments Start: 05/23/22 17:25 Freq: Status: Active Protocol: Document 09/19/22 08:21 LRN (Rec: 09/19/22 09:13 LRN [id number]) Therapeutic Exercises Supine Exercises Diagonal Core strengthening Supine Exercise Name Trunk Rot: Clasp hands, knee roll opp direction Side bilateral Reps/Minutes 6' Manual Therapy Treatment Soft Tissue Mobilization Lower Ribs Body Location Lower L Ribs Rib 7 and floating ribs Mobilization Type Myofascial Release Intensity/Depth Moderate Body Position Hooklying Comments Outflare mob correction Upper Thoracic Body Location Upper Thoracic Mobilization Type Myofascial Release Intensity/Depth Superficial Body Position Hooklying Comments Flex/Ext Mob Abdomen Body Location Abdomen - center, umbilicus, side<>side Mobilization Type Myofascial Release Body Position Supine Comments Instrument assisted with yellow lg cup and plunger. Release with LTR LE mvmt. Release to R side with L LE BKFO. PT-OP-T Assessment and Plan Start: 05/23/22 17:25 Freq: Status: Active Protocol: Document 09/19/22 08:21 LRN (Rec: 09/19/22 09:13 LRN [id number]) Physical Therapy Assessment Goals Four Impairment Poor posture with umbilical hernia Short Term Goal (STG) Pt will be educated in proper standing/sitting posture. 06/24/22: Educated pt in proper sitting and standing posture. Used lift under toes for standing correction. STG Duration 06/06/22 (06/06/22: MET GOAL) Intermediate Goal (LTG) Pt will be able to perform a head lift in supine without doming of abdomen and decreased discomfort at umbilicus. 07/10/22: Pt able to head lift without doming of abdomen. 08/04/22: No umbilical pain with head lift, but pt notes has discomfort when in sitting /standing - holding baby in front pack. LTG Duration 08/24/22 (08/04/22: MET GOAL ) Three Impairment R mid to low back tingling/ numbness Impairment Pt has R mid to LB tingling/ numbness with positional changes, pain rated 3/10. Short Term Goal (STG) Pt will demonstrate improved posture and awareness in sitting and with changes of positions. (07/03/22: Pt sitting more upright in L/S, demonstrates upper thoracic increased kyphosis) (07/17/22: Pt demonstrated minimal postural slump in sitting, and immediately corrected with cuing). STG Duration 07/12/22 (07/17/22: MET GOAL) Hearing Screener Goal (LTG) Resolution of R back tingling/ numbness with positional changes (ex-sit<>stand and getting out of bed) and with lifting. 07/25/22: Occurs occasionally . 09/01/22: Occurs with movement, Occasionally: sitting and reached out sit<> stand although less frequent. 09/12/22: Occurs when getting up from sitting position or when arms are out (reaching or holding baby), when R posterolateral trunk ms are being used. 09/19/22: Not felt getting out of bed for a long time. Has tingling/numbness sith<> stand while holding of baby, and with reaching out with arms or hold a weight out with arms. 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 25 finger widths 2 Above umbilicus shallow 2. 5 finger widths 1 Above umbilicus 2.5 finger widths 1 Below umbilicus 3.0 finger widths 2 Below umbilicus 2.5 finger widths 3 Below umbilicus shallow 2. 5 finger widths 4 Below umbilicus shallow 2. 5 finger widths 5 Below umbilicus shallow 2. 5 finger widths Pubic symphysis increased separation at caudal half of joint Short Term Goal (STG) Pt will be educated in the severity and education of her DR/umbilical hernia. 06/24/22: DR/Umbilical Hernia education. 08/04/22: Educated pt in severity factors for DR STG Duration 06/06/22 (08/04/22: MET GOAL ) Intermediate Goal (LTG) Pt will be independent in a TA strengthening program without doming of her abdomen (to minimize her DR/symphysis pubic separation), and a pelvic stabilization for symphysis pubic dysfunction. 06/24/22: Pt introduced to K- taping. 08/04/22: Pt choosing not to use K-tape at home. LTG Duration 12/11/22 (08/04/22: DC K- tape goal, not longer appropriate at pt request) One Impairment Lacks appropriate self care HEP Impairment Poor body mechanics with transfer sit<>supine, sit<> stand. Short Term Goal (STG) Pt will be educated in proper body mechanics appropriate for post- DR. (06/06/22: Pt educated in sit<> sup transfer with use of support to abdomen/DR). (07/03/22: Pt educated in proper body mechanics for post - DR). STG Duration 06/06/22 (07/03/22: MET GOAL) Hearing Screener Goal (LTG) Pt will be educated in a self care HEP to include core/ pelvic/hip strengthening. (06/06/22: Pt I/S in TA tightening in sup, and sidelie ). (07/17/22: Pt I/S in core stab of 4pt leg lifts and UE lifts). LTG Duration 12/11/22 (07/17/22: Progressed) Assessment Summary Assessment Pt has shown improvement in onset of numbness/tingling of mid/low back with lessening of symptoms (not noticed getting out of bed). Diastasis Rectus opening has lessened overall in depth and slightly width. She is still ; therefore she has soft tissue related changes due to her hormonal changes. Her posture and transfer techniques has greatly improved; therefore she is experiencing less of her mid back pain, although when present is still quite alarming and painful to her. Her pubic symphysis pain is less but still present due to a mild separation and weakness of her transverse abdominus and trunk rotator muscles. She has recently been able to show control of her abdomen with no doming on head lift; therefore she is ready to be progressed with core strengthening. I believe she may be ready to also start hip strengthening ex's without onset of pubic symphysis discomfort and dysfunction. As expected her rehab program is extended due to her and severity of her Diastasis rectus, and having a busy lifestyle at home with her ~26 month old child and ~6 month old . Physical Therapy Plan Frequency and Duration Frequency of Treatment 2x/Week Plan of Care Start Date 09/12/22 Plan of Care End Date 12/11/22 Next Visit Focus/Plan Next Note Type Progress Note Next Visit Plan Check for pt approval for therapy with new insurance. Assess PF for pain with intercourse. Manual: Start abdominal traction in 4 pt and after closing of pelvic bones, DR (QL rotators), umbilical hernia/GI fascial mobs, and as needed-sacral/pelvic balancing. Ther Ex: Core, pelvic & hip strengthening. HEP: Deep breathing, TA strengthening progression program, Hip AB & IR stretches , and pelvic stabilization for symphysis pubic dysfunction, & hip strengthening. Modalities for back pain.
--- NOTE | 2022-09-22 17:35 | PT.OTN ---
Current Diagnoses Separation of muscle (nontraumatic), other site (09/22/22) Physical Therapy Treatment Note PT-OP-A Visit Information Start: 05/23/22 17:25 Freq: Status: Active Protocol: Document 09/22/22 13:01 LRN (Rec: 09/22/22 13:49 LRN [id number]) Out-Patient Physical Therapy Visit Information Visit Information Visit Type Treatment Note Visit Note 2 after PN Visit Start Time 13:01 Visit Stop Time 13:43 Total Visit Minutes 42 Visit Number Evaluation Information Evaluation Date 05/26/22 Precautions Precautions Umbilical hernia, hx of inguinal hernia repairs bilateral 1997 (age 8) PT-OP-B Current Condition Start: 05/23/22 17:25 Freq: Status: Active Protocol: Document 05/26/22 14:42 LRN (Rec: 05/26/22 18:23 LRN [id number]) Current Condition History of Current Condition Onset Date 03/06/22 Current Complaints Concern Diastasis Rectus worsening, umbilical hernia pain, R MB>LB pain. History of Current Condition States after the 1st baby had coning of abdomen, and with 2nd baby has had more coning. Baby was 10#20oz, and his shoulder caught with childbearing and had to manipulate baby inside to get baby delivered. Baby in distress with cord around neck . Since childbirth, the pt is having core instability with abdominal weakness. She has had numbness in the R mid/low back that appears situational in nature, frequently, when getting up/down from sitting and with movement. She is experiencing a bolt of numbness/tingling in the R mid >low back that goes away within a few seconds. Prior Treatments and Tests None Developmental History Developmental History 2, Parity 2. Births on 03/06/[birth year] and 06/29/20. Children ages 23 months and 2. 5 months old. No dx of DR with 1st baby. Generalized LBP Treatment Goals Patient/Caregiver Goals Find out the severity of her DR. Pt education on protecting DR/umbilical hernia. Resolution of R back tingling/ numbness with positional changes (ex-sit<>stand and getting out of bed) and with lifting. Prior Functional Status Baseline Function- ADL's Independent Baseline Function- Mobility Independent Baseline Function- Recreation/Hobbies Exercises: Boxing, swimming weekly, and video cardio workouts daily. Current Functional Impairments (Reported) Functional Limitations- ADL's Not exercising. Personal Factors Other Personal Factors That May Effect Pt is mother of a 23 month yr Therapy/Recovery old and 2.5 month old. She is on maternity leave until 09/04/22. 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 PT-OP-C Subjective Start: 05/23/22 17:25 Freq: Status: Active Protocol: Document 09/22/22 13:01 LRN (Rec: 09/22/22 13:49 LRN [id number]) OP-PT Subjective Patient Comments Patient Comments Slept on back wrong, so the entire R column of back is sore. No pain with intercourse. New insurance is [employer]. PT-OP-F Manual Assessment Start: 05/23/22 17:25 Freq: Status: Active Protocol: Document 05/26/22 14:42 LRN (Rec: 05/26/22 18:23 LRN [id number]) Manual Assessments Soft Tissue Assessment Soft Tissue Mobility Assessment Pubic symphysis increased separation at caudal half of joint. Finger widths: 3 Above umbilicus Shallow 2. 25 finger widths 2 Above umbilicus shallow 2. 5 finger widths 1 Above umbilicus 2.5 finger widths 1 Below umbilicus 3.0 finger widths 2 Below umbilicus 2.5 finger widths 3 Below umbilicus shallow 2. 5 finger widths 4 Below umbilicus shallow 2. 5 finger widths 5 Below umbilicus shallow 2. 5 finger widths PT-OP-J Posture/Palpation/Skin Start: 05/26/22 18:23 Freq: Status: Active Protocol: Document 09/12/22 09:01 LRN (Rec: 09/12/22 09:52 LRN [id number]) Palpation Assessment Location Abdomen Palpation Location Abdomen Palpation Details 3 Above umbilicus Shallow 2. 0-2.5 finger widths 2 Above umbilicus shallow 2. 25 finger widths 1 Above umbilicus 2.5 finger widths 1 Below umbilicus shallow 2. 5 finger widths 2 Below umbilicus shallow 2. 35 finger widths 3 Below umbilicus very shallow 2.35 finger widths 4 Below umbilicus very shallow 2.25 finger widths 5 Below umbilicus very very shallow 2.25 finger widths Pubic symphysis mild increased separation at caudal half of joint [ End ] PT-OP-K Range of Motion Start: 05/23/22 17:25 Freq: Status: Active Protocol: Document 06/24/22 08:20 LRN (Rec: 06/24/22 09:03 LRN [id number]) Hip Goniometric Range of Motion Hip Right Passive Testing Position Supine Abduction 40 Internal Rotation 60 External Rotation 75 Left Passive Testing Position Supine Abduction 33 Internal Rotation 45 External Rotation 75 PT-OP-M Strength Start: 05/23/22 17:25 Freq: Status: Active Protocol: Document 05/26/22 14:42 LRN (Rec: 05/26/22 18:23 LRN [id number]) Trunk Strength Trunk Manual Muscle Testing Core Stabilization Pt is not able to tolerate resistance of leg lifting due to onset of LE ms spasms. Obvious doming of abdomen is present. Hip Strength Hip Manual Muscle Testing Right Flexion (L2) 3- Fair- Extension (S1) 5 Normal Abduction 5 Normal Adduction 2+ Poor+ External Rotation 3- Fair- Internal Rotation 3+ Fair+ Comments Ms cramp in Quads with leg lift Left Flexion (L2) 3- Fair- Extension (S1) 4 Good External Rotation 3- Fair- Internal Rotation 3+ Fair+ Comments Ms cramp in Quads with leg lift PT-OP-Q Treatments Start: 05/23/22 17:25 Freq: Status: Active Protocol: Document 09/22/22 13:01 LRN (Rec: 09/22/22 13:49 LRN [id number]) Manual Therapy Treatment Soft Tissue Mobilization Lower Ribs Body Location Lower L Ribs Rib 7 and floating ribs Mobilization Type Myofascial Release Intensity/Depth Moderate Body Position Hooklying Comments Outflare mob correction Mid Thoracic Body Location Mid Thoracic Mobilization Type Myofascial Release Intensity/Depth Superficial Body Position Hooklying Comments Flex/Ext Mob Abdomen Body Location Abdomen - center, umbilicus, side<>side Mobilization Type Myofascial Release Body Position Supine Comments Release with LTR LE mvmt. Release to L side with Knee rolls to R side. Posterior Low Back Body Location Distraction of abdomen Mobilization Type Manual Lymphatic Drainage Intensity/Depth Moderate Body Position Fwd bent w/hands on plinth External/Internal Obliques Body Location Claude Ext/Int Obliques Mobilization Type Sustained Pressure Intensity/Depth Moderate Body Position Supine Comments With knee rolls R>L and heel slides L>R Joint Mobilizations Closing of Pelvic Bones Joint Cecilia AD x 3 positions, f/b Cecilia AB x 3 positions Body Position Hooklying Reps/Duration 10 SH x 1 each Comments Pt I/S to do as HEP 2x/day. PT-OP-T Assessment and Plan Start: 05/23/22 17:25 Freq: Status: Active Protocol: Document 09/22/22 13:01 LRN (Rec: 09/22/22 13:49 LRN [id number]) Physical Therapy Assessment Goals Four Impairment Poor posture with umbilical hernia Short Term Goal (STG) Pt will be educated in proper standing/sitting posture. 06/24/22: Educated pt in proper sitting and standing posture. Used lift under toes for standing correction. STG Duration 06/06/22 (06/06/22: MET GOAL) Detention Goal (LTG) Pt will be able to perform a head lift in supine without doming of abdomen and decreased discomfort at umbilicus. 07/10/22: Pt able to head lift without doming of abdomen. 08/04/22: No umbilical pain with head lift, but pt notes has discomfort when in sitting /standing - holding baby in front pack. LTG Duration 08/24/22 (08/04/22: MET GOAL ) Three Impairment R mid to low back tingling/ numbness Impairment Pt has R mid to LB tingling/ numbness with positional changes, pain rated 3/10. Short Term Goal (STG) Pt will demonstrate improved posture and awareness in sitting and with changes of positions. (07/03/22: Pt sitting more upright in L/S, demonstrates upper thoracic increased kyphosis) (07/17/22: Pt demonstrated minimal postural slump in sitting, and immediately corrected with cuing). STG Duration 07/12/22 (07/17/22: MET GOAL) Recruiting Assistant Goal (LTG) Resolution of R back tingling/ numbness with positional changes (ex-sit<>stand and getting out of bed) and with lifting. 07/25/22: Occurs occasionally . 09/01/22: Occurs with movement, Occasionally: sitting and reached out sit<> stand although less frequent. 09/12/22: Occurs when getting up from sitting position or when arms are out (reaching or holding baby), when R posterolateral trunk ms are being used. 09/19/22: Not felt getting out of bed for a long time. Has tingling/numbness sith<> stand while holding of baby, and with reaching out with arms or hold a weight out with arms. 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 25 finger widths 2 Above umbilicus shallow 2. 5 finger widths 1 Above umbilicus 2.5 finger widths 1 Below umbilicus 3.0 finger widths 2 Below umbilicus 2.5 finger widths 3 Below umbilicus shallow 2. 5 finger widths 4 Below umbilicus shallow 2. 5 finger widths 5 Below umbilicus shallow 2. 5 finger widths Pubic symphysis increased separation at caudal half of joint Short Term Goal (STG) Pt will be educated in the severity and education of her DR/umbilical hernia. 06/24/22: DR/Umbilical Hernia education. 08/04/22: Educated pt in severity factors for DR STG Duration 06/06/22 (08/04/22: MET GOAL ) Recruiting Assistant Goal (LTG) Pt will be independent in a TA strengthening program without doming of her abdomen (to minimize her DR/symphysis pubic separation), and a pelvic stabilization for symphysis pubic dysfunction. 06/24/22: Pt introduced to K- taping. 08/04/22: Pt choosing not to use K-tape at home. LTG Duration 12/11/22 (08/04/22: DC K- tape goal, not longer appropriate at pt request) One Impairment Lacks appropriate self care HEP Impairment Poor body mechanics with transfer sit<>supine, sit<> stand. Short Term Goal (STG) Pt will be educated in proper body mechanics appropriate for post- DR. (06/06/22: Pt educated in sit<> sup transfer with use of support to abdomen/DR). (07/03/22: Pt educated in proper body mechanics for post - DR). STG Duration 06/06/22 (07/03/22: MET GOAL) Detention Goal (LTG) Pt will be educated in a self care HEP to include core/ pelvic/hip strengthening. (06/06/22: Pt I/S in TA tightening in sup, and sidelie ). (10/13/22: Pt I/S in core stab of 4pt leg lifts and UE lifts). LTG Duration 12/11/22 (07/17/22: Progressed) Assessment Summary Assessment Pt was not tender at pubic symphysis, but mild separation present. Mobility of trunk rotators appear to be improving in mobility on L side following manual therapy. Best postion for abdominal MFR is in standing, leaning over with hands on plinth. Pt will need review of closing of pelvic bones. Umbilical hernia in supine appears to be protuding less in inferior half of umbilicus. Physical Therapy Plan Frequency and Duration Frequency of Treatment 2x/Week Plan of Care Start Date 09/12/22 Plan of Care End Date 12/11/22 Next Visit Focus/Plan Next Note Type Treatment Note Next Visit Plan Check Pubic symphysis closure. Manual: Start abdominal mobs/traction in standing, and after closing of pelvic bones, DR (QL rotators) stretching, umbilical hernia/ GI fascial mobs, and as needed -sacral/pelvic balancing. Ther Ex: Progress core, pelvic & hip strengthening. HEP: Deep breathing, TA strengthening progression program, Hip AB & IR stretches , and pelvic stabilization for symphysis pubic dysfunction, & hip strengthening. Modalities for back pain.
--- NOTE | 2022-10-16 18:17 | PT.OTN ---
Current Diagnoses Separation of muscle (nontraumatic), other site (10/16/22) Physical Therapy Treatment Note PT-OP-A Visit Information Start: 05/23/22 17:25 Freq: Status: Active Protocol: Document 10/16/22 08:15 LRN (Rec: 10/16/22 09:01 LRN [id number]) Out-Patient Physical Therapy Visit Information Visit Information Visit Type Treatment Note Visit Note 3 after PN Visit Start Time 08:15 Visit Stop Time 08:53 Total Visit Minutes 38 Visit Number 120 Evaluation Information Evaluation Date 05/26/22 Precautions Precautions Umbilical hernia, hx of inguinal hernia repairs bilateral 1997 (age 8) PT-OP-B Current Condition Start: 05/23/22 17:25 Freq: Status: Active Protocol: Document 05/26/22 14:42 LRN (Rec: 05/26/22 18:23 LRN [id number]) Current Condition History of Current Condition Onset Date 03/06/22 Current Complaints Concern Diastasis Rectus worsening, umbilical hernia pain, R MB>LB pain. History of Current Condition States after the 1st baby had coning of abdomen, and with 2nd baby has had more coning. Baby was 10#20oz, and his shoulder caught with childbearing and had to manipulate baby inside to get baby delivered. Baby in distress with cord around neck . Since childbirth, the pt is having core instability with abdominal weakness. She has had numbness in the R mid/low back that appears situational in nature, frequently, when getting up/down from sitting and with movement. She is experiencing a bolt of numbness/tingling in the R mid >low back that goes away within a few seconds. Prior Treatments and Tests None Developmental History Developmental History 2, Parity 2. Births on 03/06/22 and 06/29/20. Children ages 23 months and 2. 5 months old. No dx of DR with 1st baby. Generalized LBP Treatment Goals Patient/Caregiver Goals Find out the severity of her DR. Pt education on protecting DR/umbilical hernia. Resolution of R back tingling/ numbness with positional changes (ex-sit<>stand and getting out of bed) and with lifting. Prior Functional Status Baseline Function- ADL's Independent Baseline Function- Mobility Independent Baseline Function- Recreation/Hobbies Exercises: Boxing, swimming weekly, and video cardio workouts daily. Current Functional Impairments (Reported) Functional Limitations- ADL's Not exercising. Personal Factors Other Personal Factors That May Effect Pt is mother of a 23 month yr Therapy/Recovery old and 2.5 month old. She is on maternity leave until 09/04/22. 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 PT-OP-C Subjective Start: 05/23/22 17:25 Freq: Status: Active Protocol: Document 10/16/22 08:15 LRN (Rec: 10/16/22 09:01 LRN [id number]) OP-PT Subjective Patient Comments Patient Comments Family just recovered from Covid. Starting to get back into ex's with a gap of no ex' s. Having no worsening sympotms. Mid to low back tingling still present sit<> stand and with reaching outward. No PUbic Pain. PT-OP-F Manual Assessment Start: 05/23/22 17:25 Freq: Status: Active Protocol: Document 05/26/22 14:42 LRN (Rec: 05/26/22 18:23 LRN [id number]) Manual Assessments Soft Tissue Assessment Soft Tissue Mobility Assessment Pubic symphysis increased separation at caudal half of joint. Finger widths: 3 Above umbilicus Shallow 2. 25 finger widths 2 Above umbilicus shallow 2. 5 finger widths 1 Above umbilicus 2.5 finger widths 1 Below umbilicus 3.0 finger widths 2 Below umbilicus 2.5 finger widths 3 Below umbilicus shallow 2. 5 finger widths 4 Below umbilicus shallow 2. 5 finger widths 5 Below umbilicus shallow 2. 5 finger widths PT-OP-J Posture/Palpation/Skin Start: 05/26/22 18:23 Freq: Status: Active Protocol: Document 09/12/22 09:01 LRN (Rec: 09/12/22 09:52 LRN [id number]) Palpation Assessment Location Abdomen Palpation Location Abdomen Palpation Details 3 Above umbilicus Shallow 2. 0-2.5 finger widths 2 Above umbilicus shallow 2. 25 finger widths 1 Above umbilicus 2.5 finger widths 1 Below umbilicus shallow 2. 5 finger widths 2 Below umbilicus shallow 2. 35 finger widths 3 Below umbilicus very shallow 2.35 finger widths 4 Below umbilicus very shallow 2.25 finger widths 5 Below umbilicus very very shallow 2.25 finger widths Pubic symphysis mild increased separation at caudal half of joint [ End ] PT-OP-K Range of Motion Start: 05/23/22 17:25 Freq: Status: Active Protocol: Document 06/24/22 08:20 LRN (Rec: 06/24/22 09:03 LRN [id number]) Hip Goniometric Range of Motion Hip Right Passive Testing Position Supine Abduction 40 Internal Rotation 60 External Rotation 75 Left Passive Testing Position Supine Abduction 33 Internal Rotation 45 External Rotation 75 PT-OP-M Strength Start: 05/23/22 17:25 Freq: Status: Active Protocol: Document 05/26/22 14:42 LRN (Rec: 05/26/22 18:23 LRN [id number]) Trunk Strength Trunk Manual Muscle Testing Core Stabilization Pt is not able to tolerate resistance of leg lifting due to onset of LE ms spasms. Obvious doming of abdomen is present. Hip Strength Hip Manual Muscle Testing Right Flexion (L2) 3- Fair- Extension (S1) 5 Normal Abduction 5 Normal Adduction 2+ Poor+ External Rotation 3- Fair- Internal Rotation 3+ Fair+ Comments Ms cramp in Quads with leg lift Left Flexion (L2) 3- Fair- Extension (S1) 4 Good External Rotation 3- Fair- Internal Rotation 3+ Fair+ Comments Ms cramp in Quads with leg lift PT-OP-Q Treatments Start: 05/23/22 17:25 Freq: Status: Active Protocol: Document 10/16/22 08:15 LRN (Rec: 10/16/22 09:01 LRN [id number]) Therapeutic Exercises Sitting Exercises Scap protraction Sitting Exercise Name Scap protraction/retraction ( chest press plus) Side bilateral Chest press Sitting Exercise Name Chest press Side bilateral Reps/Minutes 10x Standing Exercises Wood Chop Standing Exercise Name Wood Chop trunk rot Side bilateral Equipment Used Lev 1 TB Reps/Minutes 15x Golf Swing Standing Exercise Name Golf Swing trunk rot Side bilateral Equipment Used Lev 1 TB Reps/Minutes 15x Row Standing Exercise Name Row Side bilateral Equipment Used Lev 1 TB Reps/Minutes 15x Press outs for trunk rot Standing Exercise Name Press outs for trunk rot Side bilateral Equipment Used Lev 1 TB Reps/Minutes 10x Trunk Rot Standing Exercise Name Trunk Rot Side bilateral Equipment Used Lev 1 TB Reps/Minutes 10x Paloff Press Standing Exercise Name Paloff Pres Side bilateral Equipment Used Lev 1 TB Reps/Minutes 10x Manual Therapy Treatment Soft Tissue Mobilization Abdomen Body Location Abdomen - center, umbilicus, side<>side Mobilization Type Myofascial Release Body Position Standing Comments Adominal traction standing and in 4 pt. Release with LTR LE mvmt. Release to L side with Knee rolls to R side. Joint Mobilizations Closing of Pelvic Bones Joint Cecilia AD x 3 positions, f/b Cecilia AB x 3 positions Body Position Hooklying Reps/Duration 10 SH x 1 each Comments Today routine: Cecilia AD f/b AB , then Cecilia AD x 2 at different widths f/b AB at different widths. PT-OP-T Assessment and Plan Start: 05/23/22 17:25 Freq: Status: Active Protocol: Document 10/16/22 08:15 LRN (Rec: 10/16/22 09:01 LRN [id number]) Physical Therapy Assessment Goals Four Impairment Poor posture with umbilical hernia Short Term Goal (STG) Pt will be educated in proper standing/sitting posture. 06/24/22: Educated pt in proper sitting and standing posture. Used lift under toes for standing correction. STG Duration 06/06/22 (06/06/22: MET GOAL) Goldsmith Apprentice Goal (LTG) Pt will be able to perform a head lift in supine without doming of abdomen and decreased discomfort at umbilicus. 07/10/22: Pt able to head lift without doming of abdomen. 08/04/22: No umbilical pain with head lift, but pt notes has discomfort when in sitting /standing - holding baby in front pack. LTG Duration 08/24/22 (08/04/22: MET GOAL ) Three Impairment R mid to low back tingling/ numbness Impairment Pt has R mid to LB tingling/ numbness with positional changes, pain rated 3/10. Short Term Goal (STG) Pt will demonstrate improved posture and awareness in sitting and with changes of positions. (07/03/22: Pt sitting more upright in L/S, demonstrates upper thoracic increased kyphosis) (07/17/22: Pt demonstrated minimal postural slump in sitting, and immediately corrected with cuing). STG Duration 07/12/22 (07/17/22: MET GOAL) Goldsmith Apprentice Goal (LTG) Resolution of R back tingling/ numbness with positional changes (ex-sit<>stand and getting out of bed) and with lifting. 10/21/22: Occurs occasionally . 09/01/22: Occurs with movement, Occasionally: sitting and reached out sit<> stand although less frequent. 09/12/22: Occurs when getting up from sitting position or when arms are out (reaching or holding baby), when R posterolateral trunk ms are being used. 09/19/22: Not felt getting out of bed for a long time. Has tingling/numbness sith<> stand while holding of baby, and with reaching out with arms or hold a weight out with arms. 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 25 finger widths 2 Above umbilicus shallow 2. 5 finger widths 1 Above umbilicus 2.5 finger widths 1 Below umbilicus 3.0 finger widths 2 Below umbilicus 2.5 finger widths 3 Below umbilicus shallow 2. 5 finger widths 4 Below umbilicus shallow 2. 5 finger widths 5 Below umbilicus shallow 2. 5 finger widths Pubic symphysis increased separation at caudal half of joint Short Term Goal (STG) Pt will be educated in the severity and education of her DR/umbilical hernia. 06/24/22: DR/Umbilical Hernia education. 08/04/22: Educated pt in severity factors for DR STG Duration 06/06/22 (08/04/22: MET GOAL ) Goldsmith Apprentice Goal (LTG) Pt will be independent in a TA strengthening program without doming of her abdomen (to minimize her DR/symphysis pubic separation), and a pelvic stabilization for symphysis pubic dysfunction. 06/24/22: Pt introduced to K- taping. 08/04/22: Pt choosing not to use K-tape at home. LTG Duration 12/11/22 (08/04/22: DC K- tape goal, not longer appropriate at pt request) One Impairment Lacks appropriate self care HEP Impairment Poor body mechanics with transfer sit<>supine, sit<> stand. Short Term Goal (STG) Pt will be educated in proper body mechanics appropriate for post- DR. (06/06/22: Pt educated in sit<> sup transfer with use of support to abdomen/DR). (07/03/22: Pt educated in proper body mechanics for post - DR). STG Duration 06/06/22 (07/03/22: MET GOAL) Goldsmith Apprentice Goal (LTG) Pt will be educated in a self care HEP to include core/ pelvic/hip strengthening. (06/06/22: Pt I/S in TA tightening in sup, and sidelie ). (07/17/22: Pt I/S in core stab of 4pt leg lifts and UE lifts). LTG Duration 12/11/22 (07/17/22: Progressed) Assessment Summary Assessment Able to modify Closing of Pelvis for pt to do without pain. Pt able to perform all trunk strengthening ex's without onset of tingling/pain in the back. Able to get abdominal mob, but no reports of significant change during stretch felt. In 4-pt for abdominal mobs, pt demonstrated poor mid thoracic /upper lumbar extension mobility. Physical Therapy Plan Frequency and Duration Frequency of Treatment 2x/Week Plan of Care Start Date 09/12/22 Plan of Care End Date 12/11/22 Next Visit Focus/Plan Next Note Type Treatment Note Next Visit Plan Check Pubic symphysis closure. Assess response to abdominal mobs/traction in standing. Manual: DR (QL rotators) stretching, umbilical hernia/ GI fascial mobs, and as needed -sacral/pelvic balancing. Ther Ex: Progress core, pelvic & hip strengthening. HEP: Monitor Deep breathing, Improve lower T/S & upper L/S extension, TA strengthening progression program, Hip AB & IR stretches, and pelvic stabilization for symphysis pubic dysfunction, & hip strengthening. Modalities (ESTIM) for back pain.
--- NOTE | 2022-10-27 16:54 | PT.OTN ---
Current Diagnoses Separation of muscle (nontraumatic), other site (10/27/22) Physical Therapy Treatment Note PT-OP-A Visit Information Start: 05/23/22 17:25 Freq: Status: Active Protocol: Document 10/27/22 14:34 LRN (Rec: 10/27/22 16:51 LRN [id number]) Out-Patient Physical Therapy Visit Information Visit Information Visit Type Treatment Note Visit Note 4 after PN Visit Start Time 14:34 Visit Stop Time 15:19 Total Visit Minutes 45 Visit Number [id number] Evaluation Information Evaluation Date 05/26/22 Precautions Precautions Umbilical hernia, hx of inguinal hernia repairs bilateral 1997 (age 8) PT-OP-B Current Condition Start: 05/23/22 17:25 Freq: Status: Active Protocol: Document 05/26/22 14:42 LRN (Rec: 05/26/22 18:23 LRN [id number]) Current Condition History of Current Condition Onset Date 03/06/22 Current Complaints Concern Diastasis Rectus worsening, umbilical hernia pain, R MB>LB pain. History of Current Condition States after the 1st baby had coning of abdomen, and with 2nd baby has had more coning. Baby was 10#20oz, and his shoulder caught with childbearing and had to manipulate baby inside to get baby delivered. Baby in distress with cord around neck . Since childbirth, the pt is having core instability with abdominal weakness. She has had numbness in the R mid/low back that appears situational in nature, frequently, when getting up/down from sitting and with movement. She is experiencing a bolt of numbness/tingling in the R mid >low back that goes away within a few seconds. Prior Treatments and Tests None Developmental History Developmental History 2, Parity 2. Births on 03/06/[birth year] and 06/29/20. Children ages 23 months and 2. 5 months old. No dx of DR with 1st baby. Generalized LBP Treatment Goals Patient/Caregiver Goals Find out the severity of her DR. Pt education on protecting DR/umbilical hernia. Resolution of R back tingling/ numbness with positional changes (ex-sit<>stand and getting out of bed) and with lifting. Prior Functional Status Baseline Function- ADL's Independent Baseline Function- Mobility Independent Baseline Function- Recreation/Hobbies Exercises: Boxing, swimming weekly, and video cardio workouts daily. Current Functional Impairments (Reported) Functional Limitations- ADL's Not exercising. Personal Factors Other Personal Factors That May Effect Pt is mother of a 23 month yr Therapy/Recovery old and 2.5 month old. She is on maternity leave until 09/04/22. 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 PT-OP-C Subjective Start: 05/23/22 17:25 Freq: Status: Active Protocol: Document 10/27/22 14:34 LRN (Rec: 10/27/22 16:51 LRN [id number]) OP-PT Subjective Patient Comments Patient Comments Did good after last time, states she hasn't noticed the tingling in the mid back since last session. Has been making sure she hasn't done knee squeezes too aggressively and her pubic area hasn't hurt like it was. States she carried her son in front for <20' and felt really nauseious bad in front abdominal region for a few hours, but felt better the next day. PT-OP-F Manual Assessment Start: 05/23/22 17:25 Freq: Status: Active Protocol: Document 05/26/22 14:42 LRN (Rec: 05/26/22 18:23 LRN [id number]) Manual Assessments Soft Tissue Assessment Soft Tissue Mobility Assessment Pubic symphysis increased separation at caudal half of joint. Finger widths: 3 Above umbilicus Shallow 2. 25 finger widths 2 Above umbilicus shallow 2. 5 finger widths 1 Above umbilicus 2.5 finger widths 1 Below umbilicus 3.0 finger widths 2 Below umbilicus 2.5 finger widths 3 Below umbilicus shallow 2. 5 finger widths 4 Below umbilicus shallow 2. 5 finger widths 5 Below umbilicus shallow 2. 5 finger widths PT-OP-J Posture/Palpation/Skin Start: 05/26/22 18:23 Freq: Status: Active Protocol: Document 09/12/22 09:01 LRN (Rec: 09/12/22 09:52 LRN [id number]) Palpation Assessment Location Abdomen Palpation Location Abdomen Palpation Details 3 Above umbilicus Shallow 2. 0-2.5 finger widths 2 Above umbilicus shallow 2. 25 finger widths 1 Above umbilicus 2.5 finger widths 1 Below umbilicus shallow 2. 5 finger widths 2 Below umbilicus shallow 2. 35 finger widths 3 Below umbilicus very shallow 2.35 finger widths 4 Below umbilicus very shallow 2.25 finger widths 5 Below umbilicus very very shallow 2.25 finger widths Pubic symphysis mild increased separation at caudal half of joint [ End ] PT-OP-K Range of Motion Start: 05/23/22 17:25 Freq: Status: Active Protocol: Document 06/24/22 08:20 LRN (Rec: 06/24/22 09:03 LRN [id number]) Hip Goniometric Range of Motion Hip Right Passive Testing Position Supine Abduction 40 Internal Rotation 60 External Rotation 75 Left Passive Testing Position Supine Abduction 33 Internal Rotation 45 External Rotation 75 PT-OP-M Strength Start: 05/23/22 17:25 Freq: Status: Active Protocol: Document 05/26/22 14:42 LRN (Rec: 05/26/22 18:23 LRN [id number]) Trunk Strength Trunk Manual Muscle Testing Core Stabilization Pt is not able to tolerate resistance of leg lifting due to onset of LE ms spasms. Obvious doming of abdomen is present. Hip Strength Hip Manual Muscle Testing Right Flexion (L2) 3- Fair- Extension (S1) 5 Normal Abduction 5 Normal Adduction 2+ Poor+ External Rotation 3- Fair- Internal Rotation 3+ Fair+ Comments Ms cramp in Quads with leg lift Left Flexion (L2) 3- Fair- Extension (S1) 4 Good External Rotation 3- Fair- Internal Rotation 3+ Fair+ Comments Ms cramp in Quads with leg lift PT-OP-Q Treatments Start: 05/23/22 17:25 Freq: Status: Active Protocol: Document 10/27/22 14:34 LRN (Rec: 10/27/22 16:51 LRN [id number]) Therapeutic Exercises Standing Exercises Chest Press Standing Exercise Name Chest Press Side bilateral Equipment Used Lev 2 TB Reps/Minutes 15x Comments Much cuing TA tight, PPT, chest over hips Wood Chop Standing Exercise Name Wood Chop trunk rot Side bilateral Equipment Used Lev 2 TB Reps/Minutes 15x 2 Golf Swing Standing Exercise Name Golf Swing trunk rot Side bilateral Equipment Used Lev 2 TB Reps/Minutes 15x 2 Row Standing Exercise Name Row Side bilateral Equipment Used Lev 2 TB Reps/Minutes 15x Paloff Press Standing Exercise Name Paloff Pres Side bilateral Equipment Used Lev 2 TB Reps/Minutes 15x Manual Therapy Treatment Soft Tissue Mobilization Lower Ribs Body Location Lower L Ribs Rib 7 and floating ribs Mobilization Type Myofascial Release Intensity/Depth Moderate Body Position Hooklying Abdomen Body Location Abdomen - center, umbilicus, side<>side Mobilization Type Myofascial Release Body Position Standing Comments Adominal traction standing. Lack of time to do in 4 pt although previous release in supine, with LTR LE mvmt & release to L side with Knee rolls to R side. Posterior Low Back Body Location Distraction of abdomen Mobilization Type Manual Lymphatic Drainage Intensity/Depth Moderate Body Position Fwd bent w/hands on plinth PT-OP-T Assessment and Plan Start: 05/23/22 17:25 Freq: Status: Active Protocol: Document 10/27/22 14:34 LRN (Rec: 10/27/22 16:51 LRN [id number]) Physical Therapy Assessment Goals Four Impairment Poor posture with umbilical hernia Short Term Goal (STG) Pt will be educated in proper standing/sitting posture. 06/24/22: Educated pt in proper sitting and standing posture. Used lift under toes for standing correction. STG Duration 06/06/22 (06/06/22: MET GOAL) Home Care Aide Goal (LTG) Pt will be able to perform a head lift in supine without doming of abdomen and decreased discomfort at umbilicus. 07/10/22: Pt able to head lift without doming of abdomen. 08/04/22: No umbilical pain with head lift, but pt notes has discomfort when in sitting /standing - holding baby in front pack. LTG Duration 08/24/22 (08/04/22: MET GOAL ) Three Impairment R mid to low back tingling/ numbness Impairment Pt has R mid to LB tingling/ numbness with positional changes, pain rated 3/10. Short Term Goal (STG) Pt will demonstrate improved posture and awareness in sitting and with changes of positions. (07/03/22: Pt sitting more upright in L/S, demonstrates upper thoracic increased kyphosis) (07/17/22: Pt demonstrated minimal postural slump in sitting, and immediately corrected with cuing). STG Duration 07/12/22 (07/17/22: MET GOAL) Home Care Aide Goal (LTG) Resolution of R back tingling/ numbness with positional changes (ex-sit<>stand and getting out of bed) and with lifting. 07/25/22: Occurs occasionally . 09/01/22: Occurs with movement, Occasionally: sitting and reached out sit<> stand although less frequent. 09/12/22: Occurs when getting up from sitting position or when arms are out (reaching or holding baby), when R posterolateral trunk ms are being used. 09/19/22: Not felt getting out of bed for a long time. Has tingling/numbness sith<> stand while holding of baby, and with reaching out with arms or hold a weight out with arms. 10/27/22: No pain this past week for first time. 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 25 finger widths 2 Above umbilicus shallow 2. 5 finger widths 1 Above umbilicus 2.5 finger widths 1 Below umbilicus 3.0 finger widths 2 Below umbilicus 2.5 finger widths 3 Below umbilicus shallow 2. 5 finger widths 4 Below umbilicus shallow 2. 5 finger widths 5 Below umbilicus shallow 2. 5 finger widths Pubic symphysis increased separation at caudal half of joint Short Term Goal (STG) Pt will be educated in the severity and education of her DR/umbilical hernia. 06/24/22: DR/Umbilical Hernia education. 08/04/22: Educated pt in severity factors for DR STG Duration 06/06/22 (08/04/22: MET GOAL ) Home Care Aide Goal (LTG) Pt will be independent in a TA strengthening program without doming of her abdomen (to minimize her DR/symphysis pubic separation), and a pelvic stabilization for symphysis pubic dysfunction. 06/24/22: Pt introduced to K- taping. 08/04/22: Pt choosing not to use K-tape at home. LTG Duration 12/11/22 (08/04/22: DC K- tape goal, not longer appropriate at pt request) One Impairment Lacks appropriate self care HEP Impairment Poor body mechanics with transfer sit<>supine, sit<> stand. Short Term Goal (STG) Pt will be educated in proper body mechanics appropriate for post- DR. (06/06/22: Pt educated in sit<> sup transfer with use of support to abdomen/DR). (07/03/22: Pt educated in proper body mechanics for post - DR). STG Duration 06/06/22 (07/03/22: MET GOAL) Home Care Aide Goal (LTG) Pt will be educated in a self care HEP to include core/ pelvic/hip strengthening. (06/06/22: Pt I/S in TA tightening in sup, and sidelie ). (07/17/22: Pt I/S in core stab of 4pt leg lifts and UE lifts). LTG Duration 12/11/22 (07/17/22: Progressed) Assessment Summary Assessment + reponse to last treatment with no c/o tingling in upper> mid back since last treatment. Pt able to perform trunk strengthening without doming, but umbilicus hernia present without change during exercises. Physical Therapy Plan Frequency and Duration Frequency of Treatment 2x/Week Plan of Care Start Date 09/12/22 Plan of Care End Date 12/11/22 Next Visit Focus/Plan Next Note Type Treatment Note Next Visit Plan Check Pubic symphysis closure. Add Hip AB & IR stretches Assess response to abdominal mobs/traction in standing. Manual: (QL rotators) stretching, umbilical hernia/ GI fascial mobs, and as needed -sacral/pelvic balancing. Ther Ex: Progress core, pelvic & hip strengthening. HEP: Monitor Deep breathing, Improve trunk extension above lower lumbar region ~ L3-L5, TA strengthening progression program, and pelvic stabilization for symphysis pubic dysfunction, & hip strengthening. Modalities (ESTIM) for back pain.
--- NOTE | 2022-11-07 17:24 | PT.OTN ---
Current Diagnoses Separation of muscle (nontraumatic), other site (11/07/22) Physical Therapy Treatment Note PT-OP-A Visit Information Start: 05/23/22 17:25 Freq: Status: Active Protocol: Document 11/07/22 09:06 LRN (Rec: 11/07/22 10:32 LRN [id number]) Out-Patient Physical Therapy Visit Information Visit Information Visit Type Treatment Note Visit Note 5 after PN Visit Start Time 09:06 Visit Stop Time 09:44 Total Visit Minutes 38 Visit Number [id number] Evaluation Information Evaluation Date 05/26/22 Precautions Precautions Umbilical hernia, hx of inguinal hernia repairs bilateral 1997 (age 8) PT-OP-B Current Condition Start: 05/23/22 17:25 Freq: Status: Active Protocol: Document 05/26/22 14:42 LRN (Rec: 05/26/22 18:23 LRN [id number]) Current Condition History of Current Condition Onset Date 03/06/22 Current Complaints Concern Diastasis Rectus worsening, umbilical hernia pain, R MB>LB pain. History of Current Condition States after the 1st baby had coning of abdomen, and with 2nd baby has had more coning. Baby was 10#20oz, and his shoulder caught with childbearing and had to manipulate baby inside to get baby delivered. Baby in distress with cord around neck . Since childbirth, the pt is having core instability with abdominal weakness. She has had numbness in the R mid/low back that appears situational in nature, frequently, when getting up/down from sitting and with movement. She is experiencing a bolt of numbness/tingling in the R mid >low back that goes away within a few seconds. Prior Treatments and Tests None Developmental History Developmental History 2, Parity 2. Births on 03/06/22 and 06/29/20. Children ages 23 months and 2. 5 months old. No dx of DR with 1st baby. Generalized LBP Treatment Goals Patient/Caregiver Goals Find out the severity of her DR. Pt education on protecting DR/umbilical hernia. Resolution of R back tingling/ numbness with positional changes (ex-sit<>stand and getting out of bed) and with lifting. Prior Functional Status Baseline Function- ADL's Independent Baseline Function- Mobility Independent Baseline Function- Recreation/Hobbies Exercises: Boxing, swimming weekly, and video cardio workouts daily. Current Functional Impairments (Reported) Functional Limitations- ADL's Not exercising. Personal Factors Other Personal Factors That May Effect Pt is mother of a 23 month yr Therapy/Recovery old and 2.5 month old. She is on maternity leave until 09/04/22. 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 PT-OP-C Subjective Start: 05/23/22 17:25 Freq: Status: Active Protocol: Document 11/07/22 09:06 LRN (Rec: 11/07/22 10:32 LRN [id number]) OP-PT Subjective Patient Comments Patient Comments States after the last session she noticed weakness of her core. Happened 1x this week with less intensity having pain in the mid back sharp pain. Hardly happens, even with holding babhy. PT-OP-F Manual Assessment Start: 05/23/22 17:25 Freq: Status: Active Protocol: Document 05/26/22 14:42 LRN (Rec: 05/26/22 18:23 LRN [id number]) Manual Assessments Soft Tissue Assessment Soft Tissue Mobility Assessment Pubic symphysis increased separation at caudal half of joint. Finger widths: 3 Above umbilicus Shallow 2. 25 finger widths 2 Above umbilicus shallow 2. 5 finger widths 1 Above umbilicus 2.5 finger widths 1 Below umbilicus 3.0 finger widths 2 Below umbilicus 2.5 finger widths 3 Below umbilicus shallow 2. 5 finger widths 4 Below umbilicus shallow 2. 5 finger widths 5 Below umbilicus shallow 2. 5 finger widths PT-OP-J Posture/Palpation/Skin Start: 05/26/22 18:23 Freq: Status: Active Protocol: Document 11/07/22 09:06 LRN (Rec: 11/07/22 17:16 LRN [id number]) Palpation Assessment Location Abdomen Palpation Location Abdomen Palpation Details 3 Above umbilicus Shallow 2. 5 finger widths 2 Above umbilicus shallow 2. 5 finger widths 1 Above umbilicus 2.5 finger widths 1 Below umbilicus shallow 2. 5 finger widths, less deep than previous, no tenderness. 2 Below umbilicus shallow 2. 5 finger widths 3 Below umbilicus very shallow 2.5 finger widths 4 Below umbilicus very shallow 2.25 finger widths 5 Below umbilicus very very shallow 1.5 finger widths, shallow PT-OP-K Range of Motion Start: 05/23/22 17:25 Freq: Status: Active Protocol: Document 06/24/22 08:20 LRN (Rec: 06/24/22 09:03 LRN [id number]) Hip Goniometric Range of Motion Hip Right Passive Testing Position Supine Abduction 40 Internal Rotation 60 External Rotation 75 Left Passive Testing Position Supine Abduction 33 Internal Rotation 45 External Rotation 75 PT-OP-M Strength Start: 05/23/22 17:25 Freq: Status: Active Protocol: Document 05/26/22 14:42 LRN (Rec: 05/26/22 18:23 LRN [id number]) Trunk Strength Trunk Manual Muscle Testing Core Stabilization Pt is not able to tolerate resistance of leg lifting due to onset of LE ms spasms. Obvious doming of abdomen is present. Hip Strength Hip Manual Muscle Testing Right Flexion (L2) 3- Fair- Extension (S1) 5 Normal Abduction 5 Normal Adduction 2+ Poor+ External Rotation 3- Fair- Internal Rotation 3+ Fair+ Comments Ms cramp in Quads with leg lift Left Flexion (L2) 3- Fair- Extension (S1) 4 Good External Rotation 3- Fair- Internal Rotation 3+ Fair+ Comments Ms cramp in Quads with leg lift PT-OP-Q Treatments Start: 05/23/22 17:25 Freq: Status: Active Protocol: Document 11/07/22 09:06 LRN (Rec: 11/07/22 10:32 LRN [id number]) Manual Therapy Treatment Soft Tissue Mobilization Hip IR's Body Location Claude Hip IR's Intensity/Depth Moderate Body Position Prone Comments CAL stretch to Hip IR's. Sacral Balancing Body Location Sacrum, Ischium's Mobilization Type Myofascial Release Intensity/Depth Moderate Body Position Prone Hip AD's Body Location Claude Hip AD's Mobilization Type Other Body Position Prone Comments MFR & CAL stretch to Hip AD's. Abdomen Body Location Abdomen - center, umbilicus, side<>side Mobilization Type Myofascial Release Body Position 4 pt, 4 pt in standing, forearm/feet. Comments Adominal traction standing. previous release in supine, with LTR LE mvmt & release to L side with Knee rolls to R side. PT-OP-T Assessment and Plan Start: 05/23/22 17:25 Freq: Status: Active Protocol: Document 11/07/22 09:06 LRN (Rec: 11/07/22 10:32 LRN [id number]) Physical Therapy Assessment Goals Four Impairment Poor posture with umbilical hernia Short Term Goal (STG) Pt will be educated in proper standing/sitting posture. 06/24/22: Educated pt in proper sitting and standing posture. Used lift under toes for standing correction. STG Duration 06/06/22 (06/06/22: MET GOAL) Corporate Concierge Goal (LTG) Pt will be able to perform a head lift in supine without doming of abdomen and decreased discomfort at umbilicus. 07/10/22: Pt able to head lift without doming of abdomen. 08/04/22: No umbilical pain with head lift, but pt notes has discomfort when in sitting /standing - holding baby in front pack. LTG Duration 08/24/22 (08/04/22: MET GOAL ) Three Impairment R mid to low back tingling/ numbness Impairment Pt has R mid to LB tingling/ numbness with positional changes, pain rated 3/10. Short Term Goal (STG) Pt will demonstrate improved posture and awareness in sitting and with changes of positions. (07/03/22: Pt sitting more upright in L/S, demonstrates upper thoracic increased kyphosis) (07/17/22: Pt demonstrated minimal postural slump in sitting, and immediately corrected with cuing). STG Duration 07/12/22 (07/17/22: MET GOAL) Shelter Goal (LTG) Resolution of R back tingling/ numbness with positional changes (ex-sit<>stand and getting out of bed) and with lifting. 07/25/22: Occurs occasionally . 09/01/22: Occurs with movement, Occasionally: sitting and reached out sit<> stand although less frequent. 09/12/22: Occurs when getting up from sitting position or when arms are out (reaching or holding baby), when R posterolateral trunk ms are being used. 09/19/22: Not felt getting out of bed for a long time. Has tingling/numbness sith<> stand while holding of baby, and with reaching out with arms or hold a weight out with arms. 10/27/22: No pain this past week for first time. 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 25 finger widths 2 Above umbilicus shallow 2. 5 finger widths 1 Above umbilicus 2.5 finger widths 1 Below umbilicus 3.0 finger widths 2 Below umbilicus 2.5 finger widths 3 Below umbilicus shallow 2. 5 finger widths 4 Below umbilicus shallow 2. 5 finger widths 5 Below umbilicus shallow 2. 5 finger widths Pubic symphysis increased separation at caudal half of joint Short Term Goal (STG) Pt will be educated in the severity and education of her DR/umbilical hernia. 06/24/22: DR/Umbilical Hernia education. 08/04/22: Educated pt in severity factors for DR STG Duration 06/06/22 (08/04/22: MET GOAL ) Corporate Concierge Goal (LTG) Pt will be independent in a TA strengthening program without doming of her abdomen (to minimize her DR/symphysis pubic separation), and a pelvic stabilization for symphysis pubic dysfunction. 06/24/22: Pt introduced to K- taping. 08/04/22: Pt choosing not to use K-tape at home. LTG Duration 12/11/22 (08/04/22: DC K- tape goal, not longer appropriate at pt request) One Impairment Lacks appropriate self care HEP Impairment Poor body mechanics with transfer sit<>supine, sit<> stand. Short Term Goal (STG) Pt will be educated in proper body mechanics appropriate for post- DR. (06/06/22: Pt educated in sit<> sup transfer with use of support to abdomen/DR). (07/03/22: Pt educated in proper body mechanics for post - DR). STG Duration 06/06/22 (07/03/22: MET GOAL) Corporate Concierge Goal (LTG) Pt will be educated in a self care HEP to include core/ pelvic/hip strengthening. (06/06/22: Pt I/S in TA tightening in sup, and sidelie ). (07/17/22: Pt I/S in core stab of 4pt leg lifts and UE lifts). LTG Duration 12/11/22 (07/17/22: Progressed) Assessment Summary Assessment Pt has pubic symphysis laxity and therefore some pain with pubic closure program; therefore the pt may need to focus on approximation of joint ex's for a short time period. She had no pain complaints with hip AB/IR stretching. Pt demonstrates trunk R SB in supine and had a mild inflare of R innominate. Her DR appears to be slightly better, but didn't appear as tender with assessment. Physical Therapy Plan Frequency and Duration Frequency of Treatment 2x/Week Plan of Care Start Date 09/12/22 Plan of Care End Date 12/11/22 Next Visit Focus/Plan Next Note Type Treatment Note Next Visit Plan Assess response to Hip AB & IR stretches and if focus on hip ER/AB ex is helping to reduce pube pain. Assess doming with core activation to assess TA strength. Assess response to abdominal mobs/traction in standing. Manual: Thoracic balancing, DR (QL rotators) stretching, umbilical hernia/GI fascial mobs, and as needed-sacral/ pelvic balancing. Ther Ex: Add hip strengthening to HEP if needed . Progress core, pelvic strengthening. HEP: Monitor Deep breathing, Improve trunk extension above lower lumbar region ~ L3-L5, TA strengthening progression program, and pelvic stabilization for symphysis pubic dysfunction, & hip strengthening.
--- NOTE | 2022-11-13 17:15 | PT.OTN ---
Current Diagnoses Separation of muscle (nontraumatic), other site (11/13/22) Physical Therapy Treatment Note PT-OP-A Visit Information Start: 05/23/22 17:25 Freq: Status: Active Protocol: Document 11/13/22 08:20 LRN (Rec: 11/13/22 09:02 LRN [id number]) Out-Patient Physical Therapy Visit Information Visit Information Visit Type Treatment Note Visit Start Time 08:20 Visit Stop Time 09:58 Total Visit Minutes 38 Visit Number [id number] Evaluation Information Evaluation Date 05/26/22 Precautions Precautions Umbilical hernia, hx of inguinal hernia repairs bilateral 1997 (age 8) PT-OP-B Current Condition Start: 05/23/22 17:25 Freq: Status: Active Protocol: Document 05/26/22 14:42 LRN (Rec: 05/26/22 18:23 LRN [id number]) Current Condition History of Current Condition Onset Date 03/06/22 Current Complaints Concern Diastasis Rectus worsening, umbilical hernia pain, R MB>LB pain. History of Current Condition States after the 1st baby had coning of abdomen, and with 2nd baby has had more coning. Baby was 10#20oz, and his shoulder caught with childbearing and had to manipulate baby inside to get baby delivered. Baby in distress with cord around neck . Since childbirth, the pt is having core instability with abdominal weakness. She has had numbness in the R mid/low back that appears situational in nature, frequently, when getting up/down from sitting and with movement. She is experiencing a bolt of numbness/tingling in the R mid >low back that goes away within a few seconds. Prior Treatments and Tests None Developmental History Developmental History 2, Parity 2. Births on 03/06/[birth year] and 06/29/20. Children ages 23 months and 2. 5 months old. No dx of DR with 1st baby. Generalized LBP Treatment Goals Patient/Caregiver Goals Find out the severity of her DR. Pt education on protecting DR/umbilical hernia. Resolution of R back tingling/ numbness with positional changes (ex-sit<>stand and getting out of bed) and with lifting. Prior Functional Status Baseline Function- ADL's Independent Baseline Function- Mobility Independent Baseline Function- Recreation/Hobbies Exercises: Boxing, swimming weekly, and video cardio workouts daily. Current Functional Impairments (Reported) Functional Limitations- ADL's Not exercising. Personal Factors Other Personal Factors That May Effect Pt is mother of a 23 month yr Therapy/Recovery old and 2.5 month old. She is on maternity leave until 09/04/22. 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 PT-OP-C Subjective Start: 05/23/22 17:25 Freq: Status: Active Protocol: Document 11/13/22 08:20 LRN (Rec: 11/13/22 09:02 LRN [id number]) OP-PT Subjective Patient Comments Patient Comments Had onset of back pain once that was low level a fraction of what it used to be, 1-. ONly happened once this week, Mon or Tue. Has been up with baby with him only sleeping every 4 hrs. When on feet more, having sensitivity and pain in pelvic bone ( pointing to R ischial tub). States she is very sore and tender there. PT-OP-F Manual Assessment Start: 05/23/22 17:25 Freq: Status: Active Protocol: Document 05/26/22 14:42 LRN (Rec: 05/26/22 18:23 LRN [id number]) Manual Assessments Soft Tissue Assessment Soft Tissue Mobility Assessment Pubic symphysis increased separation at caudal half of joint. Finger widths: 3 Above umbilicus Shallow 2. 25 finger widths 2 Above umbilicus shallow 2. 5 finger widths 1 Above umbilicus 2.5 finger widths 1 Below umbilicus 3.0 finger widths 2 Below umbilicus 2.5 finger widths 3 Below umbilicus shallow 2. 5 finger widths 4 Below umbilicus shallow 2. 5 finger widths 5 Below umbilicus shallow 2. 5 finger widths PT-OP-J Posture/Palpation/Skin Start: 05/26/22 18:23 Freq: Status: Active Protocol: Document 11/07/22 09:06 LRN (Rec: 11/07/22 17:16 LRN [id number]) Palpation Assessment Location Abdomen Palpation Location Abdomen Palpation Details 3 Above umbilicus Shallow 2. 5 finger widths 2 Above umbilicus shallow 2. 5 finger widths 1 Above umbilicus 2.5 finger widths 1 Below umbilicus shallow 2. 5 finger widths, less deep than previous, no tenderness. 2 Below umbilicus shallow 2. 5 finger widths 3 Below umbilicus very shallow 2.5 finger widths 4 Below umbilicus very shallow 2.25 finger widths 5 Below umbilicus very very shallow 1.5 finger widths, shallow PT-OP-K Range of Motion Start: 05/23/22 17:25 Freq: Status: Active Protocol: Document 06/24/22 08:20 LRN (Rec: 06/24/22 09:03 LRN [id number]) Hip Goniometric Range of Motion Hip Right Passive Testing Position Supine Abduction 40 Internal Rotation 60 External Rotation 75 Left Passive Testing Position Supine Abduction 33 Internal Rotation 45 External Rotation 75 PT-OP-M Strength Start: 05/23/22 17:25 Freq: Status: Active Protocol: Document 05/26/22 14:42 LRN (Rec: 05/26/22 18:23 LRN [id number]) Trunk Strength Trunk Manual Muscle Testing Core Stabilization Pt is not able to tolerate resistance of leg lifting due to onset of LE ms spasms. Obvious doming of abdomen is present. Hip Strength Hip Manual Muscle Testing Right Flexion (L2) 3- Fair- Extension (S1) 5 Normal Abduction 5 Normal Adduction 2+ Poor+ External Rotation 3- Fair- Internal Rotation 3+ Fair+ Comments Ms cramp in Quads with leg lift Left Flexion (L2) 3- Fair- Extension (S1) 4 Good External Rotation 3- Fair- Internal Rotation 3+ Fair+ Comments Ms cramp in Quads with leg lift PT-OP-Q Treatments Start: 05/23/22 17:25 Freq: Status: Active Protocol: Document 11/13/22 08:20 LRN (Rec: 11/13/22 09:02 LRN [id number]) Manual Therapy Treatment Soft Tissue Mobilization L/S Paraspinals Body Location R lower L/S Paraspinals Mobilization Type Strumming Body Position Prone QL Body Location R QL Mobilization Type Strumming Body Position Prone Gluteals Body Location R gluteals. Mobilization Type Strumming Body Position Prone PF Body Location R internal & external region of ischiococcygeus, Iliococcygeus, Puboccygeus Mobilization Type Myofascial Release,Strumming, Sustained Pressure,Trigger Point Release Body Position Supine PT-OP-T Assessment and Plan Start: 05/23/22 17:25 Freq: Status: Active Protocol: Document 11/13/22 08:20 LRN (Rec: 11/13/22 09:02 LRN [id number]) Physical Therapy Assessment Goals Three Impairment R mid to low back tingling/ numbness Impairment Pt has R mid to LB tingling/ numbness with positional changes, pain rated 3/10. Short Term Goal (STG) Pt will demonstrate improved posture and awareness in sitting and with changes of positions. (07/03/22: Pt sitting more upright in L/S, demonstrates upper thoracic increased kyphosis) (07/17/22: Pt demonstrated minimal postural slump in sitting, and immediately corrected with cuing). STG Duration 07/12/22 (07/17/22: MET GOAL) Longterm Goal (LTG) Resolution of R back tingling/ numbness with positional changes (ex-sit<>stand and getting out of bed) and with lifting. 07/25/22: Occurs occasionally . 09/01/22: Occurs with movement, Occasionally: sitting and reached out sit<> stand although less frequent. 09/12/22: Occurs when getting up from sitting position or when arms are out (reaching or holding baby), when R posterolateral trunk ms are being used. 09/19/22: Not felt getting out of bed for a long time. Has tingling/numbness sith<> stand while holding of baby, and with reaching out with arms or hold a weight out with arms. 10/27/22: No pain this past week for first time. LTG Duration 12/11/22 (10/27/22: Progressing) One Impairment Lacks appropriate self care HEP Impairment Poor body mechanics with transfer sit<>supine, sit<> stand. Short Term Goal (STG) Pt will be educated in proper body mechanics appropriate for post- DR. (06/06/22: Pt educated in sit<> sup transfer with use of support to abdomen/DR). (07/03/22: Pt educated in proper body mechanics for post - DR). STG Duration 06/06/22 (07/03/22: MET GOAL) Longterm Goal (LTG) Pt will be educated in a self care HEP to include core/ pelvic/hip strengthening. (06/06/22: Pt I/S in TA tightening in sup, and sidelie ). (07/17/22: Pt I/S in core stab of 4pt leg lifts and UE lifts). LTG Duration 12/11/22 (07/17/22: Progressed) Assessment Summary Assessment Pt has had onset R pelvic pain around R innominate from ischial tub to groin and posterior hip that may be due to pt habit of standing with greater WBing on LLE, as noted during therapy. Not able to determine if abdominal mobs in standing and Hip AB & IR stretches made a difference in back & pubic pain due to onset of new R sided pelvic pain. She needs to focus on hip ER/AB ex to reduce pub pain. R hip AD's tight, and in standing pt is low in R shoulder and Ilieum; therefore her R leg is possibly short. Physical Therapy Plan Frequency and Duration Frequency of Treatment 2x/Week Plan of Care Start Date 09/12/22 Plan of Care End Date 12/11/22 Next Visit Focus/Plan Next Note Type Treatment Note Next Visit Plan Assess doming with core activation to assess TA strength. Check/review Deep breathing ability. Assess response to abdominal mobs/traction in standing. Manual: DR: (QL rotators) stretching, umbilical hernia - urachus/GI fascial mobs, and as needed-sacral/pelvic and thoracic balancing. Ther Ex: Add hip strengthening to HEP if needed . Progress core, pelvic strengthening. HEP: Add trunk extension above, primarily lower lumbar region ~ L3-L5, TA strengthening program, and pelvic stabilization for symphysis pubic dysfunction, & hip strengthening.
--- NOTE | 2022-11-27 16:10 | PT.OTN ---
Current Diagnoses Separation of muscle (nontraumatic), other site (11/27/22) Physical Therapy Treatment Note PT-OP-A Visit Information Start: 05/23/22 17:25 Freq: Status: Active Protocol: Document 11/27/22 08:14 LRN (Rec: 11/27/22 09:01 LRN [id number]) Out-Patient Physical Therapy Visit Information Visit Information Visit Type Treatment Note Visit Note 7 after last PN. Visit Start Time 08:14 Visit Stop Time 08:56 Total Visit Minutes 42 Visit Number Evaluation Information Evaluation Date 05/26/22 Precautions Precautions Umbilical hernia, hx of inguinal hernia repairs bilateral 1997 (age 8) PT-OP-B Current Condition Start: 05/23/22 17:25 Freq: Status: Active Protocol: Document 05/26/22 14:42 LRN (Rec: 05/26/22 18:23 LRN [id number]) Current Condition History of Current Condition Onset Date 03/06/22 Current Complaints Concern Diastasis Rectus worsening, umbilical hernia pain, R MB>LB pain. History of Current Condition States after the 1st baby had coning of abdomen, and with 2nd baby has had more coning. Baby was 10#20oz, and his shoulder caught with childbearing and had to manipulate baby inside to get baby delivered. Baby in distress with cord around neck . Since childbirth, the pt is having core instability with abdominal weakness. She has had numbness in the R mid/low back that appears situational in nature, frequently, when getting up/down from sitting and with movement. She is experiencing a bolt of numbness/tingling in the R mid >low back that goes away within a few seconds. Prior Treatments and Tests None Developmental History Developmental History 2, Parity 2. Births on 03/06/22 and 06/29/20. Children ages 23 months and 2. 5 months old. No dx of DR with 1st baby. Generalized LBP Treatment Goals Patient/Caregiver Goals Find out the severity of her DR. Pt education on protecting DR/umbilical hernia. Resolution of R back tingling/ numbness with positional changes (ex-sit<>stand and getting out of bed) and with lifting. Prior Functional Status Baseline Function- ADL's Independent Baseline Function- Mobility Independent Baseline Function- Recreation/Hobbies Exercises: Boxing, swimming weekly, and video cardio workouts daily. Current Functional Impairments (Reported) Functional Limitations- ADL's Not exercising. Personal Factors Other Personal Factors That May Effect Pt is mother of a 23 month yr Therapy/Recovery old and 2.5 month old. She is on maternity leave until 09/04/22. 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 PT-OP-C Subjective Start: 05/23/22 17:25 Freq: Status: Active Protocol: Document 11/27/22 08:14 LRN (Rec: 11/27/22 09:01 LRN [id number]) OP-PT Subjective Patient Comments Patient Comments Has been being very mindful of standing on both legs; therefore No more pelvic pain. Still having sensitivity at pubic bone. Wants to be able to not cause further damage, wants to be able to continue exercising, wants to be able to stand w/o belly bulging out, wan Pain in mid back is infrequent and not as noticeable. In last 2 weeks hasn't felt it at all, once one time and minor with much less intensity. A teeny level of shock pain. PT-OP-F Manual Assessment Start: 05/23/22 17:25 Freq: Status: Active Protocol: Document 05/26/22 14:42 LRN (Rec: 05/26/22 18:23 LRN [id number]) Manual Assessments Soft Tissue Assessment Soft Tissue Mobility Assessment Pubic symphysis increased separation at caudal half of joint. Finger widths: 3 Above umbilicus Shallow 2. 25 finger widths 2 Above umbilicus shallow 2. 5 finger widths 1 Above umbilicus 2.5 finger widths 1 Below umbilicus 3.0 finger widths 2 Below umbilicus 2.5 finger widths 3 Below umbilicus shallow 2. 5 finger widths 4 Below umbilicus shallow 2. 5 finger widths 5 Below umbilicus shallow 2. 5 finger widths PT-OP-J Posture/Palpation/Skin Start: 05/26/22 18:23 Freq: Status: Active Protocol: Document 11/07/22 09:06 LRN (Rec: 11/07/22 17:16 LRN [id number]) Palpation Assessment Location Abdomen Palpation Location Abdomen Palpation Details 3 Above umbilicus Shallow 2. 5 finger widths 2 Above umbilicus shallow 2. 5 finger widths 1 Above umbilicus 2.5 finger widths 1 Below umbilicus shallow 2. 5 finger widths, less deep than previous, no tenderness. 2 Below umbilicus shallow 2. 5 finger widths 3 Below umbilicus very shallow 2.5 finger widths 4 Below umbilicus very shallow 2.25 finger widths 5 Below umbilicus very very shallow 1.5 finger widths, shallow PT-OP-K Range of Motion Start: 05/23/22 17:25 Freq: Status: Active Protocol: Document 06/24/22 08:20 LRN (Rec: 06/24/22 09:03 LRN [id number]) Hip Goniometric Range of Motion Hip Right Passive Testing Position Supine Abduction 40 Internal Rotation 60 External Rotation 75 Left Passive Testing Position Supine Abduction 33 Internal Rotation 45 External Rotation 75 PT-OP-M Strength Start: 05/23/22 17:25 Freq: Status: Active Protocol: Document 05/26/22 14:42 LRN (Rec: 05/26/22 18:23 LRN [id number]) Trunk Strength Trunk Manual Muscle Testing Core Stabilization Pt is not able to tolerate resistance of leg lifting due to onset of LE ms spasms. Obvious doming of abdomen is present. Hip Strength Hip Manual Muscle Testing Right Flexion (L2) 3- Fair- Extension (S1) 5 Normal Abduction 5 Normal Adduction 2+ Poor+ External Rotation 3- Fair- Internal Rotation 3+ Fair+ Comments Ms cramp in Quads with leg lift Left Flexion (L2) 3- Fair- Extension (S1) 4 Good External Rotation 3- Fair- Internal Rotation 3+ Fair+ Comments Ms cramp in Quads with leg lift PT-OP-Q Treatments Start: 05/23/22 17:25 Freq: Status: Active Protocol: Document 11/27/22 08:14 LRN (Rec: 11/27/22 09:01 LRN [id number]) Therapeutic Exercises Supine Exercises Diagonal Core strengthening Supine Exercise Name Hand to opp knee press Side bilateral TA tightening Supine Exercise Name TA tightening with: knee flex, heel slides, DKTC, & step outs Side bilateral Comments Much extra time taken for core stab with ex. Self-Care/Home Management Treatment Education Other Education Discussed plan of care and goals. Activities Self-Care/Home Management Activities Issued & reviewed HEP: TA ex with terrell heel slides & bug of step outs unsupported., and Prone trunk ext stretch, Prone ext (arms extended) and prone same leg lifts. PT-OP-T Assessment and Plan Start: 05/23/22 17:25 Freq: Status: Active Protocol: Document 11/27/22 08:14 LRN (Rec: 11/27/22 09:01 LRN [id number]) Physical Therapy Assessment Goals Three Impairment R mid to low back tingling/ numbness Impairment Pt has R mid to LB tingling/ numbness with positional changes, pain rated 3/10. Short Term Goal (STG) Pt will demonstrate improved posture and awareness in sitting and with changes of positions. (07/03/22: Pt sitting more upright in L/S, demonstrates upper thoracic increased kyphosis) (07/17/22: Pt demonstrated minimal postural slump in sitting, and immediately corrected with cuing). STG Duration 07/12/22 (07/17/22: MET GOAL) Physician President Goal (LTG) Resolution of R back tingling/ numbness with positional changes (ex-sit<>stand and getting out of bed) and with lifting. 07/25/22: Occurs occasionally . 09/01/22: Occurs with movement, Occasionally: sitting and reached out sit<> stand although less frequent. 09/12/22: Occurs when getting up from sitting position or when arms are out (reaching or holding baby), when R posterolateral trunk ms are being used. 09/19/22: Not felt getting out of bed for a long time. Has tingling/numbness sith<> stand while holding of baby, and with reaching out with arms or hold a weight out with arms. 10/27/22: No pain this past week for first time. LTG Duration 12/11/22 (10/27/22: Progressing) One Impairment Lacks appropriate self care HEP Impairment Poor body mechanics with transfer sit<>supine, sit<> stand. Short Term Goal (STG) Pt will be educated in proper body mechanics appropriate for post- DR. (06/06/22: Pt educated in sit<> sup transfer with use of support to abdomen/DR). (07/03/22: Pt educated in proper body mechanics for post - DR). STG Duration 06/06/22 (07/03/22: MET GOAL) Physician President Goal (LTG) Pt will be educated in a self care HEP to include core/ pelvic/hip strengthening. (06/06/22: Pt I/S in TA tightening in sup, and sidelie ). (07/17/22: Pt I/S in core stab of 4pt leg lifts and UE lifts). LTG Duration 12/11/22 (07/17/22: Progressed) Assessment Summary Assessment Pt mid back pain intensity and onset lessening; therefore abdominal mobs/traction were helpful in decreasing T/S pain . Further trunk dural stretch may be helpful. Pt having doming of abdomen with holding knees 90/90 and with one legged step out (unsupported); therefore TA weakness present with double leg ex's. Pt able to maintain TA with other ex's but not able to maintain with alternating legs; probably due to weakness of trunk rot. Standing umbilical hernia present. Physical Therapy Plan Frequency and Duration Frequency of Treatment 2x/Week Plan of Care Start Date 09/12/22 Plan of Care End Date 12/11/22 Next Visit Focus/Plan Next Note Type Progress Note Next Visit Plan PN to update POC for decreasing pub pain and progression of core stab for return to ex and for auto holding of TA and reduction of umbilical hernia. Pt wanting to come 1x/week with progression to 1x/2wks as she is able to independently progressw and exercise on her own. Monitor doming with core activation for progression of ex's. Review issued ex's: trunk extension primarily upper T/S & lower lumbar region ~ L3-L5, and paraspinal strengthening; and progress TA ex if appropriate (step outs w/o setting foot down). Check/review Deep breathing ability. Try adding K-tape to T/S spine and do HEP: trunk dural stretch. Manual: DR: umbilical hernia - urachus/GI fascial mobs, T/S mobs, and as needed-sacral/ pelvic and thoracic balancing. Ther Ex: Progress Trunk rotation, Add hip strengthening to HEP (hip AB) if needed. Progress core/ pelvic strengthening to reduce pube pain. HEP: Pelvic stabilization for symphysis pubic dysfunction, core & hip strengthening.
--- NOTE | 2022-12-04 17:37 | PT.OTN ---
Current Diagnoses Separation of muscle (nontraumatic), other site (12/04/22) Physical Therapy Treatment Note PT-OP-A Visit Information Start: 05/23/22 17:25 Freq: Status: Active Protocol: Document 12/04/22 08:19 LRN (Rec: 12/04/22 09:02 LRN [id number]) Out-Patient Physical Therapy Visit Information Visit Information Visit Type Progress Note Visit Start Time 08:19 Visit Stop Time 08:57 Total Visit Minutes 39 Visit Number 5/120 Evaluation Information Evaluation Date 05/26/22 Precautions Precautions Umbilical hernia, hx of inguinal hernia repairs bilateral 1997 (age 8) PT-OP-B Current Condition Start: 05/23/22 17:25 Freq: Status: Active Protocol: Document 05/26/22 14:42 LRN (Rec: 05/26/22 18:23 LRN [id number]) Current Condition History of Current Condition Onset Date 03/06/22 Current Complaints Concern Diastasis Rectus worsening, umbilical hernia pain, R MB>LB pain. History of Current Condition States after the 1st baby had coning of abdomen, and with 2nd baby has had more coning. Baby was 10#20oz, and his shoulder caught with childbearing and had to manipulate baby inside to get baby delivered. Baby in distress with cord around neck . Since childbirth, the pt is having core instability with abdominal weakness. She has had numbness in the R mid/low back that appears situational in nature, frequently, when getting up/down from sitting and with movement. She is experiencing a bolt of numbness/tingling in the R mid >low back that goes away within a few seconds. Prior Treatments and Tests None Developmental History Developmental History 2, Parity 2. Births on 03/06/[birth year] and 06/29/20. Children ages 23 months and 2. 5 months old. No dx of DR with 1st baby. Generalized LBP Treatment Goals Patient/Caregiver Goals Find out the severity of her DR. Pt education on protecting DR/umbilical hernia. Resolution of R back tingling/ numbness with positional changes (ex-sit<>stand and getting out of bed) and with lifting. Prior Functional Status Baseline Function- ADL's Independent Baseline Function- Mobility Independent Baseline Function- Recreation/Hobbies Exercises: Boxing, swimming weekly, and video cardio workouts daily. Current Functional Impairments (Reported) Functional Limitations- ADL's Not exercising. Personal Factors Other Personal Factors That May Effect Pt is mother of a 23 month yr Therapy/Recovery old and 2.5 month old. She is on maternity leave until 09/04/22. 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 PT-OP-C Subjective Start: 05/23/22 17:25 Freq: Status: Active Protocol: Document 12/04/22 08:19 LRN (Rec: 12/04/22 09:02 LRN [id number]) OP-PT Subjective Patient Comments Patient Comments 1x numbness and tingling in the back of lesser intensity. PT-OP-F Manual Assessment Start: 05/23/22 17:25 Freq: Status: Active Protocol: Document 05/26/22 14:42 LRN (Rec: 05/26/22 18:23 LRN [id number]) Manual Assessments Soft Tissue Assessment Soft Tissue Mobility Assessment Pubic symphysis increased separation at caudal half of joint. Finger widths: 3 Above umbilicus Shallow 2. 25 finger widths 2 Above umbilicus shallow 2. 5 finger widths 1 Above umbilicus 2.5 finger widths 1 Below umbilicus 3.0 finger widths 2 Below umbilicus 2.5 finger widths 3 Below umbilicus shallow 2. 5 finger widths 4 Below umbilicus shallow 2. 5 finger widths 5 Below umbilicus shallow 2. 5 finger widths PT-OP-J Posture/Palpation/Skin Start: 05/26/22 18:23 Freq: Status: Active Protocol: Document 11/07/22 09:06 LRN (Rec: 11/07/22 17:16 LRN [id number]) Palpation Assessment Location Abdomen Palpation Location Abdomen Palpation Details 3 Above umbilicus Shallow 2. 5 finger widths 2 Above umbilicus shallow 2. 5 finger widths 1 Above umbilicus 2.5 finger widths 1 Below umbilicus shallow 2. 5 finger widths, less deep than previous, no tenderness. 2 Below umbilicus shallow 2. 5 finger widths 3 Below umbilicus very shallow 2.5 finger widths 4 Below umbilicus very shallow 2.25 finger widths 5 Below umbilicus very very shallow 1.5 finger widths, shallow PT-OP-K Range of Motion Start: 05/23/22 17:25 Freq: Status: Active Protocol: Document 06/24/22 08:20 LRN (Rec: 06/24/22 09:03 LRN [id number]) Hip Goniometric Range of Motion Hip Right Passive Testing Position Supine Abduction 40 Internal Rotation 60 External Rotation 75 Left Passive Testing Position Supine Abduction 33 Internal Rotation 45 External Rotation 75 PT-OP-M Strength Start: 05/23/22 17:25 Freq: Status: Active Protocol: Document 05/26/22 14:42 LRN (Rec: 05/26/22 18:23 LRN [id number]) Trunk Strength Trunk Manual Muscle Testing Core Stabilization Pt is not able to tolerate resistance of leg lifting due to onset of LE ms spasms. Obvious doming of abdomen is present. Hip Strength Hip Manual Muscle Testing Right Flexion (L2) 3- Fair- Extension (S1) 5 Normal Abduction 5 Normal Adduction 2+ Poor+ External Rotation 3- Fair- Internal Rotation 3+ Fair+ Comments Ms cramp in Quads with leg lift Left Flexion (L2) 3- Fair- Extension (S1) 4 Good External Rotation 3- Fair- Internal Rotation 3+ Fair+ Comments Ms cramp in Quads with leg lift PT-OP-Q Treatments Start: 05/23/22 17:25 Freq: Status: Active Protocol: Document 12/04/22 08:19 LRN (Rec: 12/04/22 09:02 LRN [id number]) Therapeutic Exercises Prone Exercises Claude UE/LE lifts Prone Exercise Name Claude UE/LE lifts Side bilateral Reps/Minutes 2 breath holds, 5x Comments v cuing on breathing and for coordinated moving. Trunk Ext strengthening Prone Exercise Name Arm lifts w/wrist mvmts, leg lifts w/ft mvmts, arm/leg lifts: same/opp Side bilateral Reps/Minutes Single lifts: 5 mvmt holds x 5 each; Double lifts: 2 SH x 5 Comments v cuing on breathing and for coordinated moving. Sitting Exercises Hamstring/LE neural gliding Sitting Exercise Name Kick the Head Off (HO)/Kick the head/Kick HO Side bilateral Reps/Minutes 5x each side for each position /rep Other Exercises Cat/Cow Other Exercise Name Alternating: Ext ~T6 & Child's pose Reps/Minutes 5SH x 10 Manual Therapy Treatment Soft Tissue Mobilization Mid Thoracic Body Location Mid Thoracic Mobilization Type Myofascial Release Intensity/Depth Superficial Body Position Hooklying Comments Flex/Ext Mob Abdomen Body Location Abdomen - center, umbilicus, side<>side Mobilization Type Myofascial Release Body Position 4 pt in standing, forearm/feet . Comments Adominal traction standing. previous release in supine, with LTR LE mvmt & release to L side with SB to left Joint Mobilizations T/S Joint PA T4-&10 Grade III Body Position Prone Reps/Duration 10' PT-OP-T Assessment and Plan Start: 05/23/22 17:25 Freq: Status: Active Protocol: Document 12/04/22 08:19 LRN (Rec: 12/04/22 09:02 LRN [id number]) Physical Therapy Assessment Rehab Potential Rehabilitation Potential Excellent Evaluation Complexity Number of Personal Factors/Comorbidities 1-2 Number of Body Systems Impaired 4 or More Clinical Presentation at Evaluation Evolving Impairments Impairments Activity Tolerance,Pain, Posture,Soft Tissue Mobility, Strength Goals Four Impairment Poor posture with umbilical hernia Short Term Goal (STG) Pt will be educated in proper standing/sitting posture. 06/24/22: Educated pt in proper sitting and standing posture. Used lift under toes for standing correction. STG Duration 06/06/22 (06/06/22: MET GOAL) Hydrostatic Tester Goal (LTG) Pt will be able to perform a head lift in supine without doming of abdomen and decreased discomfort at umbilicus. 07/10/22: Pt able to head lift without doming of abdomen. 08/04/22: No umbilical pain with head lift, but pt notes has discomfort when in sitting /standing - holding baby in front pack. LTG Duration 08/24/22 (08/04/22: MET GOAL ) Three Impairment R mid to low back tingling/ numbness Impairment Pt has R mid to LB tingling/ numbness with positional changes, pain rated 3/10. Short Term Goal (STG) Pt will demonstrate improved posture and awareness in sitting and with changes of positions. (07/03/22: Pt sitting more upright in L/S, demonstrates upper thoracic increased kyphosis) (07/17/22: Pt demonstrated minimal postural slump in sitting, and immediately corrected with cuing). STG Duration 07/12/22 (07/17/22: MET GOAL) Fpc Goal (LTG) Resolution of R back tingling/ numbness with positional changes (ex-sit<>stand and getting out of bed) and with lifting. 07/25/22: Occurs occasionally . 09/01/22: Occurs with movement, Occasionally: sitting and reached out sit<> stand although less frequent. 09/12/22: Occurs when getting up from sitting position or when arms are out (reaching or holding baby), when R posterolateral trunk ms are being used. 09/19/22: Not felt getting out of bed for a long time. Has tingling/numbness sith<> stand while holding of baby, and with reaching out with arms or hold a weight out with arms. 10/27/22: No pain this past week for first time. 12/04/22: 1x last week, very faint. 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 25 finger widths 2 Above umbilicus shallow 2. 5 finger widths 1 Above umbilicus 2.5 finger widths 1 Below umbilicus 3.0 finger widths 2 Below umbilicus 2.5 finger widths 3 Below umbilicus shallow 2. 5 finger widths 4 Below umbilicus shallow 2. 5 finger widths 5 Below umbilicus shallow 2. 5 finger widths Pubic symphysis increased separation at caudal half of joint Short Term Goal (STG) Pt will be educated in the severity and education of her DR/umbilical hernia. 06/24/22: DR/Umbilical Hernia education. 08/04/22: Educated pt in severity factors for DR STG Duration 06/06/22 (08/04/22: MET GOAL ) Fpc Goal (LTG) Pt will be independent in a TA strengthening program without doming of her abdomen (to minimize her DR/symphysis pubic separation), and a pelvic stabilization for symphysis pubic dysfunction. 06/24/22: Pt introduced to K- taping. 08/04/22: Pt choosing not to use K-tape at home. LTG Duration 12/11/22 (08/04/22: DC K- tape goal, not longer appropriate at pt request) One Impairment Lacks appropriate self care HEP Impairment Poor body mechanics with transfer sit<>supine, sit<> stand. Short Term Goal (STG) Pt will be educated in proper body mechanics appropriate for post- (06/06/22: Pt educated in sit<> sup transfer with use of support to abdomen/DR). (07/03/22: Pt educated in proper body mechanics for post - DR). STG Duration 06/06/22 (07/03/22: MET GOAL) Fpc Goal (LTG) Pt will be educated in a self care HEP to include core/ pelvic/hip strengthening. (06/06/22: Pt I/S in TA tightening in sup, and sidelie ). (07/17/22: Pt I/S in core stab of 4pt leg lifts and UE lifts). 12/04/22: Review of HEP: Prone trunk extensor strengthening (arm & leg lifts) LTG Duration 03/04/23 progressing 12/04/22 Assessment Summary Assessment Pt is ~9 months post- ( childbirth on 03/06/22) who is still ; therefore continues to have soft tissue related changes due to the hormonal changes from . Pt is having occasional back numbness and tingling from what appears to be soft tissue/myofascial tightness, LE nerve tension and weakness of core (TA & back extensors) and deviation from normal posturing. She is having post- pubic pain due to her core/pelvic instability. The pt has made very good improvements recently with lessening of her back pain to noticeably 1x/ week, and has shown improved tolerance to exercise with addition of standing resistive core strengthening. She could benefit from continued skilled physical therapy for core/trunk stabilization for resolution of her back and pubic pain, and for automatic TA contractions w/o abdominal doming, reduction of umbilical hernia, and return to a previous exercise program with her diastasis rectusis protected. Physical Therapy Plan Frequency and Duration Frequency of Treatment 2x/Week Plan of Care Start Date 12/04/22 Plan of Care End Date 03/04/23 Therapeutic Interventions Therapeutic Interventions Home Exercise Program,Joint Mobilizations,Manual Therapy, Neuromuscular Re-education, Patient/Caregiver Education, Self-Care/Home Management,Soft Tissue Mobilization,Taping, Therapeutic Exercises Modalities Cold Pack/Ice Massage,Electric Stimulation,Hot Packs Next Visit Focus/Plan Next Note Type Treatment Note Next Visit Plan Pt wanting to come 1x/week with progression to 1x/2wks as she is able to independently progress and exercise on her own. Monitor doming with core activation for progression of ex's and treat abdomen for umbilical hernia (Manual: DR: umbilical hernia - urachus/GI fascial mobs, T/S mobs, and as needed-sacral/pelvic and thoracic balancing). Review issued ex's: trunk extension primarily upper T/S & lower lumbar region ~ L3-L5, and paraspinal strengthening; and progress TA ex if appropriate (step outs w/o setting foot down). Check/review Deep breathing ability. Try adding K-tape to T/S spine and do HEP: trunk dural stretch. Ther Ex: Progress Trunk rotation, Add hip strengthening to HEP (hip AB) if needed. Progress core/ pelvic strengthening to reduce pube pain. HEP: Pelvic stabilization for symphysis pubic dysfunction, core & hip strengthening.
--- NOTE | 2023-01-06 09:27 | PT.OTN ---
Current Diagnoses Separation of muscle (nontraumatic), other site (01/06/23) Physical Therapy Treatment Note PT-OP-A Visit Information Start: 05/23/22 17:25 Freq: Status: Active Protocol: Document 01/06/23 08:16 LRN (Rec: 01/06/23 09:26 LRN [id number]) Out-Patient Physical Therapy Visit Information Visit Information Visit Type Treatment Note Visit Start Time 08:16 Visit Stop Time 08:58 Total Visit Minutes 42 Visit Number 120 Evaluation Information Evaluation Date 05/26/22 Precautions Precautions Umbilical hernia, hx of inguinal hernia repairs bilateral 1997 (age 8) PT-OP-B Current Condition Start: 05/23/22 17:25 Freq: Status: Active Protocol: Document 05/26/22 14:42 LRN (Rec: 05/26/22 18:23 LRN [id number]) Current Condition History of Current Condition Onset Date 03/06/22 Current Complaints Concern Diastasis Rectus worsening, umbilical hernia pain, R MB>LB pain. History of Current Condition States after the 1st baby had coning of abdomen, and with 2nd baby has had more coning. Baby was 10#20oz, and his shoulder caught with childbearing and had to manipulate baby inside to get baby delivered. Baby in distress with cord around neck . Since childbirth, the pt is having core instability with abdominal weakness. She has had numbness in the R mid/low back that appears situational in nature, frequently, when getting up/down from sitting and with movement. She is experiencing a bolt of numbness/tingling in the R mid >low back that goes away within a few seconds. Prior Treatments and Tests None Developmental History Developmental History 2, Parity 2. Births on 03/06/22 and 06/29/20. Children ages 23 months and 2. 5 months old. No dx of DR with 1st baby. Generalized LBP Treatment Goals Patient/Caregiver Goals Find out the severity of her DR. Pt education on protecting DR/umbilical hernia. Resolution of R back tingling/ numbness with positional changes (ex-sit<>stand and getting out of bed) and with lifting. Prior Functional Status Baseline Function- ADL's Independent Baseline Function- Mobility Independent Baseline Function- Recreation/Hobbies Exercises: Boxing, swimming weekly, and video cardio workouts daily. Current Functional Impairments (Reported) Functional Limitations- ADL's Not exercising. Personal Factors Other Personal Factors That May Effect Pt is mother of a 23 month yr Therapy/Recovery old and 2.5 month old. She is on maternity leave until 09/04/22. 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 PT-OP-C Subjective Start: 05/23/22 17:25 Freq: Status: Active Protocol: Document 01/06/23 08:16 LRN (Rec: 01/06/23 09:26 LRN [id number]) OP-PT Subjective Patient Comments Patient Comments has been gone, so she hasn't been doing the ex's. Suffering from lack of sleep. Has been working on equal WBing on her feet. Hasn't had any pelvic pain and no back pain. Thinks equal WBing has been the mcdaniel. PT-OP-F Manual Assessment Start: 05/23/22 17:25 Freq: Status: Active Protocol: Document 05/26/22 14:42 LRN (Rec: 05/26/22 18:23 LRN [id number]) Manual Assessments Soft Tissue Assessment Soft Tissue Mobility Assessment Pubic symphysis increased separation at caudal half of joint. Finger widths: 3 Above umbilicus Shallow 2. 25 finger widths 2 Above umbilicus shallow 2. 5 finger widths 1 Above umbilicus 2.5 finger widths 1 Below umbilicus 3.0 finger widths 2 Below umbilicus 2.5 finger widths 3 Below umbilicus shallow 2. 5 finger widths 4 Below umbilicus shallow 2. 5 finger widths 5 Below umbilicus shallow 2. 5 finger widths PT-OP-J Posture/Palpation/Skin Start: 05/26/22 18:23 Freq: Status: Active Protocol: Document 01/06/23 08:16 LRN (Rec: 01/06/23 09:26 LRN [id number]) Palpation Assessment Location Abdomen Palpation Location Abdomen Palpation Details 3 Above umbilicus Very Shallow 1.5 finger widths 2 Above umbilicus shallow 2. 25 finger widths 1 Above umbilicus 2.5 finger widths 1 Below umbilicus shallow 2. 5 finger widths. 2 Below umbilicus shallow 2 finger widths 3 Below umbilicus very very shallow 1.5 finger widths 4 Below umbilicus very shallow .5 finger widths 5 Below umbilicus closed. PT-OP-K Range of Motion Start: 05/23/22 17:25 Freq: Status: Active Protocol: Document 06/24/22 08:20 LRN (Rec: 06/24/22 09:03 LRN [id number]) Hip Goniometric Range of Motion Hip Right Passive Testing Position Supine Abduction 40 Internal Rotation 60 External Rotation 75 Left Passive Testing Position Supine Abduction 33 Internal Rotation 45 External Rotation 75 PT-OP-M Strength Start: 05/23/22 17:25 Freq: Status: Active Protocol: Document 05/26/22 14:42 LRN (Rec: 05/26/22 18:23 LRN [id number]) Trunk Strength Trunk Manual Muscle Testing Core Stabilization Pt is not able to tolerate resistance of leg lifting due to onset of LE ms spasms. Obvious doming of abdomen is present. Hip Strength Hip Manual Muscle Testing Right Flexion (L2) 3- Fair- Extension (S1) 5 Normal Abduction 5 Normal Adduction 2+ Poor+ External Rotation 3- Fair- Internal Rotation 3+ Fair+ Comments Ms cramp in Quads with leg lift Left Flexion (L2) 3- Fair- Extension (S1) 4 Good External Rotation 3- Fair- Internal Rotation 3+ Fair+ Comments Ms cramp in Quads with leg lift PT-OP-Q Treatments Start: 05/23/22 17:25 Freq: Status: Active Protocol: Document 01/06/23 08:16 LRN (Rec: 01/06/23 09:26 LRN [id number]) Therapeutic Exercises Supine Exercises Step outs Supine Exercise Name Step outs Side bilateral Comments Much time was spent on training pt to keep core stability with ex. Toe taps Supine Exercise Name Hooklye-toe taps Side bilateral Reps/Minutes 10' Comments Loss of core stab due to weak L trunk rotation. Diagonal Core strengthening Supine Exercise Name L Hand to opp R knee press Reps/Minutes 6' TA tightening Supine Exercise Name TA tightening with: head lifts Comments DR measurements taken Prone Exercises Claude UE/LE lifts Prone Exercise Name Claude opp UE/LE lifts Side bilateral Reps/Minutes 10x 3 Comments v cuing on breathing and for coordinated moving. Self-Care/Home Management Treatment Education Other Education Discussed post- body awareness and body changes over time, and changes that will occur post-. Much time spent reassuring pt that further stabilization of the core is probable with hormonal changes after , and discussing pt fears of not spending enough time exercising due to child support investigator demands and loss of sleep. PT-OP-T Assessment and Plan Start: 05/23/22 17:25 Freq: Status: Active Protocol: Document 01/06/23 08:16 LRN (Rec: 01/06/23 09:26 LRN [id number]) Physical Therapy Assessment Goals Four Impairment Poor posture with umbilical hernia Short Term Goal (STG) Pt will be educated in proper standing/sitting posture. 06/24/22: Educated pt in proper sitting and standing posture. Used lift under toes for standing correction. STG Duration 06/06/22 (06/06/22: MET GOAL) Shelter Goal (LTG) Pt will be able to perform a head lift in supine without doming of abdomen and decreased discomfort at umbilicus. 07/10/22: Pt able to head lift without doming of abdomen. 08/04/22: No umbilical pain with head lift, but pt notes has discomfort when in sitting /standing - holding baby in front pack. LTG Duration 08/24/22 (08/04/22: MET GOAL ) Three Impairment R mid to low back tingling/ numbness Impairment Pt has R mid to LB tingling/ numbness with positional changes, pain rated 3/10. Short Term Goal (STG) Pt will demonstrate improved posture and awareness in sitting and with changes of positions. (07/03/22: Pt sitting more upright in L/S, demonstrates upper thoracic increased kyphosis) (07/17/22: Pt demonstrated minimal postural slump in sitting, and immediately corrected with cuing). STG Duration 07/12/22 (07/17/22: MET GOAL) Follow Up Clerk Goal (LTG) Resolution of R back tingling/ numbness with positional changes (ex-sit<>stand and getting out of bed) and with lifting. 07/25/22: Occurs occasionally . 09/01/22: Occurs with movement, Occasionally: sitting and reached out sit<> stand although less frequent. 09/12/22: Occurs when getting up from sitting position or when arms are out (reaching or holding baby), when R posterolateral trunk ms are being used. 09/19/22: Not felt getting out of bed for a long time. Has tingling/numbness sith<> stand while holding of baby, and with reaching out with arms or hold a weight out with arms. 10/27/22: No pain this past week for first time. 12/04/22: 1x last week, very faint. 01/06/23: No pain in past 2 weeks. 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 25 finger widths 2 Above umbilicus shallow 2. 5 finger widths 1 Above umbilicus 2.5 finger widths 1 Below umbilicus 3.0 finger widths 2 Below umbilicus 2.5 finger widths 3 Below umbilicus shallow 2. 5 finger widths 4 Below umbilicus shallow 2. 5 finger widths 5 Below umbilicus shallow 2. 5 finger widths Pubic symphysis increased separation at caudal half of joint Short Term Goal (STG) Pt will be educated in the severity and education of her DR/umbilical hernia. 06/24/22: DR/Umbilical Hernia education. 08/04/22: Educated pt in severity factors for DR STG Duration 06/06/22 (08/04/22: MET GOAL ) Shelter Goal (LTG) Pt will be independent in a TA strengthening program without doming of her abdomen (to minimize her DR/symphysis pubic separation), and a pelvic stabilization for symphysis pubic dysfunction. 06/24/22: Pt introduced to K- taping. 08/04/22: Pt choosing not to use K-tape at home. 01/06/23: Pt progressed in HEP of progressive abdominal and trunk ext strengthening. LTG Duration 12/11/22 progressed 01/06/23 One Impairment Lacks appropriate self care HEP Impairment Poor body mechanics with transfer sit<>supine, sit<> stand. Short Term Goal (STG) Pt will be educated in proper body mechanics appropriate for post- DR. (06/06/22: Pt educated in sit<> sup transfer with use of support to abdomen/DR). (07/03/22: Pt educated in proper body mechanics for post - DR). STG Duration 06/06/22 (07/03/22: MET GOAL) Follow Up Clerk Goal (LTG) Pt will be educated in a self care HEP to include core/ pelvic/hip strengthening. (06/06/22: Pt I/S in TA tightening in sup, and sidelie ). (07/17/22: Pt I/S in core stab of 4pt leg lifts and UE lifts). 12/04/22: Review of HEP: Prone trunk extensor strengthening (arm & leg lifts). 01/06/23: Added prone alternate arm/leg lifts & supine step outs. LTG Duration 03/04/23 progressed 01/06/23 Assessment Summary Assessment Pt demonstrates improvement in lessening of her DR. She is able to maintain good TA tightening with mild doming with leg step outs, but shows weakness in trunk L rotators allowing pelvis to rotate R with R LE step outs. Pt back pain appears resolved for the past 2 weeks as she has been more diligent in correcting posture in standing and sitting. The pt would benefit from recheck for improvement in strength of her R trunk rotators for stability of pelvis with LE movement, and progression to resisted ex ( TBand strengthening) for core/ TA. Physical Therapy Plan Frequency and Duration Frequency of Treatment 2x/Week Plan of Care Start Date 12/04/22 Plan of Care End Date 03/04/23 Next Visit Focus/Plan Next Note Type Treatment Note Next Visit Plan Recheck pt R trunk/R pelvic rotator strength for stability with LE core stab exercise ( step outs w/o setting foot down) in 2wks. Assess pubic symphysis stability and add PF strengthening if needed for core/pelvic stability. Check/review Deep breathing ability. Add HEP: hip strengthening to HEP (hip AB) if needed. If pt is able to maintain core stability with LE movement, DC to HEP with ptoption of return with new referral at least 6 months post for further strengthening. STM: Treat abdomen for umbilical hernia (Manual: DR: umbilical hernia - urachus/GI fascial mobs, T/S mobs, and as needed-sacral/pelvic and thoracic balancing).
--- NOTE | 2023-01-15 19:58 | PT.OTN ---
Current Diagnoses Separation of muscle (nontraumatic), other site (01/15/23) Physical Therapy Treatment Note PT-OP-A Visit Information Start: 05/23/22 17:25 Freq: Status: Active Protocol: Document 01/15/23 08:19 LRN (Rec: 01/15/23 08:19 LRN [id number]) Out-Patient Physical Therapy Visit Information Visit Information Visit Type Treatment Note Visit Note Pt 4' late Visit Start Time 08:19 Visit Stop Time 08:57 Total Visit Minutes 38 Visit Number 7/120 Evaluation Information Evaluation Date 05/26/22 Precautions Precautions Umbilical hernia, hx of inguinal hernia repairs bilateral 1997 (age 8) PT-OP-B Current Condition Start: 05/23/22 17:25 Freq: Status: Active Protocol: Document 05/26/22 14:42 LRN (Rec: 05/26/22 18:23 LRN [id number]) Current Condition History of Current Condition Onset Date 03/06/22 Current Complaints Concern Diastasis Rectus worsening, umbilical hernia pain, R MB>LB pain. History of Current Condition States after the 1st baby had coning of abdomen, and with 2nd baby has had more coning. Baby was 10#20oz, and his shoulder caught with childbearing and had to manipulate baby inside to get baby delivered. Baby in distress with cord around neck . Since childbirth, the pt is having core instability with abdominal weakness. She has had numbness in the R mid/low back that appears situational in nature, frequently, when getting up/down from sitting and with movement. She is experiencing a bolt of numbness/tingling in the R mid >low back that goes away within a few seconds. Prior Treatments and Tests None Developmental History Developmental History 2, Parity 2. Births on 03/06/[birth year] and 06/29/20. Children ages 23 months and 2. 5 months old. No dx of DR with 1st baby. Generalized LBP Treatment Goals Patient/Caregiver Goals Find out the severity of her DR. Pt education on protecting DR/umbilical hernia. Resolution of R back tingling/ numbness with positional changes (ex-sit<>stand and getting out of bed) and with lifting. Prior Functional Status Baseline Function- ADL's Independent Baseline Function- Mobility Independent Baseline Function- Recreation/Hobbies Exercises: Boxing, swimming weekly, and video cardio workouts daily. Current Functional Impairments (Reported) Functional Limitations- ADL's Not exercising. Personal Factors Other Personal Factors That May Effect Pt is mother of a 23 month yr Therapy/Recovery old and 2.5 month old. She is on maternity leave until 09/04/22. 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 PT-OP-C Subjective Start: 05/23/22 17:25 Freq: Status: Active Protocol: Document 01/15/23 08:19 LRN (Rec: 01/15/23 08:19 LRN [id number]) OP-PT Subjective Patient Comments Patient Comments Has not been able to work on trunk rot strengthening as much as she would like. PT-OP-F Manual Assessment Start: 05/23/22 17:25 Freq: Status: Active Protocol: Document 05/26/22 14:42 LRN (Rec: 05/26/22 18:23 LRN [id number]) Manual Assessments Soft Tissue Assessment Soft Tissue Mobility Assessment Pubic symphysis increased separation at caudal half of joint. Finger widths: 3 Above umbilicus Shallow 2. 25 finger widths 2 Above umbilicus shallow 2. 5 finger widths 1 Above umbilicus 2.5 finger widths 1 Below umbilicus 3.0 finger widths 2 Below umbilicus 2.5 finger widths 3 Below umbilicus shallow 2. 5 finger widths 4 Below umbilicus shallow 2. 5 finger widths 5 Below umbilicus shallow 2. 5 finger widths PT-OP-J Posture/Palpation/Skin Start: 05/26/22 18:23 Freq: Status: Active Protocol: Document 01/15/23 08:19 LRN (Rec: 01/15/23 08:36 LRN [id number]) Palpation Assessment Location Abdomen Palpation Location TA Palpation Details Pt able to maintain TA tight with LE leg movements. PT-OP-K Range of Motion Start: 05/23/22 17:25 Freq: Status: Active Protocol: Document 06/24/22 08:20 LRN (Rec: 06/24/22 09:03 LRN [id number]) Hip Goniometric Range of Motion Hip Right Passive Testing Position Supine Abduction 40 Internal Rotation 60 External Rotation 75 Left Passive Testing Position Supine Abduction 33 Internal Rotation 45 External Rotation 75 PT-OP-M Strength Start: 05/23/22 17:25 Freq: Status: Active Protocol: Document 01/15/23 08:19 LRN (Rec: 01/15/23 08:36 LRN [id number]) Trunk Strength Trunk Manual Muscle Testing Core Stabilization Lacks core stability with rotation bilaterally Hip Strength Hip Manual Muscle Testing Right Abduction 4+ Good+ Left Abduction 4+ Good+ PT-OP-Q Treatments Start: 05/23/22 17:25 Freq: Status: Active Protocol: Document 01/15/23 08:19 LRN (Rec: 01/15/23 08:37 LRN [id number]) Therapeutic Exercises Supine Exercises Step outs Supine Exercise Name Step outs Side bilateral Reps/Minutes 8x Comments Pt able to maintain core stability and no doming noted Piriformis Supine Exercise Name Piriformis Side bilateral Reps/Minutes 3' Comments L much tighter than R Toe taps Supine Exercise Name Hooklye-toe taps Side bilateral Reps/Minutes 30+ Comments Loss of core stab due to weak L trunk rotation. Diagonal Core strengthening Supine Exercise Name L Hand to opp R knee press Side bilateral Reps/Minutes 30+ each TA tightening Supine Exercise Name TA tightening with: head lift, leg lift, heel slide, step outs Comments Noting for doming of abdomen Sidelying Exercises TA/Hip AB Sidelying Exercise Name Hip AB Side bilateral Reps/Minutes 15x Comments Weak L>R Other Exercises !/2 plank>push up Other Exercise Name 1/2 Plank Reps/Minutes 6' 4pt TA tightening Other Exercise Name 4 pt TA tightening Reps/Minutes 3' Self-Care/Home Management Treatment Education Patient Education Home Exercise Program Activities Self-Care/Home Management Activities I/S pt in HEP: hip strengthening to HEP (hip AB) and SLR. PT-OP-T Assessment and Plan Start: 05/23/22 17:25 Freq: Status: Active Protocol: Document 01/15/23 08:19 LRN (Rec: 01/15/23 08:19 LRN [id number]) Physical Therapy Assessment Goals Four Impairment Poor posture with umbilical hernia Short Term Goal (STG) Pt will be educated in proper standing/sitting posture. 06/24/22: Educated pt in proper sitting and standing posture. Used lift under toes for standing correction. STG Duration 06/06/22 (06/06/22: MET GOAL) Signals Officer Goal (LTG) Pt will be able to perform a head lift in supine without doming of abdomen and decreased discomfort at umbilicus. 07/10/22: Pt able to head lift without doming of abdomen. 08/04/22: No umbilical pain with head lift, but pt notes has discomfort when in sitting /standing - holding baby in front pack. LTG Duration 08/24/22 (08/04/22: MET GOAL ) Three Impairment R mid to low back tingling/ numbness Impairment Pt has R mid to LB tingling/ numbness with positional changes, pain rated 3/10. Short Term Goal (STG) Pt will demonstrate improved posture and awareness in sitting and with changes of positions. (07/03/22: Pt sitting more upright in L/S, demonstrates upper thoracic increased kyphosis) (07/17/22: Pt demonstrated minimal postural slump in sitting, and immediately corrected with cuing). STG Duration 07/12/22 (07/17/22: MET GOAL) Signals Officer Goal (LTG) Resolution of R back tingling/ numbness with positional changes (ex-sit<>stand and getting out of bed) and with lifting. 07/25/22: Occurs occasionally . 09/01/22: Occurs with movement, Occasionally: sitting and reached out sit<> stand although less frequent. 09/12/22: Occurs when getting up from sitting position or when arms are out (reaching or holding baby), when R posterolateral trunk ms are being used. 09/19/22: Not felt getting out of bed for a long time. Has tingling/numbness sith<> stand while holding of baby, and with reaching out with arms or hold a weight out with arms. 10/27/22: No pain this past week for first time. 12/04/22: 1x last week, very faint. 01/06/23: No pain in past 2 weeks. 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 25 finger widths 2 Above umbilicus shallow 2. 5 finger widths 1 Above umbilicus 2.5 finger widths 1 Below umbilicus 3.0 finger widths 2 Below umbilicus 2.5 finger widths 3 Below umbilicus shallow 2. 5 finger widths 4 Below umbilicus shallow 2. 5 finger widths 5 Below umbilicus shallow 2. 5 finger widths Pubic symphysis increased separation at caudal half of joint Short Term Goal (STG) Pt will be educated in the severity and education of her DR/umbilical hernia. 06/24/22: DR/Umbilical Hernia education. 08/04/22: Educated pt in severity factors for DR STG Duration 06/06/22 (08/04/22: MET GOAL ) Signals Officer Goal (LTG) Pt will be independent in a TA strengthening program without doming of her abdomen (to minimize her DR/symphysis pubic separation), and a pelvic stabilization for symphysis pubic dysfunction. 06/24/22: Pt introduced to K- taping. 08/04/22: Pt choosing not to use K-tape at home. 01/06/23: Pt progressed in HEP of progressive abdominal and trunk ext strengthening. 01/15/23: Add HEP: hip strengthening to HEP (hip AB) if needed. Doming with 1/2 plank LTG Duration 12/11/22 progressed 01/15/23 One Impairment Lacks appropriate self care HEP Impairment Poor body mechanics with transfer sit<>supine, sit<> stand. Short Term Goal (STG) Pt will be educated in proper body mechanics appropriate for post- DR. (06/06/22: Pt educated in sit<> sup transfer with use of support to abdomen/DR). (07/03/22: Pt educated in proper body mechanics for post - DR). STG Duration 06/06/22 (07/03/22: MET GOAL) Care Home Goal (LTG) Pt will be educated in a self care HEP to include core/ pelvic/hip strengthening. (06/06/22: Pt I/S in TA tightening in sup, and sidelie ). (07/17/22: Pt I/S in core stab of 4pt leg lifts and UE lifts). 12/04/22: Review of HEP: Prone trunk extensor strengthening (arm & leg lifts). 01/06/23: Added prone alternate arm/leg lifts & supine step outs. 01/15/23: I/S pt in hip AB & SLR strengthening. LTG Duration 03/04/23 progressed 01/15/23 Assessment Summary Assessment Pt able to perform deep breathing with difference noted between chest and abdominal excursion, but not a large amount of abdominal excursion, but was able to improve the excursion with cuing. Weak Hip AB (L weaker than R) with burning pain in hip after 10 reps. Doming with coming into plank from prone. Pt pubic symphysis functionally deborah with pt behaviour change of standing equal wbing. Physical Therapy Plan Frequency and Duration Frequency of Treatment 2x/Week Plan of Care Start Date 12/04/22 Plan of Care End Date 03/04/23 Next Visit Focus/Plan Next Note Type Treatment Note Next Visit Plan Recheck pt R trunk/R pelvic rotator strength for stability with LE core stab exercise ( step outs w/o setting foot down) in 2wks. Assess rectum/vagina for rectal prolapse/rectocele. Add HEP handouts: Hip AB & SLR. DC to HEP with pt to return with new referral at least 6 months post for further strengthening. STM: Treat abdomen for umbilical hernia (Manual: DR: umbilical hernia - urachus/GI fascial mobs, T/S mobs, and as needed-sacral/pelvic and thoracic balancing).
--- NOTE | 2023-01-26 18:05 | PT.OTN ---
Current Diagnoses Separation of muscle (nontraumatic), other site (01/26/23) Physical Therapy Treatment Note PT-OP-A Visit Information Start: 05/23/22 17:25 Freq: Status: Active Protocol: Document 01/26/23 08:16 LRN (Rec: 01/26/23 09:03 LRN [id number]) Out-Patient Physical Therapy Visit Information Visit Information Visit Type Treatment Note Visit Start Time 08:16 Visit Stop Time 08:57 Total Visit Minutes 41 Visit Number [id number] Evaluation Information Evaluation Date 05/26/22 Precautions Precautions Umbilical hernia, hx of inguinal hernia repairs bilateral 1999 (age 8) PT-OP-B Current Condition Start: 05/23/22 17:25 Freq: Status: Active Protocol: Document 05/26/22 14:42 LRN (Rec: 05/26/22 18:23 LRN [id number]) Current Condition History of Current Condition Onset Date 03/06/22 Current Complaints Concern Diastasis Rectus worsening, umbilical hernia pain, R MB>LB pain. History of Current Condition States after the 1st baby had coning of abdomen, and with 2nd baby has had more coning. Baby was 10#20oz, and his shoulder caught with childbearing and had to manipulate baby inside to get baby delivered. Baby in distress with cord around neck . Since childbirth, the pt is having core instability with abdominal weakness. She has had numbness in the R mid/low back that appears situational in nature, frequently, when getting up/down from sitting and with movement. She is experiencing a bolt of numbness/tingling in the R mid >low back that goes away within a few seconds. Prior Treatments and Tests None Developmental History Developmental History 2, Parity 2. Births on 03/06/22 and 06/29/20. Children ages 23 months and 2. 5 months old. No dx of DR with 1st baby. Generalized LBP Treatment Goals Patient/Caregiver Goals Find out the severity of her DR. Pt education on protecting DR/umbilical hernia. Resolution of R back tingling/ numbness with positional changes (ex-sit<>stand and getting out of bed) and with lifting. Prior Functional Status Baseline Function- ADL's Independent Baseline Function- Mobility Independent Baseline Function- Recreation/Hobbies Exercises: Boxing, swimming weekly, and video cardio workouts daily. Current Functional Impairments (Reported) Functional Limitations- ADL's Not exercising. Personal Factors Other Personal Factors That May Effect Pt is mother of a 23 month yr Therapy/Recovery old and 2.5 month old. She is on maternity leave until 09/04/22. 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 PT-OP-C Subjective Start: 05/23/22 17:25 Freq: Status: Active Protocol: Document 01/26/23 08:16 LRN (Rec: 01/26/23 09:03 LRN [id number]) OP-PT Subjective Patient Comments Patient Comments No concerns, ready for DC to HEP. Patient Questionnaires Oswestry Low Back Index Oswestry Score 20 Oswestry Impairment 20 to 39% Impaired (Score 20- 39) Pelvic Pain and Urgency/Frequency Patient Symptom Scale Pelvic Pain Score 5 PT-OP-F Manual Assessment Start: 05/23/22 17:25 Freq: Status: Active Protocol: Document 05/26/22 14:42 LRN (Rec: 05/26/22 18:23 LRN [id number]) Manual Assessments Soft Tissue Assessment Soft Tissue Mobility Assessment Pubic symphysis increased separation at caudal half of joint. Finger widths: 3 Above umbilicus Shallow 2. 25 finger widths 2 Above umbilicus shallow 2. 5 finger widths 1 Above umbilicus 2.5 finger widths 1 Below umbilicus 3.0 finger widths 2 Below umbilicus 2.5 finger widths 3 Below umbilicus shallow 2. 5 finger widths 4 Below umbilicus shallow 2. 5 finger widths 5 Below umbilicus shallow 2. 5 finger widths PT-OP-J Posture/Palpation/Skin Start: 05/26/22 18:23 Freq: Status: Active Protocol: Document 01/15/23 08:19 LRN (Rec: 01/15/23 08:36 LRN [id number]) Palpation Assessment Location Abdomen Palpation Location TA Palpation Details Pt able to maintain TA tight with LE leg movements. PT-OP-K Range of Motion Start: 05/23/22 17:25 Freq: Status: Active Protocol: Document 06/24/22 08:20 LRN (Rec: 06/24/22 09:03 LRN [id number]) Hip Goniometric Range of Motion Hip Right Passive Testing Position Supine Abduction 40 Internal Rotation 60 External Rotation 75 Left Passive Testing Position Supine Abduction 33 Internal Rotation 45 External Rotation 75 PT-OP-M Strength Start: 05/23/22 17:25 Freq: Status: Active Protocol: Document 01/26/23 08:16 LRN (Rec: 01/26/23 09:03 LRN [id number]) Hip Strength Hip Manual Muscle Testing Right Flexion (L2) 4 Good Extension (S1) 5 Normal Abduction 5 Normal Adduction 3- Fair- External Rotation 5 Normal Internal Rotation 5 Normal Left Flexion (L2) 3+ Fair+ Extension (S1) 5 Normal Abduction 5 Normal Adduction 3- Fair- External Rotation 5 Normal Internal Rotation 5 Normal PT-OP-Q Treatments Start: 05/23/22 17:25 Freq: Status: Active Protocol: Document 01/26/23 08:16 LRN (Rec: 01/26/23 09:13 LRN [id number]) Therapeutic Exercises Supine Exercises TA/Hip flex Supine Exercise Name TA/hip Flex Side bilateral Comments MMT Diagonal Core strengthening Supine Exercise Name SLR for core stab in neutral Side bilateral Reps/Minutes 15' Prone Exercises Hip IR/ER Prone Exercise Name Hip ER/IR Comments MMT Claude hip ext Prone Exercise Name Hip Ext Side bilateral Reps/Minutes 10x 2 Sidelying Exercises TA/Hip AD Sidelying Exercise Name Hip AD Side bilateral Reps/Minutes 3x Comments MMT TA/Hip AB Sidelying Exercise Name Hip AB Side bilateral Reps/Minutes 3x Comments MMT Self-Care/Home Management Treatment Education Other Education Reviewed self care of proper posturing and equal weightbearing through LE's. Reviewed pelvic stabilization of hip AB/AD ex's and discussed PF stretching (Happy Baby Pose) when having ischial tub pain. Encouraged strengthening of TA for pelvic stability to minimize pubic pain. Activities Self-Care/Home Management Activities Issued & reviewed HEP: Trunk rot: sup (feet on wall) and standing trunk rot w/TBand, Femoral n slider/tensioner, and Core stab program (x 2). PT-OP-T Assessment and Plan Start: 05/23/22 17:25 Freq: Status: Active Protocol: Document 01/26/23 08:16 LRN (Rec: 01/26/23 09:03 LRN [id number]) Physical Therapy Assessment Goals Four Impairment Poor posture with umbilical hernia Short Term Goal (STG) Pt will be educated in proper standing/sitting posture. 06/24/22: Educated pt in proper sitting and standing posture. Used lift under toes for standing correction. STG Duration 06/06/22 (06/06/22: MET GOAL) Freight Booker Goal (LTG) Pt will be able to perform a head lift in supine without doming of abdomen and decreased discomfort at umbilicus. 07/10/22: Pt able to head lift without doming of abdomen. 08/04/22: No umbilical pain with head lift, but pt notes has discomfort when in sitting /standing - holding baby in front pack. LTG Duration 08/24/22 (08/04/22: MET GOAL ) Three Impairment R mid to low back tingling/ numbness Impairment Pt has R mid to LB tingling/ numbness with positional changes, pain rated 3/10. Short Term Goal (STG) Pt will demonstrate improved posture and awareness in sitting and with changes of positions. (07/03/22: Pt sitting more upright in L/S, demonstrates upper thoracic increased kyphosis) (07/17/22: Pt demonstrated minimal postural slump in sitting, and immediately corrected with cuing). STG Duration 07/12/22 (07/17/22: MET GOAL) Group Home Goal (LTG) Resolution of R back tingling/ numbness with positional changes (ex-sit<>stand and getting out of bed) and with lifting. 07/25/22: Occurs occasionally . 09/01/22: Occurs with movement, Occasionally: sitting and reached out sit<> stand although less frequent. 09/12/22: Occurs when getting up from sitting position or when arms are out (reaching or holding baby), when R posterolateral trunk ms are being used. 09/19/22: Not felt getting out of bed for a long time. Has tingling/numbness sith<> stand while holding of baby, and with reaching out with arms or hold a weight out with arms. 10/27/22: No pain this past week for first time. 12/04/22: 1x last week, very faint. 01/06/23: No pain in past 2 weeks. 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 25 finger widths 2 Above umbilicus shallow 2. 5 finger widths 1 Above umbilicus 2.5 finger widths 1 Below umbilicus 3.0 finger widths 2 Below umbilicus 2.5 finger widths 3 Below umbilicus shallow 2. 5 finger widths 4 Below umbilicus shallow 2. 5 finger widths 5 Below umbilicus shallow 2. 5 finger widths Pubic symphysis increased separation at caudal half of joint Short Term Goal (STG) Pt will be educated in the severity and education of her DR/umbilical hernia. 06/24/22: DR/Umbilical Hernia education. 08/04/22: Educated pt in severity factors for DR STG Duration 06/06/22 (08/04/22: MET GOAL ) Freight Booker Goal (LTG) Pt will be independent in a TA strengthening program without doming of her abdomen (to minimize her DR/symphysis pubic separation), and a pelvic stabilization for symphysis pubic dysfunction. 06/24/22: Pt introduced to K- taping. 08/04/22: Pt choosing not to use K-tape at home. 01/06/23: Pt progressed in HEP of progressive abdominal and trunk ext strengthening. 01/15/23: Add HEP: hip strengthening to HEP (hip AB) if needed. Doming with 1/2 plank LTG Duration 12/11/22 (01/23/23: MET GOAL) One Impairment Lacks appropriate self care HEP Impairment Poor body mechanics with transfer sit<>supine, sit<> stand. Short Term Goal (STG) Pt will be educated in proper body mechanics appropriate for post- DR. (06/06/22: Pt educated in sit<> sup transfer with use of support to abdomen/DR). (07/03/22: Pt educated in proper body mechanics for post - DR). STG Duration 06/06/22 (07/03/22: MET GOAL) Group Home Goal (LTG) Pt will be educated in a self care HEP to include core/ pelvic/hip strengthening. (06/06/22: Pt I/S in TA tightening in sup, and sidelie ). (07/17/22: Pt I/S in core stab of 4pt leg lifts and UE lifts). 12/04/22: Review of HEP: Prone trunk extensor strengthening (arm & leg lifts). 01/06/23: Added prone alternate arm/leg lifts & supine step outs. 01/15/23: I/S pt in hip AB & SLR strengthening. LTG Duration 03/04/23 (01/23/23: MET GOAL ) Assessment Summary Assessment Pt met her goals, but reported today she has occasional pubic and ischial tuberosity pain in standing, but has noted what she does to help control the pain. She is ready to be discharged to an independent HEP to work towards improving her core stability and hip strength. She is able to perform TA ex's without doming of her abdomen , but shows weakness with trunk rot L/Pelvic rot R. Her Hip flexors/extensors are low in strength and endurance, with pt complaining of an ache in her quads after 10-20 reps of leg lifts. The pt needs to be consistent and progressive with her HEP and especially after stopping in order to continue progressing in her core/LE strength and stability . If the pt continues to have instability after 9 months of stopping the pt would be a good candidate for core/ pelvic stabilization to control her pubic and ischial tuberosity pain. Physical Therapy Plan Discharge Physical Therapy Discharge Reasons Goals Met Discharge Comments Pt has done well with therapy, but she shows signs of pelvic instability with pubic and bilateral ishcial tuberosity pain with prolonged sitting and unequal WBing with standing. Her Diastasis Rectus has improved but is still present. She has weakness of her hips with flex , ext and abduction that is probably related to her pelvic instability. The pt appears to have a good understanding of her HEP and steps to take to improve her core & pelvic stability. The pt would be a good candidate for rehab in the future if she were to become again or have difficulty acheiving greater core stability before .
== END 2023-04-13 16:01 | disposition home or self-care (01) ==
LOC: PHYS 08:15
PROVIDERS: Family Provider Family Medicine; PCP Family Medicine; Referring Provider Specialist; Visit Provider Specialist
DX: M62.08 Separation of muscle (nontraumatic), other site (principal)
CPT/HCPCS: 97110; 97140; 97162; 97535